=== PATIENT | female | born 1945 | race Two or more races ===

== ENCOUNTER 2024-10-11 03:10 | Inpatient (IN) | payer MEDICARE, MEDICAID, SELFPAY ==
[2024-10-11] VITALS (19 sets, daily range): BP systolic 104–171; BP diastolic 69–135; PULSE 72–113; RESP 15–29; TEMP 36.6; O2SAT 93–97; BMI 32.5; BMI 27.6
--- NOTE | 2024-10-11 03:15 | EKG_ITS ---
[facility] Test Date: 2024-10-11 Pat Name: JOHNATHON TAM Department: Room: - Gender: Female Sql Manager: : 1945 Requested By: Gabino Velez Order Number: [id number] Reading MD: Gabino Velez Measurements Intervals [place] Rate: 96 P: TX: QRS: 0 QRSD: 99 T: 116 QT: 374 QTc: 474 Interpretive Statements ATRIAL FIBRILLATION LOW QRS VOLTAGE IN PRECORDIAL LEADS [QRS DEFLECTION < 1.0 mV IN CHEST LEADS] ANTEROSEPTAL MYOCARDIAL INFARCTION , PROBABLY OLD [40+ ms Q WAVE IN V1-V4] No previous ECG available for comparison /store/S0/[id number].pdf
--- NOTE | 2024-10-11 04:00 | XR_ITS ---
Examination: AP chest single view TECHNIQUE: AP portable upright chest single view Exam date and time: October 11, 2024 0409 hours Comparison May 23, 2006. INDICATIONS: Dyspnea today FINDINGS: Mild CHF Significantly large pericardial contour. Prominent vascular congestion including prominent central pulmonary arteries with septal edema throughout the lungs Pneumonia left base Prominent osteopenia IMPRESSION: Prominent CHF Left base pneumonia Pulmonary artery hypertension
--- NOTE | 2024-10-11 04:03 | EDNOTE_ITS ---
ED SOB =RME/HPI General Chief Complaint: Shortness of Breath/Dyspnea Stated Complaint: SOB Time Seen by Provider: 10/11/24 03:36 Arrival date/time: 10/11/24 03:10 RME / HPI RME / HPI Narrative: Dr. Toscano?s Main ED Evaluation: 79yo female with a history of HTN presents to the ED for a chief complaint of shortness of breath. Son at bedside states the patient was complaining of shortness of breath tonight, reporting she was wheezing. He states her symptoms continued despite sitting her up, so he brought her in for evaluation. Son and patient deny any fever, chills, sweating or any other associated symptoms. No known allergies. Patient states she stopped taking her medications 2 years ago. Related Data Home Medications ?Medication ?Instructions ?Recorded ?Confirmed Spironolact/Hydrochlorothiazid ##0 03/08/13 (Spironolact/Hctz 25/ Tab) bumetanide 2 mg tablet ##0 03/08/13 digoxin 125 mcg (0.125 mg) tablet QDAY ##0 03/08/13 furosemide 40 mg tablet ##0 03/08/13 potassium 99 mg tablet BID ##0 03/08/13 warfarin 2 mg tablet (Coumadin) ##0 03/08/13 Previous Rx's ?Medication ?Instructions ?Recorded acetaminophen 500 mg tablet 1 - 2 tab PO Q6HR PRN PAIN #30 tabs 03/06/16 (Tylenol Extra Strength) Allergies Allergy/AdvReac Type Severity Reaction Status Date / Time NKA* Allergy Uncoded 03/06/16 00:43 Review of Systems Review of Systems Systems Reviewed: All systems reviewed, normal except as documented Narrative Review of Systems: Gen: No fever, no chills, no weight loss EYES: No discharge, no visual changes, no pain HEENT: No ear pain, no congestion, no sore throat PULM: + shortness of breath, no cough, no congestion CV: No chest pain, no dyspnea on exertion, no palpitations GI: No nausea, no vomiting, no diarrhea, no pain, no constipation : No frequency, no urgency, no dysuria Musc/skel: No joint pain, no back pain Skin: No rash. Warm and dry. Psyc: No hallucinations, no depression Heme/Lymph: No easy bleeding or bruising tendencies Neuro: No weakness, no headache Past Medical History Past Medical History CARDIAC: Negative Congestive Heart Failure RESPIRATORY: Negative Chronic Obstructive Pulmonary Disease (COPD) GENITOURINARY: Negative Renal Disease ENDOCRINE: Negative Diabetes Mellitus Type 1 or Diabetes Mellitus Type 2 Social History SMOKING STATUS: Never smoker ED Exam Narrative Physical exam: GENERAL APPEARANCE: alert and oriented x 4, well-developed, well-nourished, no acute distress VITALS: All vitals were reviewed and the pulse ox is 95% on room air, which is normal according to my interpretation. HEENT: Normocephalic, atraumatic; pupils equal, round, reactive to light; EOMI; mucous membranes pink, moist; oropharynx clear NECK: Supple LUNGS: CTABL; no wheezes, no rales, no rhonchi HEART: Regular rate, regular rhythm; normal S1, S2; no murmurs ABDOMEN: non distended; normal BS; soft, no tenderness, no guarding, no rebound; no masses, no organomegaly, no hernia BACK: no CVA tenderness : Multiple chaperones present. Erythematous plaque-like extensive rash to the groin, inner thighs, mons pubis, and buttocks with multiple areas of skin breakdown without any active bleeding or discharge. EXTREMITIES: atraumatic; 3+ pitting edema to the BLE with small contusions NEUROLOGIC: awake; alert and oriented x4; cranial nerves II-XII grossly intact; no focal sensory or motor deficits PSYCHIATRIC: appropriate mood and affect SKIN: warm, dry, normal color; no rashes Course Course Course Narrative: CXR is ordered for determining the etiology of shortness of breath. Nicardipine ordered due to the patient's blood pressure being 152/118. Quality Measures none Orders Category Date Time Status Bedside COVID-19 Antigen Test NOW Care 10/11/24 05:25 Active Bedside Influenza A&B Antigen Test NOW Care 10/11/24 05:[address] Screening NOW Care 10/11/24 05:26 Active Assistant Professor Of Marine Biology NOW Care 10/11/24 04:00 Active Continuous Pulse Oximetry NOW Care 10/11/24 04:00 Completed EKG (ED ONLY) *Do not use* NOW Care 10/11/24 03:15 Completed Insert IV NOW Care 10/11/24 04:[address] chest w con Stat Exams 10/11/24 05:26 Ordered EKG (ED Only) Stat Exams 10/11/24 03:15 Ordered XR chest 1V portable Stat Exams 10/11/24 04:00 Taken Arterial Blood Gas Stat Lab 10/11/24 04:23 Completed B-Type Natriuretic Peptide Stat Lab 10/11/24 04:24 Completed Blood Culture (Lab) Stat Lab 10/11/24 05:00 Received CBC Stat Lab 10/11/24 04:24 Completed Comprehensive Metabolic Panel Stat Lab 10/11/24 05:30 Received Drug Screen,Urine Stat Lab 10/11/24 04:57 Received LDH (Lactate Dehydrogenase) Stat Lab 10/11/24 05:30 Received Lactate (Lactic Acid) Stat Lab 10/11/24 05:30 Results Magnesium Stat Lab 10/11/24 05:30 Received Partial Thromboplastin Time Stat Lab 10/11/24 04:24 Completed Phosphorous Stat Lab 10/11/24 05:30 Received Procalcitonin Stat Lab 10/11/24 05:30 Received Prothrombin Time with INR Stat Lab 10/11/24 04:24 Completed Troponin I Stat Lab 10/11/24 05:30 Received Urinalysis Stat Lab 10/11/24 04:57 Completed Azithromycin Inj [Zithromax Inj] 500 mg Med 10/11/24 04:31 Discontinued Sodium Chloride 0.9% 250 ml [Ns] 250 ml IV X1 Clotrimazole Cr 1% [Lotrimin Cr 1%] Med 10/11/24 04:05 Discontinued See Dose Instructions TOP X1 ONE Morphine Inj Med 10/11/24 05:51 Discontinued 2 mg IVP X1 ONE Nicardipine/Ns 20Mg Ivpb [Cardene Ivpb] Med 10/11/24 05:27 Active 20 mg in 200 ml IV 5 mg/hr Ondansetron Inj [Zofran Inj] Med 10/11/24 05:51 Discontinued 4 mg IV X1 ONE cefTRIAXone/D5w 1gm IV premix [Rocephin/D5w 1gm IV Med 10/11/24 04:31 Discontinued premix] 50 ml IV X1 hydrALAZINE INJ [Apresoline Inj] Med 10/11/24 05:03 Discontinued 10 mg IV X1 ONE Reevaluation(s) Reevaluation #1: Patient is now complaining of significant chest pain, mid-back pain, and shortness of breath. Morphine ordered. CT pending. Time: 05:49 Vital Signs Vital signs: Vital Signs Temperature 97.8 F 10/11/24 03:33 Pulse Rate 105 H 10/11/24 03:33 Respiratory Rate 20 10/11/24 03:33 Blood Pressure 163/107 H 10/11/24 03:33 Pulse Oximetry (%) 95 10/11/24 03:33 Oxygen Delivery Method Room Air 10/11/24 03:33 Shortness of Breath / Dyspnea MDM Narrative MDM Narrative:: Scribe Attestation: 10/11/24 Jeannie Morrison am scribing for and in the presence of Dr. Toscano. Patient data External records reviewed:: [facility] previous records (Per chart review, patient has no relevant previous ED visits.) Clinical information provided by:: patient Social determinants that could affect healthcare access:: none Patient has the following chronic illnesses:: HTN How is presenting disease/condition affected by chronic disease/condition?: uneffected by Evaluation data The following diagnostics were reviewed and interpreted by me:: lab results, radiology exam(s) and EKG tracing(s) Lab and/or radiology exams considered but not ordered:: none Interpretation Summary: CBC is normal, ABG is normal, BNP is 434, Lactate is elevated at 2.5, according to my interpretation. CXR shows cardiomegaly, widened mediastinum, vascular congestion, right middle lobe infiltrate, and a small left pleural effusion, according to my interpretation. EKG done at 0331, aFib RvR, rate of 112, left axis deviation, Q waves in V1-V3, lead III, and avF, inverted T-waves in lead III and avL, no STEMI, according to my interpretation. Medications / Prescriptions Medications or Prescriptions considered but not ordered:: none Medication administrations:: Medication Administration History Nicardipine/Sodium Chloride (Cardene Ivpb) 20 mg in 200 mls @ 50 mls/hr IV .Q4H PRN; Protocol PRN Reason: PER PROTOCOL Stop: 11/10/24 05:26 Discontinued Medications Clotrimazole (Clotrimazole Cr 1% 30 Gm Tube) 0 gm TOP X1 ONE Stop: 10/11/24 04:06 Last Admin: 10/11/24 04:30 Dose: Not Given Documented By: TC Non-Admin Reason: Other, see note Comments: Medication unavailable Hydralazine HCl (Hydralazine Inj 20 Mg/Ml Vial) 10 mg IV X1 ONE Stop: 10/11/24 05:04 Last Admin: 10/11/24 05:15 Dose: 10 mg Documented By: TC Ceftriaxone Sodium/Dextrose (Rocephin/D5w 1gm Iv Premix) 50 mls @ 100 mls/hr IV X1 ONE Stop: 10/11/24 05:00 Last Infusion: 10/11/24 05:06 Dose: Infused Documented By: Admin: 10/11/24 04:46 Dose: 100 mls/hr Documented By: TC Azithromycin 500 mg/ Sodium (Chloride) 250 mls @ 250 mls/hr IV X1 ONE Stop: 10/11/24 05:30 Last Admin: 10/11/24 04:48 Dose: 250 mls/hr Documented By: TC Morphine Sulfate (Morphine Sulf Inj 10 Mg/Ml Vial) 2 mg IVP X1 ONE Stop: 10/11/24 05:52 Ondansetron HCl (Ondansetron Inj 2 Mg/Ml Inj 2 Ml) 4 mg IV X1 ONE; Protocol Stop: 10/11/24 05:52 see above Consultations Consultation(s) initiated? (list below): No Diagnosis Shortness of Breath Differential Diagnosis: community acquired pneumonia and other (CHF exacerbation, Influenza, COVID, sepsis) Most likely diagnosis given after review of the tests above:: final dx pending at signout. Admission Indicated Admission indicated?: not indicated Admission Request Was there a request for admission?: No Disposition Plan Disposition Plan: other (specify) (Signed out to Dr. Hardin at [address] chest and labs.) Critical Care Time Critical Care Time Critical Care Time: Yes Total Critical Care Time (min.): 75 Attestation: The high probability of sudden, clinically significant deterioration in the patient?s condition required the highest level of my preparedness to intervene urgently. The services I provided to this patient were to treat and/or prevent clinically significant deterioration. Services included the following: chart data review, reviewing nursing notes and/or old charts, documentation time, senior market intelligence consultant collaboration regarding findings and treatment options, medication orders and management, direct patient care, vital sign assessments and ordering, interpreting and reviewing diagnostic studies and lab tests. Aggregate critical care time includes only time during which I was engaged in work directly related to the patient?s care, as described above, whether at bedside or elsewhere in the Emergency Department. It did not include time spent performing other reported procedures or the services of residents, students, nurses or physician assistants. Discharge Plan Prescriptions/Referrals Prescriptions/Med Rec: No Action furosemide 40 MG tablet Qty: 0 bumetanide 2 MG tablet Qty: 0 potassium 99 MG tablet BID Qty: 0 warfarin [Coumadin] 2 MG tablet Qty: 0 digoxin 125 MCG tablet QDAY Qty: 0 Spironolact/Hydrochlorothiazid (Spironolact/Hctz 25/25 Tab) 1 TAB tablet Qty: 0 acetaminophen [Tylenol Extra Strength] 500 MG tablet 1 - 2 tab PO Q6HR PRN (Reason: PAIN) Qty: 30 0RF Referrals: No Primary/Family,Physician [Primary Care Provider] - In 1 week Problem List Clinical Impression: Dyspnea, Pneumonia Patient/Caregiver Discharge Instructions Print Language: Chilean
[2024-10-11 04:27] LABS: Base Excess 1 (-3-3); HCO3 25 mEq/L (20-26); Inspired Oxygen, FIO2 21 %; O2 Saturation 98 % (91-98); PCO2 35 mmHg (32.0-48.0); PO2 87 mmHg (83-108); pH, Arterial 7.46 (7.35-7.45)
[2024-10-11 04:30] LABS: Allen Test Performed/OK; Inspired O2, VO2 Liters 2 L/min; Puncture Site Right Radial
[2024-10-11] MEDS: cefTRIAXone/D5w 1gm IV premix 50 ML IV (04:46)
[2024-10-11] MEDS: AZITHROMYCIN INJ 500 MG in SODIUM CHLORIDE 0.9% 250 ML 250 ML 250 MG IV (04:48)
[2024-10-11 04:51] LABS: Basophils % (Auto) 1 % (0-2.5); Eosinophils # (Auto) 0.2 Thou/mm3 (0.0-0.5); Eosinophils % (Auto) 3 % (0-10); Hematocrit 44.5 % (36.0-46.0); Hemoglobin 14.6 g/dL (12.0-16.0); Immature Granulocytes % (Auto) 1 % (0-0); Immature Granulocytes Auto 0.03 Thou/mm3 (0.00-0.00); Lymphocytes # (Auto) 1.1 Thou/mm3 (1.0-4.8); Lymphocytes % (Auto) 17 % (10-50); Mean Corpuscular HGB Conc 32.8 g/dl (31.0-37.0); Mean Corpuscular Hemoglobin 29.9 pg (25.0-35.0); Mean Corpuscular Volume 91 fL (80-100); Monocytes # (Auto) 0.7 Thou/mm3 (0.0-0.8); Monocytes % (Auto) 10 % (0-12); Neutrophils # (Auto) 4.6 Thou/mm3 (1.8-7.7); Neutrophils % (Auto) 69 % (37-80); Nucleated Red Blood Cell % 0 /100 WBC (0); Platelet Count 164 Thou/mm3 (140-440); RDW Standard Deviation 48.9 fL (36.4-46.3); Red Blood Count 4.88 Miln/mm3 (4.00-5.20); White Blood Count 6.7 Thou/mm3 (3.6-11.0)
[2024-10-11 05:12] LABS: INR 1.1 (0.9-1.3); Partial Thromboplastin Time 30.5 Seconds (22.0-36.0); Prothrombin Time 12.4 Seconds (9.0-12.2)
[2024-10-11 05:14] LABS: B-Type Natriuretic Peptide 434 pg/mL (0-100)
[2024-10-11] MEDS: hydrALAZINE INJ 20 MG/ML VIAL 10 MG IV (05:15)
[2024-10-11 05:38] LABS: Collection Type, Urine Catheter
[2024-10-11 05:46] LABS: Bilirubin,Urine Negative (Negative); Blood,Urine Negative (Negative); Clarity,Urine Turbid (Clear/Hazy); Color,Urine Yellow (Lt Yel-Yel); Glucose, Urine Negative (Negative); Ketones,Urine Negative (Negative); Leukocyte Esterase,Urine Positive (Negative); Nitrite,Urine Negative (Negative); Protein,Urine 1+ (Neg - Trace); RBC,Urine 4 /hpf (0-3); Specific Gravity,Urine 1.026 (1.001-1.035); Squamous Epithelial Cell,Urine 5 /hpf (0-5); WBC,Urine 10 /hpf (0-5)
[2024-10-11 05:46] LABS: Lactate (Lactic Acid) 2.5 mMol/L (0.4-2.0)
[2024-10-11] MEDS: NICARDIPINE/NS 20MG IVPB 20 MG/200 ML BAG 25 MG IV (05:50)
--- NOTE | 2024-10-11 06:06 | XR_ITS ---
Examination: CT abdomen with intravenous contrast CT pelvis with intravenous contrast 2-D coronal reconstructions 2-D sagittal reconstructions Date and time of exam:October 11, 2024 0651 hours INDICATION: Chest pain shortness of breath hypoxia and abdominal pain today. CTDI: vol (mGy) 18.8 DLP: (mGycm) 880 Technique: Multiple axial sections of the abdomen and pelvis have been obtained. 64 slice high-resolution scanner used. 3 mm axial sections have been obtained, post intravenous injection 100 cc Isovue-370 2-D sagittal, coronal reconstructions obtained. Low dose protocols were performed. One or more of the following dose reduction techniques were used; automated exposure control, adjustment of the mA and/or KV according to patient size, use of iterative reconstruction technique. Findings: Please see the CT chest report Moderate enlargement cardiac contour Pneumonia at the left base with small left pleural effusion Liver is irregular in contour with heterogeneous radiodensity Anasarca Spleen is not enlarged Gallbladder sludge and small stones with gallbladder wall thickening Left adrenal nodules, 12 mm, 20 mm, indeterminate Moderate bilateral renal parenchymal scar formation, no renal or ureteral calculi, no hydronephrosis No bowel obstruction Normal appendix Umbilical hernia defect, 32 mm, containing transverse colon but no incarcerated bowel Atrophic anteverted uterus Moderate to large amount of stool in the rectum with thickening of the rectal wall Severe osteopenia Urinary Kearns catheter in contracted urinary bladder, urinary bladder wall thickening IMPRESSION: Suspect primary hepatocellular disease Anasarca Recommend hepatobiliary sonography to exclude acute calculus cholecystitis Indeterminate left adrenal nodules, recommend MRI abdomen adrenal glands follow up to exclude left adrenal gland tumors Moderate bilateral renal parenchymal scar formation, no hydronephrosis Normal appendix 32 mm umbilical hernia defect containing transverse colon but no incarcerated bowel or bowel obstruction Moderate to large amounts of stool in the rectum with thickening of the rectal wall, differential would include proctitis Cystitis pattern
--- NOTE | 2024-10-11 06:07 | XR_ITS ---
Examination: CT brain head without contrast. 2-D sagittal coronal reconstructions Date and time of exam:October 11, 2024 at 0638 hours INDICATIONS: Onset altered mental status in a COMPARISON: April 03, 2005 CTDI: vol (mGy):48.6 DLP: (mGycm):1010 Technique: Multiple CT axial sections of the brain have been obtained, 5 mm slice thickness. Contrast has not been administered. 2-D sagittal, coronal reconstructions have been obtained Low dose protocols were performed. One or more of the following dose reduction techniques were used; automated exposure control, adjustment of the mA and/or KV according to patient size, use of iterative reconstruction technique. Findings: No significant ventricular enlargement. Intra-axial or extra-axial hemorrhage density is not seen. No mass effect or midline shift Basal cisterns are not remarkable. Fourth ventricle is midline. Cranial vault intact. Impression: Negative for acute hemorrhage, mass effect or midline shift Clinical correlation advised and follow up accordingly
--- NOTE | 2024-10-11 06:07 | XR_ITS ---
Examination: CTA chest with intravenous contrast 2-D reconstructions 3-D reconstructions, vascular Date and time of exam: October 11, 2024 0651 hours INDICATIONS: Hypoxia chest pain shortness of breath today CTDI: vol (mGy) 12.5 DLP: (mGycm) 440 Technique: Multiple axial sections of the thorax have been obtained. 3 mm slice thickness, from below the hemidiaphragms to above the apices of the lungs. Mediastinal and lung density settings have been obtained. 2-D sagittal and coronal reconstructions. 3-D angiographic renderings, 3-D volume renderings, 3D post processing, vascular maximum intensity projections obtained. Contrast administered is 100 cc Isovue-370. Low dose protocols were performed. One or more of the following dose reduction techniques were used; automated exposure control, adjustment of the mA and/or KV according to patient size, use of iterative reconstruction technique. Findings: Mild thyromegaly AP dimension ascending thoracic aorta 3.8 cm no thoracic aortic dissection Pulmonary artery hypertension, main pulmonary artery segment 4.5 cm No pulmonary artery filling defects Prominent four-chamber cardiac enlargement Mitral valvular calcification Anasarca Prominent vascular congestion with septal pulmonary edema throughout the lungs Opacity left base consistent with pneumonia with small left minimal right pleural fluid Severe osteopenia with moderate thoracic spondylosis IMPRESSION: Prominent four-chamber cardiac enlargement Mild CHF Pulmonary artery hypertension Negative for pulmonary artery emboli Mild left base pneumonia
[2024-10-11 06:08] LABS: Amphetamine/Methamp Scrn,U Negative (Negative); Barbiturate Screen,Urine Negative (Negative); Benzodiazepines Screen,Urine Negative (Negative); Benzoylecgonine Screen, Ur Negative (Negative); Fentanyl Screen,Urine Negative (Negative); Opiate Screen,Urine Negative (Negative); THC Screen,Urine Negative (Negative)
[2024-10-11] MEDS: MORPHINE SULF INJ 10 MG/ML VIAL 2 MG IVP (06:09)
--- NOTE | 2024-10-11 06:11 | XR_ITS ---
Examination: Venous duplex lower extremity sonogram, bilateral. Date and time of exam: October 11, 2024 0744 hours INDICATIONS: Bilateral leg swelling and pain beginning 3 weeks ago Technique: Multiple sonographic images of the deep venous system have been obtained. B-mode/2-D grayscale imaging of vascular structures and Doppler spectral analysis (waveforms) and color performed Both legs are examined. Findings: Deep venous systems do not demonstrate abnormal echogenicity. Right knee popliteal cyst 4.3 x 1.6 x 2.8 cm All visualized deep veins exhibit compressibility. All visualized deep veins exhibit augmentation. Impression: Negative for deep vein thrombosis
[2024-10-11] MEDS: ONDANSETRON INJ 2 MG/ML INJ 2 ML 4 MG IV (06:16)
[2024-10-11] MEDS: FUROSEMIDE INJ 10 MG/ML 4ML VIAL 80 MG IVP (06:16)
[2024-10-11] MEDS: MethylPREDNISolone SOD SUCC 62.5 MG/ML 2ML VIAL 125 MG IVP (06:17)
[2024-10-11 06:24] LABS: Alanine Aminotransferase 18 U/L (10-49); Albumin/Globulin Ratio 1.6 (1.2-2.2); Alkaline Phosphatase 69 U/L (46-116); Anion Gap 10 (7-16); Aspartate Amino Transferase 13 U/L (0-34); BUN/Creatinine Ratio 28 Ratio (12-20); Bilirubin,Total 1.9 mg/dL (0.3-1.2); Blood Urea Nitrogen 17 mg/dL (9-23); Calcium 10.2 mg/dL (8.3-10.6); Calcium (Corrected) 10.2 mg/dL (8.5-10.1); Carbon Dioxide 27.4 mMol/L (20.0-31.0); Chloride 106 mMol/L (98-107); Creatinine (Component) 0.6 mg/dL (0.6-1.3); Estimated Creatinine Clearance 73.6 mL/min (>60); Globulin 2.5 gm/dL (2.3-3.5); Glucose 77 mg/dL (74-106); LDH (Lactate Dehydrogenase) 375 U/L (120-246); Magnesium 1.6 mg/dL (1.6-2.6); Osmolality,Calculated 285 (275-295); Phosphorous 2.4 mg/dL (2.4-5.1); Potassium 3.4 mMol/L (3.4-5.1); Procalcitonin 0.17 ng/ml (0.0-0.49); Sodium 143 mMol/L (136-145); Total Protein 6.5 gm/dL (5.7-8.2); eGFR > 60 See Note
[2024-10-11 06:26] LABS: Troponin I 1.761 ng/mL (0.0-0.045)
[2024-10-11] MEDS: NITROGLYCERIN OINT 2% 1 INCH PACKET 2 INCH TOP (06:26)
[2024-10-11] MEDS: ALBUTEROL/IPRATROPIUM (Duoneb) RT SOL 3 ML NEBU INH (06:28)
[2024-10-11 06:50] LABS: Thyroid Stimulating Hormone 4.27 uIU/mL (0.55-4.78)
[2024-10-11 06:51] LABS: D-Dimer 3230 ng/mL (<600)
[2024-10-11] MEDS: ASPIRIN 81 MG CHEW 324 MG PO (07:29)
--- NOTE | 2024-10-11 07:32 | XR_ITS ---
Examination: Abdomen sonogram, Limited Date and time of exam: October 11, 2024 1104 hours INDICATIONS: Right abdomen tenderness today Technique: Real-time cazares scale transabdominal sonographic images of the upper abdomen obtained. Findings: Multiple small gallstones Distended gallbladder Gallbladder wall 0.7 cm with edema Common bile duct 0.5 cm Pancreatic head 2.1 cm Liver 15.9 cm lobular contour fatty infiltration Normal hepatopedal portal venous flow Patent IVC IMPRESSION: Acute calculus cholecystitis Consider MRCP follow-up to confirm cholecystitis and exclude small stones in the common bile duct
[2024-10-11] MEDS: FLUCONAZOLE/NS 400 MG IVPB 400 MG/200 ML BAG 100 MG IV (07:36)
[2024-10-11] MEDS: MORPHINE SULF INJ 10 MG/ML VIAL 4 MG IVP (07:39)
[2024-10-11 08:18] LABS: Troponin I 1.656 ng/mL (0.0-0.045)
[2024-10-11 08:43] LABS: Reflex Lactate? Y
[2024-10-11 09:06] LABS: Lactic Acid, 3 HR 2.4 mMol/L (0.4-2.0)
[2024-10-11 09:19] LABS: Respiratory Syncytial Virus Ag Negative (Negative)
[2024-10-11] MEDS: METOPROLOL TARTRATE 25 MG TABLET PO (11:46)
--- NOTE | 2024-10-11 11:47 | ECHO_ITS ---
Transthoracic Echo Report Ht (in): 62 Wt (lb): 178 Exam Location: Echo Lab Status: Emergency [employer] Technician: Mandie Lang Indications: Procedure Performed: BP: 129 / 94 HR: 105 Technical Quality: Technically difficult study MEASUREMENTS (Male / Female) Normal Values 2D ECHO LVOT Diameter 1.9 cm LA Volume Index 82.8 cm?/m? 16 - 28 cm?/m? M-MODE Aortic Root Diameter MM 2.1 cm LA Systolic Diameter MM 7.0 cm LA Ao Ratio MM 3.3 AV Cusp Separation MM 1.5 cm DOPPLER AV Peak Velocity 140.0 cm/s AV Peak Gradient 7.8 mmHg AV Mean Gradient 4.0 mmHg AV Velocity Time Integral 23.6 cm AI Peak Velocity 364.0 cm/s AI Peak Gradient 53.0 mmHg AI Pressure Half Time 849.0 ms LVOT Peak Velocity 90.9 cm/s LVOT Peak Gradient 3.3 mmHg LVOT Velocity Time Integral 13.3 cm LVOT Cardiac Index 2070.4 cm?/min?m? AV Area Cont Eq vti 1.6 cm? AV Area Cont Eq pk 1.8 cm? MV Area PHT 4.4 cm? MR Peak Velocity 452.0 cm/s MR Peak Gradient 81.7 mmHg Mitral E Point Velocity 73.7 cm/s LV E' Lateral Velocity 7.4 cm/s Mitral E to LV E' Lateral Ratio 10.0 LV E' Septal Velocity 4.8 cm/s Mitral E to LV E' Septal Ratio 15.4 TR Peak Velocity 405.3 cm/s TR Peak Gradient 65.7 mmHg PV Peak Velocity 144.0 cm/s PV Peak Gradient 8.3 mmHg FINDINGS Left Ventricle Normal left ventricular size and systolic function with no obvious regional wall motion abnormalities. Normal left ventricular diastolic filling pattern for age. The ejection fraction is visually estimated at 55 %. Right Ventricle The right ventricle is normal in size. Right ventricular systolic function is moderately decreased. The estimated right ventricular systolic pressure, 83 mmHg. RAP 15. Left Atrium The left atrial cavity size is severely increased. Right Atrium The right atrial cavity size is severely increased. Atrial Septum The interatrial septum appears normal with no evidence of a shunt. Aorta The aorta is normal by two-dimensional, color flow and Doppler interrogation. Mitral Valve The mitral valve is normal by two-dimensional, color flow and Doppler interrogation. There is moderate mitral valve regurgitation. Mild MAC Aortic Valve [id number] aortic valve regurgitation. Tricuspid Valve The tricuspid valve is normal by two-dimensional, color flow and Doppler interrogation. There is moderate tricuspid valve regurgitation. Pulmonic Valve The pulmonic valve is not well visualized. There is no significant pulmonic valve regurgitation. Vessels Less than 50% respiratory change in dimension of the inferior vena cava abnormal. Pericardium The pericardium is normal by two-dimensional imaging. There is no significant pericardial effusion. CONCLUSIONS Indication: CHF and PAH Normal left ventricular size. Estimated EF 55%. RV is normal in size. RV systolic function is moderately decreased. Estimated RVSP, 83 mmHg. RAP 15. Severe biatrial dilation. Severe mitral annulus calcification with mild stenosis Moderate MR and TR. Aortic valve sclerosis with Mild to moderate aortic regurgitation Less than 50% respiratory change in dimension of the inferior vena cava abnormal. Domitila Saba (Electronically Signed) Final Date: 13 October 2024 00:40
[2024-10-11] MEDS: Erythromycin Op Oint 0.5% 1 GM PACKET LEFT EYE (11:48)
[2024-10-11] MEDS: POTASSIUM CHL 10 mEq IVPB 10 MEQ/100 ML BAG 100 MEQ IV (11:49)
[2024-10-11] MEDS: Magnesium Sulfate 2 GM Ivpb 2 GM/50 ML BAG IV (11:49)
[2024-10-11 13:35] LABS: Troponin I 1.608 ng/mL (0.0-0.045)
--- NOTE | 2024-10-11 13:59 | XR_ITS ---
Examination: AP pelvis single view TECHNIQUE: AP supine pelvis portable single view Exam date and time: October 11, 2024 1503 hours INDICATIONS: Patient fell today with into the pelvis, pelvic pain FINDINGS: The films are rotated No acute hip or pelvic fracture noted IMPRESSION: Limited study No acute hip or pelvic fracture noted Repeat this study short-term as clinically warranted
--- NOTE | 2024-10-11 14:03 | XR_ITS ---
Examination: ARELIS, hepatobiliary radioisotope scan Gallbladder ejection fraction study. Date and time of exam: October 12, 2024 at 0929 hrs. Indications: Upper abdominal pain this week, multiple gallstones on gallbladder sonogram October 11, 2024 Technique: 5.8 mCi of 99M Hepatolite administered. Serial imaging then obtained from immediate through 60 minutes. 1.6 mcg selective catheter Kinevac administered for gallbladder ejection fraction study. Findings: Radioisotope activity within the liver is reasonably homogenous. Gallbladder, common bile duct small bowel activity noted Impression: Gallbladder activity Abnormal gallbladder ejection fraction, 23%, normal greater than 35%
--- NOTE | 2024-10-11 14:07 | ESHP_ITS ---
Documentation for date of: 10/11/24 HPI History of Present Illness Chief complaint: Shortness of breath History of present illness: 79-year-old female with past medical history of atrial fibrillation, hypertension, coronary artery disease, anticoagulated with warfarin presents to the ED due to shortness of breath. Per this time patient started developing shortness of breath 1 day ago. Shortness of breath on exertion and at rest reported. Patient also has been having leg swelling for the past 2 weeks that has been progressing. Patient also complaining of right upper extremity pain. 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 Denies headache, blurry vision, chest pain, orthopnea, PND. Patient will be admitted for acute hypoxic respiratory failure secondary to CHF exacerbation. ED course: Vitals on arrival significant for tachycardia, blood pressure 163/107 rest of vitals unremarkable. Labs significant for D-dimers 3230, ABG showed pH 7.46, lactic acid 2.4, corrected calcium 10.2, total bilirubin 1.9, LDH 375, troponin 1.608, BNP 434, UA was done negative for infection, U-Tox negative, RSV negative. Chest x-ray showed left base pneumonia, prominent CHF and pulmonary artery hypertension. Abdominal CT showed Suspect primary hepatocellular disease, Anasarca, Recommend hepatobiliary sonography to exclude acute calculus cholecystitis, Indeterminate left adrenal nodules, recommend MRI abdomen adrenal glands follow up to exclude left adrenal gland tumors, Moderate bilateral renal parenchymal scar formation, no hydronephrosis, Normal appendix, 32 mm umbilical hernia defect containing transverse colon but no incarcerated bowel or bowel obstruction, Moderate to large amounts of stool in the rectum with thickening of the rectal, wall, differential would include proctitis, Cystitis pattern. Chest CTA negative for PE. Head CT negative. Ultrasound of bilateral lower extremities negative for DVT. Gallbladder ultrasound showed acute calculus cholecystitis. EKG showed atrial fibrillation. PMHx: As above SxHx: None Social Hx: Denies smoking, denies illicit substances, denies alcohol use FHx: Unknown Review of Systems Review of Systems ROS Unobtainable: unobtainable due to mental status Exam Vital Signs Temp Pulse Resp BP Pulse Ox O2 Del Method O2 Flow Rate 97.8 F 90 17 116/79 95 Nasal Cannula 2 10/11/24 03:33 10/11/24 12:21 10/11/24 12:21 10/11/24 12:06 10/11/24 12:21 10/11/24 12:06 10/11/24 12:21 Narrative Exam Physical Exam GENERAL: NAD, AAOx3 HEENT: Moist mucosa. Eyes open, symmetrical, & clear CARDIO: Heart RRR, left upper sternal border murmur, mitral area murmur PULM: Bilateral crackles GI: Abdomen soft, nondistended, tenderness pain on palpation. BSx4 : Excoriations around the genital area SKIN/MSK/EXT: Right lower extremity pitting edema +2, tenderness pain on palpation bilateral lower extremities. Bruising on all 4 extremities pedal pulses present B/L NEURO: AAOx3, no focal neuro deficits, able to move all 4 extremities Results: Labs 10/11/24 04:24 10/11/24 05:30 Labs: Short CBC 10/11/24 Range/Units 04:24 WBC 6.7 (3.6-11.0) Thou/mm3 Hgb 14.6 (12.0-16.0) g/dL Hct 44.5 (36.0-46.0) % Plt Count 164 (140-440) Thou/mm3 BMP 10/11/24 05:30 Sodium 143 Potassium 3.4 Chloride 106 Carbon Dioxide 27.4 BUN 17 Creatinine 0.6 Glucose 77 Calcium 10.2 Cardiac Enzymes 10/11/24 10/11/24 10/11/24 Range/Units 05:30 07:40 13:09 Troponin I 1.761 H* 1.656 H* 1.608 H* (0.0-0.045) ng/mL Liver Function 10/11/24 Range/Units 05:30 Total Bilirubin 1.9 H (0.3-1.2) mg/dL AST 13 (0-34) U/L ALT 18 (10-49) U/L Alkaline Phosphatase 69 (46-116) U/L Albumin 4.0 (3.4-4.8) gm/dL Urine 10/11/24 Range/Units 04:57 Urine Color Yellow (Lt Yel-Yel) Urine Clarity Turbid A (Clear/Hazy) Urine pH 6.0 (5.0-7.0) Ur Specific [place] 1.026 (1.001-1.035) Urine Protein 1+ A (Neg - Trace) Urine Glucose (UA) Negative (Negative) ABG Interpretation ABG results: 10/11/24 04:23 ABG pH 7.46 H ABG pCO2 35 ABG pO2 87 ABG HCO3 25 ABG O2 Saturation 98 ABG Base Excess 1 Quality Measures Quality Measures none Advance care planning discussed with:: patient Medications Home Medications and Allergies Home Medications ?Medication ?Instructions ?Recorded ?Confirmed ?Type Spironolact/Hydrochlorothiazid ##0 03/08/13 History (Spironolact/Hctz Tab) bumetanide 2 mg tablet ##0 03/08/13 History digoxin 125 mcg (0.125 mg) tablet QDAY ##0 03/08/13 H istory furosemide 40 mg tablet ##0 03/08/13 History potassium 99 mg tablet BID ##0 03/08/13 History warfarin 2 mg tablet (Coumadin) ##0 03/08/13 History Allergies Allergy/AdvReac Type Severity Reaction Status Date / Time No Known Allergies Allergy Unverified 10/11/24 11:51 Visit Medications Acetaminophen (Acetaminophen 325 Mg Tablet) 650 mg PO Q6H PRN PRN Reason: Fever >101.5 Stop: 11/10/24 11:43 Acetaminophen (Acetaminophen 325 Mg Tablet) 650 mg PO Q6H PRN PRN Reason: PAIN SCALE 1-3 (mild Stop: 11/10/24 11:43 Docusate Sodium (Docusate Sod 100 Mg Capsule) 100 mg PO QDAY [facility]; Protocol Stop: 11/11/24 08:59 Furosemide (Furosemide Inj 10 Mg/Ml 4ml Vial) 40 mg IVP BIDD [facility] Stop: 11/10/24 17:59 Piperacillin/Tazobactam/Dextrose (Zosyn) 3.375 gm in 50 mls @ 12.5 mls/hr IV Q8HR [facility] Stop: 10/18/24 21:59 Piperacillin/Tazobactam/Dextrose (Zosyn) 3.375 gm in 50 mls @ 100 mls/hr IV X1 ONE Stop: 10/11/24 14:29 Heparin Sodium/Dextrose (Heparin In D5w Ivpb) 25,000 unit in 250 mls @ 9.689 mls/hr IV .Q24H [facility]; Protocol Stop: 10/25/24 13:59 Ondansetron HCl (Ondansetron Inj 2 Mg/Ml Inj 2 Ml) 4 mg IV Q6H PRN; Protocol PRN Reason: NAUSEA OR VOMITING Stop: 11/10/24 11:43 Sennosides (Senna Tablet) 1 tab PO QDAY [facility]; Protocol Stop: 11/11/24 08:59 Discontinued Medications Albuterol/Ipratropium (Albuterol/Ipratropium (Duoneb) Rt Krystina 3 Ml Nebu) 3 ml INH X1 ONE Stop: 10/11/24 06:13 Last Admin: 10/11/24 06:28 Dose: 3 ml Aspirin (Aspirin 81 Mg Chew) 324 mg PO X1 ONE Stop: 10/11/24 06:40 Last Admin: 10/11/24 07:29 Dose: 324 mg Clotrimazole (Clotrimazole Cr 1% 30 Gm Tube) 0 gm TOP X1 ONE Stop: 10/11/24 04:06 Last Admin: 10/11/24 04:30 Dose: Not Given Enoxaparin Sodium (Enoxaparin Sod Inj 40 Mg/0.4 Ml Syringe) 40 mg SC QDAY [facility] Stop: 10/26/24 08:59 Erythromycin (Erythromycin Op Oint 0.5% 1 Gm Packet) 1 gm LEFT EYE X1 ONE Stop: 10/11/24 07:42 Last Admin: 10/11/24 11:48 Dose: 1 gm Furosemide (Furosemide Inj 10 Mg/Ml 4ml Vial) 80 mg IVP X1 ONE Stop: 10/11/24 06:04 Last Admin: 10/11/24 06:16 Dose: 80 mg Heparin Sodium (Porcine) (Heparin Sod Inj 5000 Unit/Ml Vial) 4,000 unit IV X1 ONE; Protocol Stop: 10/11/24 13:56 Hydralazine HCl (Hydralazine Inj 20 Mg/Ml Vial) 10 mg IV X1 ONE Stop: 10/11/24 05:04 Last Admin: 10/11/24 05:15 Dose: 10 mg Ceftriaxone Sodium/Dextrose (Rocephin/D5w 1gm Iv Premix) 50 mls @ 100 mls/hr IV X1 ONE Stop: 10/11/24 05:00 Last Infusion: 10/11/24 05:06 Dose: Infused Azithromycin 500 mg/ Sodium (Chloride) 250 mls @ 250 mls/hr IV X1 ONE Stop: 10/11/24 05:30 Last Infusion: 10/11/24 06:10 Dose: Infused Nicardipine/Sodium Chloride (Cardene Ivpb) 20 mg in 200 mls @ 50 mls/hr IV .Q4H PRN; Protocol PRN Reason: PER PROTOCOL Stop: 11/10/24 05:26 Last Titration: 10/11/24 06:13 Dose: 0 mg/hr, 0 mls/hr Fluconazole (Diflucan/Ns Ivpb) 400 mg in 200 mls @ 100 mls/hr IV X1 ONE Stop: 10/11/24 08:03 Last Infusion: 10/11/24 09:36 Dose: Infused Magnesium Sulfate (Magnesium Sulfate Ivpb) 2 gm in 50 mls @ 25 mls/hr IV X1 ONE Stop: 10/11/24 09:34 Last Admin: 10/11/24 11:49 Dose: 25 mls/hr Potassium Chloride (Kcl Ivpb) 10 meq in 100 mls @ 100 mls/hr IV STAT STA Stop: 10/11/24 08:34 Last Infusion: 10/11/24 13:21 Dose: Infused Methylprednisolone Sodium Succinate (Methylprednisolone Sod Succ 62.5 Mg/Ml 2ml Vial) 125 mg IVP X1 ONE Stop: 10/11/24 06:13 Last Admin: 10/11/24 06:17 Dose: 125 mg Metoprolol Tartrate (Metoprolol Tartrate 25 Mg Tablet) 25 mg PO X1 ONE Stop: 10/11/24 07:07 Last Admin: 10/11/24 11:46 Dose: 25 mg Morphine Sulfate (Morphine Sulf Inj 10 Mg/Ml Vial) 2 mg IVP X1 ONE Stop: 10/11/24 05:52 Last Admin: 10/11/24 06:09 Dose: 2 mg Morphine Sulfate (Morphine Sulf Inj 10 Mg/Ml Vial) 4 mg IVP X1 ONE Stop: 10/11/24 06:04 Last Admin: 10/11/24 07:39 Dose: 4 mg Nitroglycerin (Nitroglycerin Oint 2% 1 Inch Packet) 2 inch TOP X1 ONE Stop: 10/11/24 06:04 Last Admin: 10/11/24 06:26 Dose: 2 inch Ondansetron HCl (Ondansetron Inj 2 Mg/Ml Inj 2 Ml) 4 mg IV X1 ONE; Protocol Stop: 10/11/24 05:52 Last Admin: 10/11/24 06:16 Dose: 4 mg Assessment & Plan Plan 79-year-old female with past medical history of atrial fibrillation, hypertension, coronary artery disease, remote hx of anticoagulation with warfarin presents to the ED due to shortness of breath. Per this time patient started developing shortness of breath 1 day ago. Shortness of breath on exertion and at rest. Patient also has been having leg swelling for the past 2 weeks that has been progressing. Patient also complaining of right upper extremity pain. 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 Admitted for acute hypoxic respiratory failure secondary to CHF exacerbation. #Acute hypoxic respiratory failure secondary to #CHF #Pulmonary hypertension #Left-sided pneumonia #Concern for PE-ruled out Patient presented to the ED with shortness of breath and mild bilateral lower extremity edema On examination patient noted to have bilateral crackles Chest x-ray shows prominent CHF pattern Patient was having tenderness in the bilateral lower extremities Venous ultrasound of bilateral lower extremities negative for DVT CTA chest negative for pulmonary embolism ? Lasix 40 mg twice daily ? Strict I's and O's ? Fluid restriction 1200 mL ? Daily weights ? IV Zosyn ? Echo ordered ? Blood cultures ordered ? Cardiology consulted appreciate recommendations #Atrial fibrillation EKG showed atrial fibrillation [id number]: 5 ? On heparin drip ? Pending cardiology recommendations #Hypertension Patient currently normotensive Patient does not take any medications for more than 7 years ? Consider adding antihypertensives as needed #Concern for acute calculus cholecystitis?low suspicion Patient has tenderness on the abdomen Gallbladder ultrasound showed acute cholecystitis Spoke to Dr. Barrera has very low suspicion for acute cholecystitis ? HIDA scan ordered ? General Surgeon Dr. Barrera consulted #Concern for malnutrition ? Dietitian consulted ? Consider social work associate referral #Multiple bruises Patient has multiple bruises across her body ? Multiple x-rays ordered follow-up Case discussed with my senior Dr. Marks PGY-[address] Ani Parr MD PGY-1 Disposition: Telemetry Fluids: None Feeding: Cardiac diet Thrombo prophylaxis: Heparin drip Gastric Ulcer prophylaxis: None CODE STATUS: Full code Senior resident attestation: Patient is an 79-year-old female, unkempt appearance, accompanied by son who provides most of the H&P as patient did not volunteer much history, but did answer simple questions appropriately. Per son patient has not taking any medications or kept up with any doctors appointments for the past 5 or 6 years, since he moved in with her. Prior to that he reported that patient used to have her medications in a pillbox and will take them regularly, but then she stopped taking medications. Chart review shows at 1 time patient was anticoagulated with warfarin, he was taking digoxin. Son is not aware if patient has any cardiac conditions, prior history of A-fib or cardiac murmur. He brought her to be checked out in the ER because of bilateral lower extremity swelling and edema, which started 2 weeks ago. Denied chest pain denied fever, did report shortness of breath. Per son, patient was ambulatory 2 weeks prior to presentation. #Concern for acute on chronic CHF #Acute hypoxic respiratory failure #Pulmonary arterial hypertension on CTPA #NSTEMI, likely type II #History of atrial fibrillation?rate controlled ? On 4 L nasal cannula oxygen, saturating well, cardiomegaly on chest x-ray, elevated D-dimers, CT angiogram was ordered, pulm embolism ruled out but showed pulmonary arterial hypertension, patient has loud 5/6 systolic murmur aortic and pulmonic area, patient denies history of chest pain, NSTEMI likely type II in the setting of acute hypoxic respiratory failure and pneumonia, troponins already peaked ? IV diuresis Lasix 40 mg twice daily, with strict I's and O's, Kearns's catheter ordered ? Echocardiogram ordered ? Cardiology consult to Dr. Rosa Kraus placed, appreciate recommendations ? Heparin drip initiated for anticoagulation as patient has high [id number] score, also not on current anticoagulation due to noncompliance with medications, high risk of stroke. #Pulmonary embolism ruled out #DVT ruled out ?Bilateral lower limb swelling likely due to CHF, ruled out DVT on Doppler ultrasound, pulm embolism ruled out on CT angiogram #Concern for acute calculus cholecystitis ?ultrasound gallbladder reported as caute calculus cholecystitis due to gallbladder wall edema, but patient does not have right upper quadrant tenderness, general surgeon Dr. Barrera was consulted, was not impressed with the diagnosis of cholecystitis, recommended getting HIDA scan to rule out acute cholecystitis. ? IV Zosyn 3.375 every 8 hourly, started 10/11/2024 ? Follow-up blood cultures #Pneumonia ? Bilateral pneumonia likely community-acquired, IV Zosyn for now, follow microbiology results. Patient evaluated and examined at the bedside, plan of care discussed with rest of the team including my attending physician, except as noted. Quresh PGY2 Attending Provider Attestation/Addendum Britany Valentin DO, attest that I was physically present for the blair portions of the service and evaluated the patient with the resident and I reviewed and discussed the case with the resident and agree with the resident's findings and plans of care as documented above Patient is an 79-year-old female with past medical history of A-fib, hypertension, CAD who was brought to ED for worsening shortness of breath. Patient had about 1 day of shortness of breath. She is noted to have bilateral lower extremity edema that has been progressive for the past 2 weeks. Patient is noted to have some scattered bruising on her bilateral lower extremities and some abrasions over her left elbow and forearm, but denies any recent falls. Her bilateral eyes appear injected as well consistent with bacterial conjunctivitis. Chest x-ray was done in the ED showing a large cardiac silhouette with left base pneumonia and vascular congestion. Findings are also consistent with pulmonary artery hypertension. Patient endorses dyspnea on exertion. CT abdomen pelvis shows possible acute cholecystitis, but have low clinical suspicion for this as patient has no pain and was able to tolerate her lunch without issue. A CTA was done due to elevated D-dimer and pulmonary embolism was ruled out. Bilateral lower extremity ultrasound also was negative for any DVT. Patient does not appear to take any medications at home. Will admit patient to telemetry for further workup medical management of acute CHF exacerbation versus pulmonary hypertension. Will order echo and consult cardiology for further recommendations. Will start patient on Lasix 40 mg IV twice daily. Patient is currently on room air at time of evaluation and does not appear to be in acute distress. However, patient was noted to have acute hypoxic respiratory failure upon presentation, which appears to have improved with receiving 80 mg of Lasix in the ED. Will start patient on heparin drip given history of A-fib and elevated [id number] score of 5. Will start patient on on erythromycin eyedrops due to concern for conjunctivitis.
--- NOTE | 2024-10-11 14:22 | XR_ITS ---
Examination: Bilateral femur 4 views Technique one AP lateral right and left femur total 4 views Exam date and time: October 11, 2024 1509 hours INDICATIONS: Patient fell today with injury to the right and left leg, femur pain FINDINGS: No right or left hip fracture or hip dislocation Shaft of the right and left femur appear intact The patient's cooperation is limited in the views are nonstandard IMPRESSION: No acute femur fracture is noted
--- NOTE | 2024-10-11 16:30 | PC.NURSE ---
Patient report given to Luis Miguel at [facility] for Hida scan, per tech will be able to do Hida scan for tomorrow chantal 10/12 between 8-9 am, please keep patient NPO after midnight on 10/11.
[2024-10-11] MEDS: PIPER/TAZO 3.375 GM 3.375 GM/50 ML BAG IV ×2 (16:41→22:05)
[2024-10-11] MEDS: HEPARIN SOD INJ 5000 UNIT/ML VIAL 4000 UNIT IV (16:58)
[2024-10-11] MEDS: Heparin/D5w 25K 250 ML Ivpb 25,000 UNIT/250 ML BAG 9.689 UNIT IV (17:00)
--- NOTE | 2024-10-11 18:24 | PC.NURSE ---
Report given to Shanelle RN, patient transferring to room 367.
[2024-10-11 19:10] LABS: Partial Thromboplastin Time 117.5 Seconds (22.0-36.0)
[2024-10-11 19:16] LABS: Troponin I 1.278 ng/mL (0.0-0.045)
--- NOTE | 2024-10-11 19:29 | PC.NURSE ---
Patient transferred to [facility] Surg Room at approx 1840. Patient vitals taken and report given to TORRES Brar.
[2024-10-11] MEDS: FUROSEMIDE INJ 10 MG/ML 4ML VIAL 40 MG IVP (19:55)
[2024-10-11 23:45] LABS: Partial Thromboplastin Time 83.4 Seconds (22.0-36.0)
[2024-10-12] VITALS (11 sets, daily range): BP systolic 115–131; BP diastolic 80–94; PULSE 78–98; RESP 16–92; TEMP 36.1–36.8; O2SAT 91–96; BMI 27.6; BMI 12.0
[2024-10-12 01:23] LABS: Troponin I 1.199 ng/mL (0.0-0.045)
--- NOTE | 2024-10-12 03:23 | ESCONSULT_ITS ---
RE: JOHNATHON TAM : 1945 DATE OF CONSULTATION: 10/11/2024 CONSULTING PHYSICIANS: Hospitalist and emergency room physician REASON FOR CONSULTATION: Evaluation of atrial fibrillation, rapid rate. CHIEF COMPLAINT: Shortness of breath. HISTORY OF PRESENT ILLNESS: The patient is an 79-year-old lady who is not compliant, not seen a physician for several years, was seen by me for about 4 or 5 years ago last time. She has a known history of chronic atrial fibrillation, hypertension, coronary artery disease. He did not have any angiogram or stents. Patient did not have any followup by me and any primary care physician. She has not seen a doctor for several years about 5 or 6 years. She came to the hospital with chief complaint of severe shortness of breath. She is noncompliant in medical management and evidence of congestive heart failure symptoms with hypoxic respiratory failure. The patient in the emergency room was in atrial fibrillation, faster heart rate, but when I saw her rate controlled well, blood pressure was elevated at 160/100. Initial lab data did show D-dimer was elevated. ABG showed pH 7.46, lactic acid 2.4, calcium 10, total BUN 1.9. Troponin was slightly elevated at 1.6, BNP 434. Chest x-ray showed possible pneumonia and mild heart failure and CT showed evidence of hepatocellular disease anasarca and there was evidence of acute calculus or possible cholecystitis to be ruled out. The patient also has umbilical hernia on the CT examination. CT scan also was negative for pulmonary emboli. Gallbladder ultrasound showed acute calculous cholecystitis as well. The patient remains in atrial fibrillation, rate controlled well, not complaining of any chest pain, mostly shortness of breath and weakness. ALLERGIES: NONE. MEDICATIONS: At home, none. PAST MEDICAL HISTORY: Hypertension, chronic atrial fibrillation. SOCIAL HISTORY: The patient lives with a son. Does not smoke or drink alcoholic beverages. FAMILY HISTORY: Noncontributory. PHYSICAL EXAMINATION: GENERAL: Pleasant, thin-built elderly female, comfortable, alert, alwak, in no acute distress. VITAL SIGNS: Her blood pressure is 115/80. Pulse rate is 72. Respirations 17. Temperature normal. HEAD: Head is atraumatic and normocephalic. EYES: Normal. ENT: Normal. NECK: Supple. No JVD. Carotid pulses felt with no bruits. CHEST: Symmetrical. LUNGS: Clear. HEART: S1, S2. Irregular in atrial fibrillation. ABDOMEN: Abdomen thin and soft. EXTREMITIES: _Mild edema of both feet_. GENITOURINARY AND RECTAL: Not performed. NEUROLOGIC: Normal. DIAGNOSTIC DATA: Electrocardiogram shows atrial fibrillation, nonspecific ST changes. _ and no ischemia or infarction. Troponin was elevated at 1.7, 1.6, but down trending but not up-trending. IMPRESSION/ASSESSMENT: 1. Shortness of breath secondary to acute hypoxic respiratory failure, possibly from congestive heart failure. 2. Atrial fibrillation, chronic persistent, now faster heart rate. 3. Congestive heart failure secondary to possible heart failure with preserved ejection fraction versus valvular heart disease, known history of moderate aortic regurgitation. 4. Possible acute cholecystitis with calculus, but clinically not having any significant gallbladder symptoms. 5. Hypertension, not controlled, not treated. RECOMMENDATIONS: I agree with the medical management. The patient is receiving IV antibiotics after cultures for possible pneumonia. Lasix IV dose was given with improvement of__ symptoms. We will continue with a small dose of Lasix 40 mg daily and possibly beta-ajith, metoprolol 25 mg daily to be started for rate control if the heart rate remains faster than 80. The patient's CHADS-VASc score is more than 3. The patient will require anticoagulation at the time of discharge. The patient should be anticoagulated with IV heparin for now and subsequently we will change it to Eliquis at the time of discharge. Elevated troponin level is possibly type 2 troponin level since the patient does not have any chest pain. If she has episodes of chest pain or shortness of breath persistent, may consider angiogram, but at this time, no plans for any angiogram, but we will continue IV heparin, and we will obtain a cardiac echo for assessment of left ventricular function and wall motion abnormalities. DT: 00:11:25 TT: 03:22:00 Ref: [id number] - TID: [id number] [facility]
[2024-10-12] MEDS: FUROSEMIDE INJ 10 MG/ML 4ML VIAL 40 MG IVP ×2 (05:07→18:53)
[2024-10-12] MEDS: PIPER/TAZO 3.375 GM 3.375 GM/50 ML BAG IV ×3 (05:10→22:24)
[2024-10-12 06:01] LABS: Basophils % (Auto) 0 % (0-2.5); Eosinophils % (Auto) 0 % (0-10); Hematocrit 37.4 % (36.0-46.0); Hemoglobin 12.5 g/dL (12.0-16.0); Immature Granulocytes % (Auto) 1 % (0-0); Immature Granulocytes Auto 0.06 Thou/mm3 (0.00-0.00); Lymphocytes # (Auto) 0.6 Thou/mm3 (1.0-4.8); Lymphocytes % (Auto) 8 % (10-50); Mean Corpuscular HGB Conc 33.4 g/dl (31.0-37.0); Mean Corpuscular Hemoglobin 30.2 pg (25.0-35.0); Mean Corpuscular Volume 90 fL (80-100); Monocytes # (Auto) 0.4 Thou/mm3 (0.0-0.8); Monocytes % (Auto) 6 % (0-12); Neutrophils # (Auto) 6.2 Thou/mm3 (1.8-7.7); Neutrophils % (Auto) 86 % (37-80); Nucleated Red Blood Cell % 0 /100 WBC (0); Platelet Count 192 Thou/mm3 (140-440); RDW Standard Deviation 48.5 fL (36.4-46.3); Red Blood Count 4.14 Miln/mm3 (4.00-5.20); White Blood Count 7.3 Thou/mm3 (3.6-11.0)
[2024-10-12 06:39] LABS: Alanine Aminotransferase 12 U/L (10-49); Albumin, Serum 3.2 gm/dL (3.4-4.8); Albumin/Globulin Ratio 1.5 (1.2-2.2); Alkaline Phosphatase 54 U/L (46-116); Anion Gap 9 (7-16); Aspartate Amino Transferase < 8 U/L (0-34); BUN/Creatinine Ratio 24 Ratio (12-20); Blood Urea Nitrogen 17 mg/dL (9-23); Calcium 9.4 mg/dL (8.3-10.6); Cardiac Risk Estimate 3.3 RATIO (3.7-5.6); Chloride 105 mMol/L (98-107); Cholesterol 150 mg/dL (132-200); Creatinine (Component) 0.7 mg/dL (0.6-1.3); Estimated Creatinine Clearance 60.5 mL/min (>60); Globulin 2.1 gm/dL (2.3-3.5); Glucose 115 mg/dL (74-106); HDL Cholesterol 45 mg/dL (40-60); LDL Cholesterol,Calculated 91 mg/dL (0-130); Magnesium 1.9 mg/dL (1.6-2.6); Osmolality,Calculated 285 (275-295); Phosphorous 3.7 mg/dL (2.4-5.1); Potassium 3.2 mMol/L (3.4-5.1); Sodium 142 mMol/L (136-145); Thyroid Stimulating Hormone 0.57 uIU/mL (0.55-4.78); Total Protein 5.3 gm/dL (5.7-8.2); Triglycerides 70 mg/dL (30-150); eGFR > 60 See Note
[2024-10-12 06:53] LABS: Partial Thromboplastin Time 58.3 Seconds (22.0-36.0)
[2024-10-12] MEDS: SENNA TABLET 1 TAB PO (08:17)
[2024-10-12] MEDS: DOCUSATE SOD 100 MG CAPSULE PO (08:17)
--- NOTE | 2024-10-12 10:23 | ESPR_ITS ---
<Statement entered by Alonso Avila MD - 10/13/24 13:08> Agree with plan and examination finding on the note below. Patient seen and examined at bedside today. Labs and imaging reviewed. Patient care discussed with my attending Dr. Calero and co-resident Dr. Lane. Documentation for date of: 10/12/24 Subjective Subjective Interval history: Patient was seen and examined at bedside this AM. No acute exents overnight. Patient tolerating diet, adequate urine output and mentation is at baseline dementia [oriented to self only] Patient endorses improvement of shortness of breath, has not ambulated since admission. From telemetry review patient alternated between A-fib and sinus arrhythmia overnight with rates 90's-100s Patient has a fluid balance of Net negative 4662 cc in the past 24 hours. Currently on IV diuresis with Lasix 40 mg IV BID K 3.2 and Mg 1.9. Repleted with KCl 40 mEq p.o. x 1, KCl 40 mEq IV x 1 and magnesium sulfate 1 g IV x 1 Exam Vital Signs Temp Pulse Resp BP Pulse Ox O2 Del Method O2 Flow Rate 98 F 87 18 118/80 93 L Nasal Cannula 3 10/12/24 08:00 10/12/24 08:00 10/12/24 08:00 10/12/24 08:00 10/12/24 08:00 10/12/24 08:00 10/12/24 08:00 Narrative Exam Constitutional Alert, oriented x 1 [self] and comfortable. Elderly female on room air with multiple bruises on her arms and legs HEENT Vision grossly intact. Patent nares. Trachea midline Respiratory Chest normal on inspection and poor inspiratory effort, reduced air entry and crackles at bases Cardiovascular S1 and S2 audible, irregularly, irregular pulse. No murmurs carotid bruit. No gross JVD. Abdominal Soft, obese and non tender to palpation in all quadrants. BS + Genitourinary No bladder tenderness, no flank pain. Normal to palpation Musculoskeletal Extremities tone within normal limits. 3+ pitting lower extremity edema up to knees bilaterally Neurological CN II - XII grossly intact. Extremity motor and sensation grossly intact. Skin Warm, dry and intact. No apparent lesions. Psychiatric Patient has good affect, is cooperative Objective Labs 10/12/24 04:58 10/12/24 04:58 Labs: Laboratory Results - last 24 hr 10/11/24 10/11/24 10/11/24 13:09 17:57 23:06 WBC RBC Hgb Hct MCV MCH MCHC RDW Std Deviation Plt Count Neut % (Auto) Lymph % (Auto) [place] % (Auto) Eos % (Auto) Baso % (Auto) Neut # (Auto) Lymph # (Auto) [place] # (Auto) Eos # (Auto) Baso # (Auto) Immature Gran # (Auto) Absolute Nucleated RBC Immature Gran % Nucleated RBC % APTT 117.5 H* D 83.4 H D Sodium Potassium Chloride Carbon Dioxide Anion Gap BUN Creatinine Estim Creat Clear Calc eGFR BUN/Creatinine Ratio Glucose Calculated Osmolality Calcium Corrected Calcium Phosphorus Magnesium Total Bilirubin AST ALT Alkaline Phosphatase Troponin I 1.608 H* 1.278 H* D 1.199 H* Total Protein Albumin Globulin Albumin/Globulin Ratio Triglycerides Cholesterol LDL Cholesterol, Calc HDL Cholesterol Cholesterol/HDL Ratio TSH 10/12/24 10/12/24 04:58 05:48 WBC 7.3 RBC 4.14 Hgb 12.5 D Hct 37.4 MCV 90 MCH 30.2 MCHC 33.4 RDW Std Deviation 48.5 H Plt Count 192 Neut % (Auto) 86 H Lymph % (Auto) 8 L [place] % (Auto) 6 Eos % (Auto) 0 Baso % (Auto) 0 Neut # (Auto) 6.2 Lymph # (Auto) 0.6 L [place] # (Auto) 0.4 Eos # (Auto) 0.0 Baso # (Auto) 0.0 Immature Gran # (Auto) 0.06 H Absolute Nucleated RBC 0.00 Immature Gran % 1 H Nucleated RBC % 0 APTT 58.3 H D Sodium 142 Potassium 3.2 L Chloride 105 Carbon Dioxide 28.0 Anion Gap 9 BUN 17 Creatinine 0.7 Estim Creat Clear Calc 60.5 L eGFR > 60 BUN/Creatinine Ratio 24 H Glucose 115 H Calculated Osmolality 285 Calcium 9.4 Corrected Calcium 10.0 Phosphorus 3.7 Magnesium 1.9 Total Bilirubin 1.0 D AST < 8 ALT 12 Alkaline Phosphatase 54 D Troponin I Total Protein 5.3 L Albumin 3.2 L D Globulin 2.1 L Albumin/Globulin Ratio 1.5 Triglycerides 70 Cholesterol 150 LDL Cholesterol, Calc 91 HDL Cholesterol 45 Cholesterol/HDL Ratio 3.3 L TSH 0.57 D ABG Interpretation ABG results: 10/11/24 04:23 ABG pH 7.46 H ABG pCO2 35 ABG pO2 87 ABG HCO3 25 ABG O2 Saturation 98 ABG Base Excess 1 Quality Measures Quality Measures none Advance care planning discussed with:: patient and child Assessment & Plan Assessment Current Active Medications: Generic Name Dose Route Start Last Admin Trade Name Freq PRN Reason Stop Dose Admin Acetaminophen 650 mg 10/11/24 11:44 Acetaminophen 325 Mg Tablet PO 11/10/24 11:43 Q6H PRN Fever >101.5 Acetaminophen 650 mg 10/11/24 11:44 Acetaminophen 325 Mg Tablet PO 11/10/24 11:43 Q6H PRN PAIN SCALE 1-3 (mild Docusate Sodium 100 mg 10/12/24 09:00 10/12/24 08:17 Docusate Sod 100 Mg Capsule PO 11/11/24 08:59 100 mg QDAY CRYSTAL Administration Protocol Furosemide 40 mg 10/11/24 18:00 10/12/24 05:07 Furosemide Inj 10 Mg/Ml 4ml Vial IVP 11/10/24 17:59 40 mg BIDD CRYSTAL Administration Piperacillin/Tazobactam/Dextrose 3.375 gm in 50 mls @ 12.5 mls/hr 10/11/24 22:00 10/12/24 05:10 Zosyn IV 10/18/24 21:59 12.5 mls/hr Q8HR CRYSTAL Administration Heparin Sodium/Dextrose 25,000 unit in 250 mls @ 9.689 mls/hr 10/11/24 14:00 10/11/24 23:58 Heparin In D5w Ivpb IV 10/25/24 13:59 10 units/kg/hr .Q24H CRYSTAL 8.074 mls/hr Titration Protocol 12 UNITS/KG/HR Potassium Chloride 10 meq in 100 mls @ 100 mls/hr 10/12/24 08:12 Kcl Ivpb IV 10/12/24 12:11 Q1H CRYSTAL Ondansetron HCl 4 mg 10/11/24 11:44 Ondansetron Inj 2 Mg/Ml Inj 2 Ml IV 11/10/24 11:43 Q6H PRN NAUSEA OR VOMITING Protocol Sennosides 1 tab 10/12/24 09:00 10/12/24 08:17 Senna Tablet PO 11/11/24 08:59 1 tab QDAY CRYSTAL Administration Protocol Plan 79-year-old female with past medical history of atrial fibrillation, hypertension, coronary artery disease, remote hx of anticoagulation with warfarin presents to the ED due to shortness of breath. Per this time patient started developing shortness of breath 1 day ago. Shortness of breath on exertion and at rest. Patient also has been having leg swelling for the past 2 weeks that has been progressing. Patient also complaining of right upper extremity pain. 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 Admitted for acute hypoxic respiratory failure secondary to CHF exacerbation. # Acute decompensated heart failure exacerbation #Pulmonary hypertension #Left-sided pneumonia #Concern for PE-ruled out Patient presented to the ED with shortness of breath and mild bilateral lower extremity edema On examination patient noted to have bilateral crackles Chest x-ray shows prominent CHF pattern Patient was having tenderness in the bilateral lower extremities Venous ultrasound of bilateral lower extremities negative for DVT CTA chest negative for pulmonary embolism From telemetry review patient alternated between A-fib and sinus arrhythmia overnight with rates 90's-100s Patient has a fluid balance of Net negative 4662 cc in the past 24 hours. Currently on IV diuresis with Lasix 40 mg IV BID K 3.2 and Mg 1.9. Repleted with KCl 40 mEq p.o. x 1, KCl 40 mEq IV x 1 and magnesium sulfate 1 g IV x 1 Blood cultures showed no bacterial growth x 1 day Plan: ? 2G sodium restricted Diet ? Continue Lasix 40 mg twice daily ? Strict I's and O's ? Fluid restriction 1500 mL ? Daily weights ? IV Zosyn 3.375 g IV every 8 hourly to cover for possible cholecystitis and pneumonia started on [10/11? ? Pending echo ? Cardiology, Dr. Kaden Kraus consulted and closely following the case. Appreciate recommendations #Atrial fibrillation?long-term, persistent EKG showed atrial fibrillation [id number]: 5 Plan: ? Continue heparin infusion for anticoagulation ? Will start apixaban upon discharge as per cardiology recommendations. #Hypertension Patient currently normotensive Patient does not take any medications for more than 7 years Plan: ? Patient currently on IV diuresis with Lasix 40 Mg IV twice daily #Concern for acute calculus cholecystitis?low suspicion Patient has tenderness on the abdomen Gallbladder ultrasound showed acute cholecystitis Spoke to Dr. Barrera has very low suspicion for acute cholecystitis Plan: ? Awaiting MRCP read #Concern for malnutrition ? Dietitian consulted ? social service worker Consulted #Multiple bruises Patient has multiple bruises across her body Femur and pelvis x-ray negative for any fracture Health maintenance: Disposition: IV diuresis Diet: Cardiac, dysphagia 2. 1500 cc fluid restriction Lines: pIVs GI Prophylaxis: None Thrombo Prophylaxis: Heparin infusion Code status: FULL CODE Plan of care discussed with Attending Dr. Calero and PGY2 Dr. Kendrick Lane MD PGY 1 Attending Provider Attestation/Addendum 79-year-old female with atrial fibrillation. The patient was admitted for acute hypoxic respiratory failure secondary to CHF and pneumonia. The patient has dementia. She has been lost to follow-up. She has not been taking her medications regularly. The patient was started on heparin drip She is receiving diuretic treatment. She will continue antibiotic for pneumonia.
[2024-10-12] MEDS: Magnesium Sulfate 1 gm Ivpb 1 GM/100 ML BAG IV (11:15)
[2024-10-12] MEDS: POTASSIUM CHL 10 mEq IVPB 10 MEQ/100 ML BAG 90 MEQ IV ×4 (11:16→14:56)
[2024-10-12] MEDS: POTASSIUM CHLORIDE 20 mEq TABCR 40 MEQ PO (11:16)
--- NOTE | 2024-10-12 14:44 | PC.NURSE ---
Patient was put on avasure no. 3 around 14:38PM for safety purposes. Patient is confused, demented and pulled her IV this morning.
--- NOTE | 2024-10-12 16:50 | PC.NURSE ---
Patient went to [facility] for HIDA scan around 9:30AM, heparin drip was paused, MD aware.
--- NOTE | 2024-10-12 16:53 | PC.NURSE ---
Patient back to med surg unit from [facility] after HIDA scan via gurney around 11AM.
--- NOTE | 2024-10-12 18:57 | PD.SURCONS ---
HPI Consult details Consult date: 10/11/24 Reason for consultation narrative: Patient was seen on consultation for gallstones History of present illness: Patient was admitted with some vague symptoms of difficulty in breathing and some abdominal pain. She has not had any nausea or vomiting. Ultrasound showed gallstones and therefore surgical consultation was obtained. Patient's other medical problem consisted of congestive heart failure with a severe bilateral edema. Past Medical History Past Medical History CARDIAC: Positive Cardiac Disorders (CHF); Negative Congestive Heart Failure RESPIRATORY: Negative Chronic Obstructive Pulmonary Disease (COPD) or Asthma GENITOURINARY: Negative Renal Disease ENDOCRINE: Negative Diabetes Mellitus Type 1 or Diabetes Mellitus Type 2 HEMATOLOGIC: Negative Sickle Cell Disease Social History SMOKING STATUS: Never smoker Meds Home Medications and Allergies Home Medications ?Medication ?Instructions ?Recorded ?Confirmed ?Type Spironolact/Hydrochlorothiazid ##0 03/08/13 History (Spironolact/Hctz Tab) bumetanide 2 mg tablet ##0 03/08/13 History digoxin 125 mcg (0.125 mg) tablet QDAY ##0 03/08/13 History furosemide 40 mg tablet ##0 03/08/13 History potassium 99 mg tablet BID ##0 03/08/13 History warfarin 2 mg tablet (Coumadin) ##0 03/08/13 History Allergies Allergy/AdvReac Type Severity Reaction Status Date / Time No Known Allergies Allergy Unverified 10/11/24 11:51 Exam Vital Signs Temp Pulse Resp BP Pulse Ox O2 Del Method O2 Flow Rate 98.2 F 98 18 116/81 91 L Room Air 3 10/12/24 16:00 10/12/24 18:53 10/12/24 16:00 10/12/24 18:53 10/12/24 16:00 10/12/24 16:00 10/12/24 12:00 Narrative Exam Physical examination revealed 79-year-old female who speaks some Kinyarwanda. Constitutional Constitutional: mild distress Routine Abdominal Exam Comments: Examination abdomen showed a palpable hernia around the umbilicus. It is difficult to evaluate this hernia because patient is not supine position and would not be able to stand up. She does not have any tenderness in the right upper quadrant Routine Rectal Exam Comments: Deferred Routine Exam Comments: Deferred Routine Extremities Exam Comments: Patient's lower extremities revealed considerable amount of edema on both sides. Results Results: Laboratory Laboratory Narrative: Patient's laboratory work is within normal limits. Results: Imaging Imaging narrative: Patient had ultrasound of the gallbladder which showed stones. However the HIDA scan showed visualization of the gallbladder thus ruling out acute cholecystitis. However the ejection fraction is only 23% Assessment & Plan Additional Assessment Additional comments: Impression: Congestive heart failure with atrial fibrillation Respiratory failure Cholelithiasis without any evidence of cholecystitis Plan Plan: The patient does not require surgical intervention. She has considerable medical problems that need to be treated including the congestive heart failure severe bilateral leg edema. The HIDA scan which shows visualization of the gallbladder rules out acute cholecystitis. The ejection fraction shows poor functioning of the gallbladder but it is not significant to cause any symptoms nor the need for. Cholecystectomy. Thank you very much
[2024-10-12] MEDS: Heparin/D5w 25K 250 ML Ivpb 25,000 UNIT/250 ML BAG 8.074 UNIT IV (22:25)
[2024-10-13] VITALS (9 sets, daily range): BP systolic 101–124; BP diastolic 70–87; PULSE 70–97; RESP 16–18; TEMP 36.1–36.9; O2SAT 90–98
--- NOTE | 2024-10-13 02:13 | ESPR_ITS ---
Consultation evaluation RE: JOHNATHON TAM : 1945 DATE OF SERVICE: 10/12/2024 SUBJECTIVE: The patient is seen for cardiac . She is an 79-year-old lady with history of atrial fibrillation. She came to the hospital with multiple symptoms of shortness of breath, weakness, some abdominal pain. No nausea or vomiting. Ultrasound did show gallstones. The patient did not complain of any chest pain or shortness of breath today. She initially came with congestive heart failure with bilateral edema and shortness of breath, improved with IV diuretic therapy. She was in atrial fibrillation, rapid heart rate, now controlled well. She has known history of chronic atrial fibrillation. ALLERGIES: NONE. MEDICATIONS: Reviewed. The patient is receiving antibiotic erythromycin, Lasix 40 mg twice daily with improvement of symptoms and she is also on antibiotic therapy. Continue IV heparin drip and Zosyn IV broad spectrum antibiotic. Not offering any complaints. She is much more alert and awake today than yesterday and than when showed in the emergency room. Lab data did show white count is normal at 7000. Chemistry panel showed normal creatinine 0.7, potassium 3.2. She did have a troponin elevation of 1.6, 1.2, 1.1, trending downwards. She never had any chest pain on admission, mostly shortness of breath. Chest x-ray showed some pulmonary congestion and she also had gallstones on ultrasound and gallbladder nuclear scan. HIDA scan showed abnormal gallbladder. Ejection fraction 23%. Her EKG showed atrial fibrillation, nonspecific ST changes, poor R-wave progression in precordial leads. Cardiac echo was ordered. OBJECTIVE: General: Alert, awake, in no acute distress. Vital Signs: Blood pressure 116/80, pulse rate is 18. Temperature is normal. Head: Atraumatic. Neck: Supple. No JVD. Chest: Chest symmetrical. Lungs: Decreased breath sounds at bases. Heart: S1, S1 regular. S4 gallop heard. Abdomen: Thin and soft. Extremities: Mild edema. IMPRESSION: 1. Atrial fibrillation with rapid ventricular response, now controlled. 2. Congestive heart failure with preserved ejection fraction. 3. Respiratory failure improved. 4. Cholelithiasis without any acute cholecystitis. RECOMMENDATIONS: Continue medical management. Probably no need for surgery at this time and we will continue the diuretic therapy. Review cardiac workup on completion. The patient's heart rate is controlled well, but the heart rate goes faster. We will add a low-dose beta-ajith as tolerated. DT: 00:03:43 TT: 02:11:00 Ref: [id number] - TID: [id number] MTDD
[2024-10-13] MEDS: FUROSEMIDE INJ 10 MG/ML 4ML VIAL 40 MG IVP (05:14)
[2024-10-13] MEDS: PIPER/TAZO 3.375 GM 3.375 GM/50 ML BAG IV ×3 (05:15→22:13)
[2024-10-13 05:46] LABS: Basophils % (Auto) 0 % (0-2.5); Eosinophils # (Auto) 0.2 Thou/mm3 (0.0-0.5); Eosinophils % (Auto) 2 % (0-10); Hematocrit 37.5 % (36.0-46.0); Hemoglobin 12.4 g/dL (12.0-16.0); Immature Granulocytes % (Auto) 1 % (0-0); Immature Granulocytes Auto 0.05 Thou/mm3 (0.00-0.00); Lymphocytes % (Auto) 12 % (10-50); Mean Corpuscular HGB Conc 33.1 g/dl (31.0-37.0); Mean Corpuscular Hemoglobin 30.5 pg (25.0-35.0); Mean Corpuscular Volume 92 fL (80-100); Monocytes % (Auto) 13 % (0-12); Neutrophils # (Auto) 5.9 Thou/mm3 (1.8-7.7); Neutrophils % (Auto) 72 % (37-80); Nucleated Red Blood Cell % 0 /100 WBC (0); Platelet Count 223 Thou/mm3 (140-440); RDW Standard Deviation 48.6 fL (36.4-46.3); Red Blood Count 4.07 Miln/mm3 (4.00-5.20); White Blood Count 8.2 Thou/mm3 (3.6-11.0)
[2024-10-13 05:52] LABS: INR 1.2 (0.9-1.3); Partial Thromboplastin Time 48.5 Seconds (22.0-36.0); Prothrombin Time 12.6 Seconds (9.0-12.2)
[2024-10-13 06:05] LABS: Alanine Aminotransferase 14 U/L (10-49); Albumin, Serum 3.2 gm/dL (3.4-4.8); Albumin/Globulin Ratio 1.5 (1.2-2.2); Alkaline Phosphatase 58 U/L (46-116); Anion Gap 7 (7-16); Aspartate Amino Transferase < 8 U/L (0-34); BUN/Creatinine Ratio 23 Ratio (12-20); Bilirubin,Total 0.9 mg/dL (0.3-1.2); Blood Urea Nitrogen 18 mg/dL (9-23); Calcium 9.4 mg/dL (8.3-10.6); Carbon Dioxide 33.5 mMol/L (20.0-31.0); Chloride 101 mMol/L (98-107); Creatinine (Component) 0.8 mg/dL (0.6-1.3); Estimated Creatinine Clearance 51.7 mL/min (>60); Globulin 2.1 gm/dL (2.3-3.5); Glucose 93 mg/dL (74-106); Osmolality,Calculated 283 (275-295); Phosphorous 2.7 mg/dL (2.4-5.1); Potassium 3.6 mMol/L (3.4-5.1); Sodium 141 mMol/L (136-145); Total Protein 5.3 gm/dL (5.7-8.2); eGFR > 60 See Note
--- NOTE | 2024-10-13 08:51 | XR_ITS ---
Examination: Pulmonary perfusion ventilatory scan Exam date and time: October 14, 2024 1322 hours INDICATIONS: Acute heart failure, atrial fibrillation, shortness of breath this week, history anticoagulation TECHNIQUE AND FINDINGS: Perfusion study 4.0 mCi technetium 99m macroaggregated albumin intravenous Ventilatory scan 40.6 mCi technetium 99m DTPA aerosol Anterior posterior right and left lateral bilateral oblique matching ventilation/perfusion images Severe ventilatory abnormalities seen with heart failure No pulmonary perfusion mismatch IMPRESSION: Low probability for pulmonary artery emboli
--- NOTE | 2024-10-13 10:34 | XR_ITS ---
Examination: CT brain head without contrast. 2-D sagittal coronal reconstructions Date and time of exam:October 13, 2024 1045 hrs. Comparison October 11, 2024 Indications: Stroke alert, onset left-sided body weakness focal neurologic deficit today CTDI: vol (mGy):47.9 DLP: (mGycm):981 Technique: Multiple CT axial sections of the brain have been obtained, 5 mm slice thickness. Contrast has not been administered. 2-D sagittal, coronal reconstructions have been obtained Low dose protocols were performed. One or more of the following dose reduction techniques were used; automated exposure control, adjustment of the mA and/or KV according to patient size, use of iterative reconstruction technique. Findings: No significant ventricular enlargement. 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 No mass effect or midline shift Basal cisterns are not remarkable. Fourth ventricle is midline. Cranial vault intact. Impression: No interval acute hemorrhage, mass effect or midline shift
--- NOTE | 2024-10-13 11:18 | PD.TNEURO ---
Tele Neuro Consultation Consultation Date 10/13/24 Most Recent Vital Signs Last Vital Signs Temp 97.4 F 10/13/24 08:00 Pulse 80 10/13/24 08:00 Resp 16 10/13/24 08:00 BP 114/79 10/13/24 08:00 Pulse Ox 95 10/13/24 08:00 O2 Del Method Nasal Cannula 10/13/24 08:00 O2 Flow Rate 1 10/13/24 08:00 Laboratory-Coagulation Panel PT 12.6 Seconds (9.0-12.2) H 10/13/24 04:36 INR 1.2 (0.9-1.3) 10/13/24 04:36 APTT 48.5 Seconds (22.0-36.0) H 10/13/24 04:36 D-Dimer 3230 ng/mL (<600) H 10/11/24 04:24 Consultation Narrative [facility] Patient Name:???Ina Macias Date of :???1945 Identification Number:??? Date of Service:???10/13/2024 10:43:08 Diagnosis:?G93.49 - Encephalopathy Multifactorial Impression: ?Decreased responsiveness in the setting of hypoxic respiratory failure due to CHF exacerbation superimposed on baseline dementia. There are no focal findings on exam to suggest acute stroke; presentation is most consistent with multifactorial encephalopathy. ?Recommendations: ?- Continued metabolic/infectious/cardiac/respiratory management per primary team ?- If there is concern for continued decreased responsiveness despite improvement in systemic factors, could consider EEG and MRI brain ?- Reasonable to continue heparin gtt at this time given low suspicion for neurovascular etiology Our recommendations are outlined below. Recommendations: ? Stroke/Telemetry Floor ? Neuro Checks ? Bedside Swallow Eval ? DVT Prophylaxis ? IV Fluids, Normal Saline ? Head of Bed 30 Degrees ? Euglycemia and Avoid Hyperthermia (PRN Acetaminophen) Sign Out: ? Discussed with Primary Attending ? Discussed with Rapid Response Team Advanced Imaging: Advanced Imaging Deferred because: Stroke not suspected with clinical presentation and exam Metrics: Last Known Well: 10/13/2024 10:15:00 Dispatch Time: 10/13/2024 10:43:08 Initial Response Time: 10/13/2024 10:45:54Symptoms: unresponsive. Initial patient interaction: 10/13/2024 10:51:24 NIHSS Assessment Completed: 10/13/2024 10:58:00Patient is not a candidate for Thrombolytic. Thrombolytic Medical Decision: 10/13/2024 10:59:00Patient was not deemed candidate for Thrombolytic because of following reasons: Acute bleeding diathesis (increased PTT> 40, PT > 15 OR INR => 1.7). . I personally Reviewed the CT Head and it Showed no acute hemorrhage Primary Provider Notified of Diagnostic Impression and Management Plan on: 10/13/2024 11:14:26 Spoke With: Dr. Calero Able to Reach 10/13/2024 11:14:26 History of Present Illness:Patient is a 79 year old Female. Inpatient stroke alert was called for symptoms of unresponsive. Patient is an 79 year old woman admitted 10/11 with worsening dyspnea, bilateral leg swelling, and right arm pain. She was found to have CHF exacerbation and pneumonia. At baseline working with PT yesterday she was weak and unable to walk unassisted. She also has a baseline history of dementia, oriented to self only, but does normally speak. Per her RN, she has been sleepy this morning but was able to be awakened as of when she was seen at 10:15am. Shortly after that she was seen by her physicians and was found to be unarousable. No lateralized weakness, no facial droop, no gaze deviation. Past Medical History: ?Hypertension ?Atrial Fibrillation ?Coronary Artery Disease ?Dementia/MCI ?There is no history of Diabetes Mellitus Other PMH:? CHF Medications: Anticoagulant use:??Yes?warfarin at home, currently on heparin gtt with last PTT 48.5 No Antiplatelet use Reviewed EMR for current medications Allergies:? NKDA Social History: Smoking: No Alcohol Use: No Drug Use: No Family History: There is no family history of premature cerebrovascular disease pertinent to this consultation ROS : 14 Points Review of Systems was performed and was negative except mentioned in HPI. Past Surgical History: There Is No Surgical History Contributory To Today?s Visit NIHSS may not be reliable due to: encephalopathic, minimally participatory Examination: BP(126/65),?Pulse(76),?Blood Glucose(106) 1A: Level of Consciousness - Requires repeated stimulation to arouse?+ 2 1B: Ask Month and Age - Could Not Answer Either Question Correctly?+ 2 1C: Blink Eyes & Squeeze Hands - Performs 1 Task?+ 1 2: Test Horizontal Extraocular Movements - Normal?+ 0 3: Test Visual Montes - No Visual Loss?+ 0 4: Test Facial Palsy (Use Grimace if Obtunded) - Normal symmetry?+ 0 5A: Test Left Arm Motor Drift - No Drift for 10 Seconds?+ 0 5B: Test Right Arm Motor Drift - No Drift for 10 Seconds?+ 0 6A: Test Left Leg Motor Drift - Drift, but doesn't hit bed?+ 1 6B: Test Right Leg Motor Drift - Drift, but doesn't hit bed?+ 1 7: Test Limb Ataxia (FNF/Heel-Haley) - Does Not Understand?+ 0 8: Test Sensation - Normal; No sensory loss?+ 0 9: Test Language/Aphasia - Severe Aphasia: Fragmentary Expression, Inference Needed, Cannot Identify Materials?+ 2 10: Test Dysarthria - Mute/Anarthric?+ 2 11: Test Extinction/Inattention - No abnormality?+ 0 NIHSS Score:?11 NIHSS Free Text :?92% on 1LNC ?Looks to loud voice on both sides, briefly opens eyes to sternal rub but then squeezes them shut again. Holds arms and legs up when lifted by clinical team, reacts to touch in all limbs Pre-Morbid Modified [place] Scale:4 Points = Moderately severe disability; unable to walk and attend to bodily needs without assistance Spoke with :?Dr. Calero This consult was conducted in real time using interactive audio and video technology. Patient was informed of the technology being used for this visit and agreed to proceed. Patient located in hospital and provider located at home/office setting. Patient is being evaluated for possible acute neurologic impairment and high probability of imminent or life-threatening deterioration. I spent total of 35 minutes providing care to this patient, including time for face to face visit via telemedicine, review of medical records, imaging studies and discussion of findings with providers, the patient and/or family. Dr Beth Landa [facility] For Inpatient follow-up with [facility] physician please call [facility] at . As we are not an outpatient service for any post hospital discharge needs please contact the hospital for assistance. If you have any questions for the [facility] physicians or need to reconsult for clinical or diagnostic changes please contact us via [facility] at .
[2024-10-13 11:33] LABS: Base Excess 13 (-3-3); HCO3 39 mEq/L (20-26); Inspired O2, VO2 Liters 2 L/min; O2 Saturation 93 % (91-98); PCO2 52 mmHg (32.0-48.0); PO2 62 mmHg (83-108); pH, Arterial 7.48 (7.35-7.45)
[2024-10-13 11:35] LABS: Allen Test Performed/OK; Puncture Site Right Radial
--- NOTE | 2024-10-13 12:33 | PC.LAC ---
IN SERVICE EDUCATION TEACHER was called in around 10:36 AM for patient being unresponsive. Patient's current vitals are the following: blood sugar-104, BP126/65, TN-76, T- 97.6 F, RR 16, O2 sat 92% at 1LM. Stroke alert was also called in, patient was brought to CT scan and teleneuro assessment was done by Dr. Beth Landa. Per Neuro doctor, no stroke. Patient was brought back to med surg unit around 11:20 AM with vital signs of BP- 117/83, TN-72, T-96.9 F, O2 sat 98% on 1LPM and family at bedside.
--- NOTE | 2024-10-13 13:10 | EVENTNT_ITS ---
Documentation for date of: 10/13/24 Event Note Event Note: 10/13/2024: At around 11:30 AM while examining the patient with the hospitalist team; patient was noted to be somnolent and not arousing to questioning, sternal rub or pain. This was noted to be out of the patient's normal baseline; moreover, nursing was notified and rapid response was initiated. At this time, during the rapid, patient's bedside glucose was 106, pressure 126/85, heart rate 75 and SpO2 99% on room air. Patient was again attempted to arouse and she began to move her extremities and react to noxious stimuli. CT head and stroke protocol were initiated; moreover, CT head did not show any acute hemorrhagic p rocess. Teleneurology consulted and their recommendations are as follows, if patient continues to have decreased responsiveness despite improvement in systemic factors, could consider EEG and MRI brain and to continue heparin gtt at this time given low suspicion for neurovascular etiology. Dennis Langford, PGY-1
--- NOTE | 2024-10-13 13:11 | PD.RESPRO ---
Documentation for date of: 10/13/24 Subjective Subjective Interval history: 10/13/2024: No acute overnight events to report. This morning (10/13) while examining the patient rapid response and stroke alert were initiated as the patient was not as responsive as outlined in event note. CT head did not show any acute process; moreover, teleneurology was consulted and the recommendation was to continue current management and if the patient continued to be somnolent to further workup with MRI/EEG. Patient was restarted on heparin drip. On labs, patient also has metabolic alkalosis with incomplete, respiratory compensation as outlined by Spicer formula. At this time we will hold IV diuretics and reassess with labs tomorrow (10/14). Exam Vital Signs Temp Pulse Resp BP Pulse Ox O2 Del Method O2 Flow Rate 97.4 F 80 16 114/79 95 Nasal Cannula 1 10/13/24 08:00 10/13/24 08:00 10/13/24 08:00 10/13/24 08:00 10/13/24 08:00 10/13/24 08:00 10/13/24 08:00 Narrative Exam Physical Exam: GENERAL: Somnolent, arousable to noxious stimuli, appears stated age HEENT: NC/AT. Moist mucosa. PERRLA. CARDIO: irregularly irregular, no obvious murmurs, no JVD. PULM: No coughing or visible SOB. Lungs CTA B/L. Crackles noted on upper lung sparks bilaterally GI: Abdomen soft, NT/ND, +BS. URO/HEAD GOLF PROFESSIONAL: Extensive vaginal erythema with white discharge SKIN/MSK/EXT: +2 pitting edema b/l lower extremities. No wounds/discoloration/rashes/amputations noted. +Pedal pulses present B/L. NEURO: Oriented x0, unable to assess CN, patient able to move extremities x4; keeps extremities up against gravity Objective Labs 10/15/24 04:50 10/15/24 04:50 Labs: Laboratory Results - last 24 hr 10/13/24 10/13/24 04:36 11:24 WBC 8.2 RBC 4.07 Hgb 12.4 Hct 37.5 MCV 92 MCH 30.5 MCHC 33.1 RDW Std Deviation 48.6 H Plt Count 223 D Neut % (Auto) 72 Lymph % (Auto) 12 [place] % (Auto) 13 H Eos % (Auto) 2 Baso % (Auto) 0 Neut # (Auto) 5.9 Lymph # (Auto) 1.0 [place] # (Auto) 1.0 H Eos # (Auto) 0.2 Baso # (Auto) 0.0 Immature Gran # (Auto) 0.05 H Absolute Nucleated RBC 0.00 Immature Gran % 1 H Nucleated RBC % 0 PT 12.6 H INR 1.2 APTT 48.5 H Puncture Site Right Radial ABG pH 7.48 H ABG pCO2 52 H D ABG pO2 62 L D ABG HCO3 39 H ABG O2 Saturation 93 ABG Base Excess 13 H Oxygen Liter Flow 2 Sodium 141 Potassium 3.6 Chloride 101 Carbon Dioxide 33.5 H Anion Gap 7 BUN 18 Creatinine 0.8 Estim Creat Clear Calc 51.7 L eGFR > 60 BUN/Creatinine Ratio 23 H Glucose 93 Calculated Osmolality 283 Calcium 9.4 Corrected Calcium 10.0 Phosphorus 2.7 Magnesium 2.0 Total Bilirubin 0.9 AST < 8 ALT 14 Alkaline Phosphatase 58 Total Protein 5.3 L Albumin 3.2 L Globulin 2.1 L Albumin/Globulin Ratio 1.5 ABG Interpretation ABG results: 10/11/24 10/13/24 04:23 11:24 ABG pH 7.46 H 7.48 H ABG pCO2 35 52 H D ABG pO2 87 62 L D ABG HCO3 25 39 H ABG O2 Saturation 98 93 ABG Base Excess 1 13 H Quality Measures Quality Measures none Advance care planning discussed with:: child Assessment & Plan Assessment Current Active Medications: Generic Name Dose Route Start Last Admin Trade Name Freq PRN Reason Stop Dose Admin Acetaminophen 650 mg 10/11/24 11:44 Acetaminophen 325 Mg Tablet PO 11/10/24 11:43 Q6H PRN Fever >101.5 Acetaminophen 650 mg 10/11/24 11:44 Acetaminophen 325 Mg Tablet PO 11/10/24 11:43 Q6H PRN PAIN SCALE 1-3 (mild Docusate Sodium 100 mg 10/12/24 09:00 10/12/24 08:17 Docusate Sod 100 Mg Capsule PO 11/11/24 08:59 100 mg QDAY CRYSTAL Administration Protocol Furosemide 40 mg 10/11/24 18:00 10/13/24 05:14 Furosemide Inj 10 Mg/Ml 4ml Vial IVP 11/10/24 17:59 40 mg BIDD CRYSTAL Administration Piperacillin/Tazobactam/Dextrose 3.375 gm in 50 mls @ 12.5 mls/hr 10/11/24 22:00 10/13/24 05:15 Zosyn IV 10/18/24 21:59 12.5 mls/hr Q8HR CRYSTAL Administration Heparin Sodium/Dextrose 25,000 unit in 250 mls @ 9.689 mls/hr 10/11/24 14:00 10/13/24 06:57 Heparin In D5w Ivpb IV 10/25/24 13:59 12 units/kg/hr .Q24H CRYSTAL 9.689 mls/hr Titration Protocol 12 UNITS/KG/HR Ondansetron HCl 4 mg 10/11/24 11:44 Ondansetron Inj 2 Mg/Ml Inj 2 Ml IV 11/10/24 11:43 Q6H PRN NAUSEA OR VOMITING Protocol Pantoprazole Sodium 40 mg 10/13/24 09:00 Pantoprazole 40 Mg Tablet PO 11/12/24 08:59 QDAY CRYSTAL Sennosides 1 tab 10/12/24 09:00 10/12/24 08:17 Senna Tablet PO 11/11/24 08:59 1 tab QDAY CRYSTAL Administration Protocol Plan 79-year-old female with past medical history of atrial fibrillation, hypertension, coronary artery disease, remote hx of anticoagulation with warfarin presented due to shortness of breath, admitted for acute hypoxic respiratory failure secondary to CHF exacerbation along with superimposed pneumonia treated with IV antibiotics and found to have severe pulmonary arterial hypertension on echocardiography. #Acute decompensated heart failure exacerbation #Pulmonary arterial hypertension #Left-sided pneumonia #Concern for PE-ruled out On examination patient noted to have bilateral crackles and +2 pitting bilateral lower extremity edema Chest x-ray shows prominent CHF pattern Venous ultrasound of bilateral lower extremities negative for DVT CTA chest negative for pulmonary embolism Patient has a fluid balance of net negative 4.8L in the past 24 hours. Blood cultures showed no bacterial growth x 2 days ECHO 10/11/2024 shows: Normal left ventricular size. Estimated EF 55%. RV is normal in size. RV systolic function is moderately decreased. Estimated RVSP, 83 mmHg. RAP 15. Severe biatrial dilation. Severe mitral annulus calcification with mild stenosis. Moderate MR and TR. Aortic valve sclerosis with mild to moderate aortic regurgitation. Less than 50% respiratory change in dimension of the inferior vena cava abnormal. Pulmonary arterial hypertension likely group 2 versus group 4: Patient does not have any history of pulmonary disease. Plan: VQ scan ordered to rule out group 4 pulmonary arterial hypertension Hold Lasix 40 mg twice daily Strict I's and O's Fluid restriction 1500 mL Daily weights IV Zosyn 3.375 g IV every 8 hourly to cover for possible cholecystitis and pneumonia, day 3 Cardiology, Dr. Kaden Kraus consulted and closely following the case. Appreciate recommendations #Acute encephalopathy Likely secondary to acute hypoxic respiratory failure due to decompensated heart failure versus pulmonary arterial hypertension Rapid response and stroke protocol initiated CT head was negative for any acute process Per nurse, the patient is more responsive when family is bedside; however, on reexamination the patient has difficulty following commands Plan: Teleneurology consulted, appreciate recommendations Will consider obtaining MRI/EEG the patient remained somnolent Holding p.o. medications Head of bed greater than 30 Euglycemic Speech eval recommends dysphagia 2 diet, thick liquids PT eval reassess the patient #Metabolic alkalosis 2/2 likely secondary to IV diuretics, contraction alkalosis versus endocrine disorder (hyperaldosteronism, Frank's) renal loss Patient developed new metabolic alkalosis with a bicarb of 33.5 on CMP ABG on 10/13 shows pH 7.48, pCO2 52, pO2 61 bicarb of 39 Patient's BUN and creatinine mildly elevated from previous labs; patient still appears volume overloaded on clinical exam Plan: Holding IV diuretics for 1 day and will reassess with morning labs #Atrial fibrillation?long-term, persistent EKG showed atrial fibrillation [id number]: 5 Plan: Continue heparin infusion for anticoagulation Will start apixaban upon discharge as per cardiology recommendations. 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 Barrera has very low suspicion for acute cholecystitis Nuclear medicine HIDA scan shows abnormal gallbladder ejection fraction, 23%, normal greater than 35% Plan: Dr. Barrera, general surgery, consulted appreciate recommendations #Failure to thrive #Concern for malnutrition #Multiple bruises Patient has multiple bruises across her body Femur and pelvis x-ray negative for any fracture Plan: Follow dietitian and social worker assistant recommendations Hospital Management: Bowel: Senna Diet: Cardiac, dysphagia 2; 1500cc fluid restriction Lines: PIVs GI Prophylaxis: None DVT Prophylaxis: Heparin infusion Code: Full Patient seen and examined with attending Dr. Calero and senior resident Dr. Kendrick Langford, PGY-1 Senior resident attestation: Patient is an 79-year-old female, unkempt appearance, accompanied by son who provides most of the H&P as patient did not volunteer much history, but did answer simple questions appropriately. Per son patient has not taking any medications or kept up with any doctors appointments for the past 5 or 6 years, since he moved in with her. Prior to that he reported that patient used to have her medications in a pillbox and will take them regularly, but then she stopped taking medications. Chart review shows at 1 time patient was anticoagulated with warfarin, he was taking digoxin. Son is not aware if patient has any cardiac conditions, prior history of A-fib or cardiac murmur. He brought her to be checked out in the ER because of bilateral lower extremity swelling and edema, which started 2 weeks ago. Denied chest pain denied fever, did report shortness of breath. Per son, patient was ambulatory 2 weeks prior to presentation. #Acute encephalopathy, likely delirium #Concern for Stroke -ruled out repeat CT head ordered following altered mental status , acute hemorrhage ruled out, pt had complete resolution of delirium few hrs later, no focal neurological deficits were noted , likely acute encephalopathy in the setting fo reduced Pao2 due to severe PAH. will continue to monitor, #Concern for acute on chronic CHF #Acute hypoxic respiratory failure #Pulmonary arterial hypertension on CTPA #NSTEMI, likely type II #History of atrial fibrillation?rate controlled ? On 4 L nasal cannula oxygen, saturating well, cardiomegaly on chest x-ray, elevated D-dimers, CT angiogram was ordered, pulm embolism ruled out but showed pulmonary arterial hypertension, patient has loud 5/6 systolic murmur aortic and pulmonic area, patient denies history of chest pain, NSTEMI likely type II in the setting of acute hypoxic respiratory failure and pneumonia, troponins already peaked ? IV diuresis Lasix 40 mg twice daily, with strict I's and O's, Kearns's catheter ordered ? Echocardiogram ordered ? Cardiology consult to Dr. Rosa Kraus placed, appreciate recommendations ? Heparin drip initiated for anticoagulation as patient has high [id number] score, also not on current anticoagulation due to noncompliance with medications, high risk of stroke. #Pulmonary embolism -ruled out #DVT ruled out ?Bilateral lower limb swelling likely due to CHF, ruled out DVT on Doppler ultrasound, pulm embolism ruled out on CT angiogram ? Ordered NM V/Q scan , to rule out CTEPH, negative for PE. #Concern for acute calculus cholecystitis - ruled out ?ultrasound gallbladder reported as caute calculus cholecystitis due to gallbladder wall edema, but patient does not have right upper quadrant tenderness, general surgeon Dr. Barrera was consulted, was not impressed with the diagnosis of cholecystitis, recommended getting HIDA scan to rule out acute cholecystitis. HIDA scan negative for acute cholecystitis. ? IV Zosyn 3.375 every 8 hourly, started 10/11/2024 ? Follow-up blood cultures #Pneumonia ? Bilateral pneumonia likely community-acquired, IV Zosyn for now, follow microbiology results. Patient evaluated and examined at the bedside, plan of care discussed with rest of the team including my attending physician, except as noted. Quresh PGY2 Attending Provider Attestation/Addendum Patient seen and evaluated during rapid response. The patient is difficult to arouse. She is drowsy after her CT scan. Teleneuro has seen this patient. CO2 up to 32 she is on Lasix Continue continue to monitor. Patient's son at bedside and updated of her condition.
[2024-10-13 13:42] LABS: Partial Thromboplastin Time 54.9 Seconds (22.0-36.0)
--- NOTE | 2024-10-13 15:49 | PC.SS ---
Rounding: Ava mcdaniels, HEAD TURBINE OPERATOR called today-Stroke ruled out, pending supervisor display fabrication reccs.
--- NOTE | 2024-10-13 16:03 | ESPR_ITS ---
RE: JOHNATHON TAM : 1945 DATE OF SERVICE: 10/13/2024 S: The patient is doing fairly well except she is somewhat sleepy today when I examined. She is not having any chest pain or shortness of breath. Remains in AFib with rate control. Cardiac exam showed biatrial marked enlargement, restrictive cardiomyopathy, and valvular heart disease. Clinically, she is tolerating well. She is on heparin drip now and does not complain of any chest pain, shortness of breath, orthopnea, or PND. Rate is controlled well, also receiving antibiotics. LAB DATA: Hemoglobin and hematocrit stable. White count normal. Turn Laster panel is also normal. Troponin levels were elevated initially 1.7 down to 1.1 on 10/11/2024. O: General: Alert and awake, in no acute distress. Vital Signs: Blood pressure 114/79. Pulse rate is 80. Respirations 16. Temperature normal. Pulse ox 95%. HEENT: Head is atraumatic. Neck: Supple. No JVD. Chest: Symmetrical. Lungs: Decreased breath sounds. No rales. Heart: S1, S2, irregular, atrial fibrillation. Abdomen: Thin and soft. Extremities: Mild edema. Genitourinary and Rectal: Not performed. A: 1. Atrial fibrillation, rate controlled. 2. Elevated troponin, acute non-ST segment elevation myocardial infarction. 3. Valvular heart disease. Echo showing evidence of biatrial enlargement and ejection fraction of 55% with mild mitral stenosis and moderate aortic regurgitation and mild mitral regurgitation. P: The patient will continue on IV heparin for now and antibiotics. Discussed for possibly coronary angiogram either tomorrow or day after depending on how the patient agrees and if she has any chest pain. DT: 14:48:02 TT: 16:01:00 Ref: [id number] - TID: [id number]
--- NOTE | 2024-10-13 17:44 | PC.NURSE ---
Patient has been lethargic during the shift. Family stated that patient had his lunch and ate almost 50% of it but every time this nurse checks on the patient, she is lethargic. P.O meds not given. aware
[2024-10-13 21:22] LABS: Partial Thromboplastin Time 81.6 Seconds (22.0-36.0)
[2024-10-14] VITALS (10 sets, daily range): BP systolic 90–117; BP diastolic 62–85; PULSE 76–99; RESP 16–18; TEMP 36.1–36.5; O2SAT 93–97; BMI 11.0; BMI 12.0
[2024-10-14] MEDS: Heparin/D5w 25K 250 ML Ivpb 25,000 UNIT/250 ML BAG 8.074 UNIT IV (05:17)
[2024-10-14] MEDS: PIPER/TAZO 3.375 GM 3.375 GM/50 ML BAG IV ×3 (05:17→21:13)
[2024-10-14 05:48] LABS: Basophils % (Auto) 0 % (0-2.5); Eosinophils # (Auto) 0.4 Thou/mm3 (0.0-0.5); Eosinophils % (Auto) 6 % (0-10); Hematocrit 40.5 % (36.0-46.0); Hemoglobin 13.2 g/dL (12.0-16.0); Immature Granulocytes % (Auto) 1 % (0-0); Immature Granulocytes Auto 0.06 Thou/mm3 (0.00-0.00); Lymphocytes # (Auto) 1.4 Thou/mm3 (1.0-4.8); Lymphocytes % (Auto) 20 % (10-50); Mean Corpuscular HGB Conc 32.6 g/dl (31.0-37.0); Mean Corpuscular Hemoglobin 30.1 pg (25.0-35.0); Mean Corpuscular Volume 92 fL (80-100); Monocytes # (Auto) 0.9 Thou/mm3 (0.0-0.8); Monocytes % (Auto) 14 % (0-12); Neutrophils # (Auto) 3.9 Thou/mm3 (1.8-7.7); Neutrophils % (Auto) 59 % (37-80); Nucleated Red Blood Cell % 0 /100 WBC (0); Platelet Count 193 Thou/mm3 (140-440); RDW Standard Deviation 48.8 fL (36.4-46.3); Red Blood Count 4.39 Miln/mm3 (4.00-5.20); White Blood Count 6.7 Thou/mm3 (3.6-11.0)
[2024-10-14 06:17] LABS: Partial Thromboplastin Time 68.8 Seconds (22.0-36.0)
[2024-10-14 06:31] LABS: Alanine Aminotransferase 12 U/L (10-49); Albumin, Serum 3.2 gm/dL (3.4-4.8); Albumin/Globulin Ratio 1.5 (1.2-2.2); Alkaline Phosphatase 51 U/L (46-116); Anion Gap 8 (7-16); Aspartate Amino Transferase < 8 U/L (0-34); BUN/Creatinine Ratio 21 Ratio (12-20); Blood Urea Nitrogen 15 mg/dL (9-23); Calcium 9.5 mg/dL (8.3-10.6); Calcium (Corrected) 10.1 mg/dL (8.5-10.1); Carbon Dioxide 34.3 mMol/L (20.0-31.0); Chloride 99 mMol/L (98-107); Creatinine (Component) 0.7 mg/dL (0.6-1.3); Estimated Creatinine Clearance 59.1 mL/min (>60); Globulin 2.1 gm/dL (2.3-3.5); Glucose 83 mg/dL (74-106); Osmolality,Calculated 281 (275-295); Phosphorous 2.6 mg/dL (2.4-5.1); Potassium 3.3 mMol/L (3.4-5.1); Sodium 141 mMol/L (136-145); Total Protein 5.3 gm/dL (5.7-8.2); eGFR > 60 See Note
--- NOTE | 2024-10-14 09:03 | XR_ITS ---
Examination: AP chest single view TECHNIQUE: AP sitting portable chest single view Exam date and time: October 14, 2024 0918 hours Comparison October 11, 2024 INDICATIONS: Shortness of breath today. FINDINGS: Marked enlargement cardiac contour Prominent vascular congestion Minimal septal edema at the lung bases Prominent osteopenia IMPRESSION: Marked enlargement cardiac contour Mild chronic heart failure pattern
[2024-10-14] MEDS: POTASSIUM CHLORIDE 10% 20 MEQ/15 ML UDC 40 MEQ PO (09:53)
[2024-10-14] MEDS: PANTOPRAZOLE 40 MG TABLET PO (09:54)
--- NOTE | 2024-10-14 09:57 | PC.SS ---
Follow up note: Consulting Neurology. Possible cath placement by Dr. Kraus.
[2024-10-14] MEDS: SENNA TABLET 1 TAB PO (10:10)
[2024-10-14] MEDS: DOCUSATE SOD 100 MG CAPSULE PO (10:11)
--- NOTE | 2024-10-14 12:43 | PC.SS ---
SS met with physicans who had concerns about patient's self care. Pt has not followed up with PCP since 2019 about 5-6 years, not taking prescribed medications, had extensive vaginosis upon arrival to the hospital, and smelled of urine.? Prior to current admission pt able to complete ADLs independently.? Pt also observed to be in position of bruising on right leg.? Per hospital staff pt is on blood thinner which could have caused the bruising.? Pt denies any safety concerns related to family and residence. SS submitted APS report to Sandrine Hernández. SS faxed over written report. APS requesting follow up phone call on [facility]an[facility]'s d/c disposition.?
--- NOTE | 2024-10-14 13:35 | PC.NURSE ---
Patient went to [facility] via [facility] for NM VQ scan. Heparin drip unhooked for procedure. aware.
--- NOTE | 2024-10-14 14:16 | PC.NURSE ---
Patient back to [facility] via gurney after scan from [facility].
[2024-10-14 15:02] LABS: Partial Thromboplastin Time 36.5 Seconds (22.0-36.0)
--- NOTE | 2024-10-14 15:37 | PD.RESPRO ---
Documentation for date of: 10/14/24 Subjective Subjective Interval history: 10/14/2024: Overnight no acute events to report. Patient seen and examined in hospital bed with marked improvement in mental status; she is able to answer questions appropriately and is more awake. Patient's family updated regarding the patient's status; she has extensive pulmonary arterial hypertension and is currently being worked up for causes. Patient also has extensive vaginal candidiasis and will require antifungal treatments; MARY and wet mount sample sent out for confirmation. Patient's metabolic alkalosis is persistent even with holding diuretics; will add one-time dose of Diamox. Patient's VQ scan does not show any signs of arterial embolization; this likely rules out group 4 because of pulmonary arterial hypertension. Will continue to monitor and assess the patient; she will need extensive outpatient follow-up with both PCP and cardiology. Exam Vital Signs Temp Pulse Resp BP Pulse Ox O2 Del Method O2 Flow Rate 97.1 F 86 16 112/85 H 97 Room Air 1 10/14/24 11:47 10/14/24 11:47 10/14/24 11:47 10/14/24 11:47 10/14/24 11:47 10/14/24 11:47 10/14/24 09:05 Narrative Exam Physical Exam: GENERAL: Awake, answering questions with one-word answers, appears stated age HEENT: NC/AT. Moist mucosa. PERRLA. CARDIO: irregularly irregular, no obvious murmurs, no JVD. PULM: No coughing or visible SOB. Lungs CTA B/L. Crackles noted on upper lung sparks bilaterally GI: Abdomen soft, NT/ND, +BS. URO/EMERGENCY DEPARTMENT MANAGER: Extensive vaginal erythema with white discharge SKIN/MSK/EXT: +2 pitting edema b/l lower extremities. No wounds/discoloration/rashes/amputations noted. +Pedal pulses present B/L. NEURO: Oriented x2 (person and place), patient able to move extremities x4 Objective Labs 10/15/24 04:50 10/15/24 04:50 Labs: Laboratory Results - last 24 hr 10/13/24 10/14/24 10/14/24 20:25 04:04 14:27 WBC 6.7 RBC 4.39 Hgb 13.2 Hct 40.5 MCV 92 MCH 30.1 MCHC 32.6 RDW Std Deviation 48.8 H Plt Count 193 D Neut % (Auto) 59 Lymph % (Auto) 20 [place] % (Auto) 14 H Eos % (Auto) 6 Baso % (Auto) 0 Neut # (Auto) 3.9 Lymph # (Auto) 1.4 [place] # (Auto) 0.9 H Eos # (Auto) 0.4 Baso # (Auto) 0.0 Immature Gran # (Auto) 0.06 H Absolute Nucleated RBC 0.00 Immature Gran % 1 H Nucleated RBC % 0 APTT 81.6 H D 68.8 H D 36.5 H D Sodium 141 Potassium 3.3 L Chloride 99 Carbon Dioxide 34.3 H Anion Gap 8 BUN 15 Creatinine 0.7 Estim Creat Clear Calc 59.1 L eGFR > 60 BUN/Creatinine Ratio 21 H Glucose 83 Calculated Osmolality 281 Calcium 9.5 Corrected Calcium 10.1 Phosphorus 2.6 Magnesium 2.0 Total Bilirubin 1.0 AST < 8 ALT 12 Alkaline Phosphatase 51 Total Protein 5.3 L Albumin 3.2 L Globulin 2.1 L Albumin/Globulin Ratio 1.5 ABG Interpretation ABG results: 10/11/24 10/13/24 04:23 11:24 ABG pH 7.46 H 7.48 H ABG pCO2 35 52 H D ABG pO2 87 62 L D ABG HCO3 25 39 H ABG O2 Saturation 98 93 ABG Base Excess 1 13 H Quality Measures Quality Measures none Advance care planning discussed with:: patient and child Assessment & Plan Assessment Current Active Medications: Generic Name Dose Route Start Last Admin Trade Name Freq PRN Reason Stop Dose Admin Acetaminophen 650 mg 10/11/24 11:44 Acetaminophen 325 Mg Tablet PO 11/10/24 11:43 Q6H PRN Fever >101.5 Acetaminophen 650 mg 10/11/24 11:44 Acetaminophen 325 Mg Tablet PO 11/10/24 11:43 Q6H PRN PAIN SCALE 1-3 (mild Docusate Sodium 100 mg 10/12/24 09:00 10/14/24 10:11 Docusate Sod 100 Mg Capsule PO 11/11/24 08:59 100 mg QDAY CRYSTAL Administration Protocol Furosemide 40 mg 10/11/24 18:00 10/13/24 05:14 Furosemide Inj 10 Mg/Ml 4ml Vial IVP 11/10/24 17:59 40 mg BIDD CRYSTAL Administration Piperacillin/Tazobactam/Dextrose 3.375 gm in 50 mls @ 12.5 mls/hr 10/11/24 22:00 10/14/24 14:19 Zosyn IV 10/18/24 21:59 12.5 mls/hr Q8HR CRYSTAL Administration Heparin Sodium/Dextrose 25,000 unit in 250 mls @ 9.689 mls/hr 10/11/24 14:00 10/14/24 07:03 Heparin In D5w Ivpb IV 10/25/24 13:59 10 units/kg/hr .Q24H CRYSTAL 8.074 mls/hr Titration Protocol 12 UNITS/KG/HR Ondansetron HCl 4 mg 10/11/24 11:44 Ondansetron Inj 2 Mg/Ml Inj 2 Ml IV 11/10/24 11:43 Q6H PRN NAUSEA OR VOMITING Protocol Pantoprazole Sodium 40 mg 10/13/24 09:00 10/14/24 09:54 Pantoprazole 40 Mg Tablet PO 11/12/24 08:59 40 mg QDAY CRYSTAL Administration Sennosides 1 tab 10/12/24 09:00 10/14/24 10:10 Senna Tablet PO 11/11/24 08:59 1 tab QDAY CRYSTAL Administration Protocol Plan 79-year-old female with past medical history of atrial fibrillation, hypertension, coronary artery disease, remote hx of anticoagulation with warfarin presented due to shortness of breath, admitted for acute hypoxic respiratory failure secondary to CHF exacerbation along with superimposed pneumonia treated with IV antibiotics and found to have severe pulmonary arterial hypertension on echocardiography. #Acute decompensated heart failure exacerbation #Pulmonary arterial hypertension #Left-sided pneumonia #Concern for PE-ruled out On examination patient noted to have bilateral crackles and +2 pitting bilateral lower extremity edema Chest x-ray shows prominent CHF pattern Venous ultrasound of bilateral lower extremities negative for DVT CTA chest negative for pulmonary embolism Patient has a fluid balance of net negative 4.8L in the past 24 hours. Blood cultures showed no bacterial growth x 2 days ECHO 10/11/2024 shows: Normal left ventricular size. Estimated EF 55%. RV is normal in size. RV systolic function is moderately decreased. Estimated RVSP, 83 mmHg. RAP 15. Severe biatrial dilation. Severe mitral annulus calcification with mild stenosis. Moderate MR and TR. Aortic valve sclerosis with mild to moderate aortic regurgitation. Less than 50% respiratory change in dimension of the inferior vena cava abnormal. Pulmonary arterial hypertension likely group 2 versus group 4: Patient does not have any history of pulmonary disease. VQ scan ordered to ruled out group 4 pulmonary arterial hypertension Plan: Continuing to hold Lasix 40 mg twice daily Strict I's and O's Fluid restriction 1500 mL Daily weights IV Zosyn 3.375 g IV every 8 hourly to cover for possible cholecystitis and pneumonia, day 4 Cardiology, Dr. Kaden Kraus consulted and closely following the case. Appreciate recommendations #Acute encephalopathy, improving Likely secondary to acute hypoxic respiratory failure due to decompensated heart failure versus pulmonary arterial hypertension Rapid response and stroke protocol initiated CT head was negative for any acute process Per nurse, the patient is more responsive when family is bedside; however, on reexamination the patient has difficulty following commands Plan: Teleneurology consulted, appreciate recommendations Head of bed greater than 30 Euglycemic Speech eval recommends dysphagia 2 diet, thick liquids PT eval reassess the patient #Metabolic alkalosis 2/ likely secondary to IV diuretics, contraction alkalosis versus endocrine disorder (hyperaldosteronism, [place]'s) renal loss Patient developed new metabolic alkalosis with a bicarb of 33.5 on CMP ABG on 10/13 shows pH 7.48, pCO2 52, pO2 61 bicarb of 39 Patient's BUN and creatinine mildly elevated from previous labs; patient still appears volume overloaded on clinical exam Plan: Holding IV diuretics for 1 day and will reassess with morning labs x1 dose of acetazolamide #Candidal Vulvovaginitis Patient has extensive excoriations along with white discharge and erythema noted near and round pubic region MARY and Wet mount sent Plan: Continue treating with Fluconazole 150mg po qday Follow-up on samples sent Wound care consult #Atrial fibrillation?long-term, persistent EKG showed atrial fibrillation [id number]: 5 Plan: Continue heparin infusion for anticoagulation Will start apixaban upon discharge as per cardiology recommendations. 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 Barrera has very low suspicion for acute cholecystitis Nuclear medicine HIDA scan shows abnormal gallbladder ejection fraction, 23%, normal greater than 35% Plan: Dr. Barrera, general surgery, consulted appreciate recommendations #Failure to thrive #Concern for malnutrition #Multiple bruises Patient has multiple bruises across her body Femur and pelvis x-ray negative for any fracture Plan: Follow dietitian and psychosocial rehabilitation counselor recommendations Hospital Management: Bowel: Senna Diet: Cardiac, dysphagia 2; 1500cc fluid restriction Lines: PIVs GI Prophylaxis: None DVT Prophylaxis: Heparin infusion Code: Full Patient seen and examined with attending Dr. Chichi Langford, PGY-1 Attending Provider Attestation/Addendum I have discussed and was present for the essential components of the history, physical examination, diagnosis, and treatment plan with the resident. I agree with the patient's care as documented by the resident and amended herein by me. Bartolo Cadet, DO. Although this document has been carefully reviewed, there may still be some phonetic and other typographical errors. These errors are purely grammatical due to imperfections in the software program and should not be construed in any way to compromise the substance of the patient's medical care during this visit.
[2024-10-14] MEDS: HEPARIN SOD INJ 5000 UNIT/ML VIAL 2000 UNIT IV (15:46)
[2024-10-14] MEDS: ACETAzolaMIDE 250 MG TABLET 500 MG PO (17:49)
--- NOTE | 2024-10-14 19:15 | ESPR_ITS ---
<Statement entered by Shane Kraus MD - 10/18/24 08:55> I personally evaluated this patient with resident physician schedule for coronary angiogram tomorrow and cardiac catheterization risk benefits alternatives explained patient agreed to have the procedure performed. Documentation for date of: 10/14/24 Subjective Subjective Interval history: S: The patient is doing fairly well, notably lethargic. Spoke to family at bedside. She is not having any chest pain or shortness of breath. Remains in AFib with rate control. Cardiac exam showed biatrial marked enlargement, restrictive cardiomyopathy, and valvular heart disease. She is on heparin drip now and does not complain of any chest pain, shortness of breath, orthopnea, or PND. Rate is controlled well, also receiving antibiotics. Plan for cardiac cath tomorrow morning. LAB DATA: Hemoglobin and hematocrit stable. White count normal. [place] panel is also normal, except potassium 3.3. Troponin levels were elevated initially 1.7 down to 1.1 on 10/11/2024. O: General: Alert, lethargic, in no acute distress. Vital Signs: Blood pressure 117/80. Pulse rate is 93. Respirations 17. Temperature normal. Pulse ox 94% an room air. HEENT: Head is atraumatic. Neck: Supple. No JVD. Chest: Symmetrical. Lungs: Decreased breath sounds. No rales. Heart: S1, S2, irregular, atrial fibrillation. Abdomen: Thin and soft. Extremities: Mild edema. Genitourinary and Rectal: Not performed. A: 1. Atrial fibrillation, rate controlled. 2. Elevated troponin, acute non-ST segment elevation myocardial infarction. 3. Valvular heart disease. Echo showing evidence of biatrial enlargement and ejection fraction of 55% with mild mitral stenosis and moderate aortic regurgitation and mild mitral regurgitation. P: The patient will continue on IV heparin for now and antibiotics. Plan for coronary angiogram tomorrow morning. Patient NPO after midnight, hold heparin at 6:00 am. Exam Vital Signs Temp Pulse Resp BP Pulse Ox O2 Del Method O2 Flow Rate 97.1 F 93 17 117/80 94 L Room Air 1 10/14/24 16:10/14/24 16:10/14/24 16:10/14/24 16:10/14/24 16:10/14/24 16:10/14/24 09:05 Objective Labs 10/16/24 04:34 10/16/24 04:34 Labs: Laboratory Results - last 24 hr 10/13/24 10/14/24 10/14/24 20:25 04:04 14:27 WBC 6.7 RBC 4.39 Hgb 13.2 Hct 40.5 MCV 92 MCH 30.1 MCHC 32.6 RDW Std Deviation 48.8 H Plt Count 193 D Neut % (Auto) 59 Lymph % (Auto) 20 Iron % (Auto) 14 H Eos % (Auto) 6 Baso % (Auto) 0 Neut # (Auto) 3.9 Lymph # (Auto) 1.4 Iron # (Auto) 0.9 H Eos # (Auto) 0.4 Baso # (Auto) 0.0 Immature Gran # (Auto) 0.06 H Absolute Nucleated RBC 0.00 Immature Gran % 1 H Nucleated RBC % 0 APTT 81.6 H D 68.8 H D 36.5 H D Sodium 141 Potassium 3.3 L Chloride 99 Carbon Dioxide 34.3 H Anion Gap 8 BUN 15 Creatinine 0.7 Estim Creat Clear Calc 59.1 L eGFR > 60 BUN/Creatinine Ratio 21 H Glucose 83 Calculated Osmolality 281 Calcium 9.5 Corrected Calcium 10.1 Phosphorus 2.6 Magnesium 2.0 Total Bilirubin 1.0 AST < 8 ALT 12 Alkaline Phosphatase 51 Total Protein 5.3 L Albumin 3.2 L Globulin 2.1 L Albumin/Globulin Ratio 1.5 ABG Interpretation ABG results: 10/11/24 10/13/24 04:23 11:24 ABG pH 7.46 H 7.48 H ABG pCO2 35 52 H D ABG pO2 87 62 L D ABG HCO3 25 39 H ABG O2 Saturation 98 93 ABG Base Excess 1 13 H Quality Measures Quality Measures none Advance care planning discussed with:: patient and child Assessment & Plan Assessment Current Active Medications: Generic Name Dose Route Start Last Admin Trade Name Freq PRN Reason Stop Dose Admin Acetaminophen 650 mg 10/11/24 11:44 Acetaminophen 325 Mg Tablet PO 11/10/24 11:43 Q6H PRN Fever >101.5 Acetaminophen 650 mg 10/11/24 11:44 Acetaminophen 325 Mg Tablet PO 11/10/24 11:43 Q6H PRN PAIN SCALE 1-3 (mild Docusate Sodium 100 mg 10/12/24 09:00 10/14/24 10:11 Docusate Sod 100 Mg Capsule PO 11/11/24 08:59 100 mg QDAY CRYSTAL Administration Protocol Furosemide 40 mg 10/11/24 18:00 10/13/24 05:14 Furosemide Inj 10 Mg/Ml 4ml Vial IVP 11/10/24 17:59 40 mg BIDD CRYSTAL Administration Piperacillin/Tazobactam/Dextrose 3.375 gm in 50 mls @ 12.5 mls/hr 10/11/24 22:00 10/14/24 14:19 Zosyn IV 10/18/24 21:59 12.5 mls/hr Q8HR CRYSTAL Administration Heparin Sodium/Dextrose 25,000 unit in 250 mls @ 9.689 mls/hr 10/11/24 14:00 10/14/24 15:36 Heparin In D5w Ivpb IV 10/25/24 13:59 12 units/kg/hr .Q24H CRYSTAL 9.689 mls/hr Titration Protocol 12 UNITS/KG/HR Ondansetron HCl 4 mg 10/11/24 11:44 Ondansetron Inj 2 Mg/Ml Inj 2 Ml IV 11/10/24 11:43 Q6H PRN NAUSEA OR VOMITING Protocol Pantoprazole Sodium 40 mg 10/13/24 09:00 10/14/24 09:54 Pantoprazole 40 Mg Tablet PO 11/12/24 08:59 40 mg QDAY CRYSTAL Administration Sennosides 1 tab 10/12/24 09:00 10/14/24 10:10 Senna Tablet PO 11/11/24 08:59 1 tab QDAY CRYSTAL Administration Protocol
[2024-10-14 23:38] LABS: Partial Thromboplastin Time 78.7 Seconds (22.0-36.0)
--- NOTE | 2024-10-14 23:47 | PC.NURSE ---
Patient's blood result APTT has resulted and came out to be 78.7. Upon reviewing the protocol for the heparin, the protocol states to maintain the current rate and schedule another lab draw for 6 hrs unless the patient has been on the drip past 24 hr. If past 24 hrs, the next APTT draw will be scheduled in morning labs.
[2024-10-15] VITALS (15 sets, daily range): BP systolic 98–126; BP diastolic 67–97; PULSE 78–100; RESP 10–24; TEMP 35.9–36.4; O2SAT 90–96
[2024-10-15] MEDS: PIPER/TAZO 3.375 GM 3.375 GM/50 ML BAG IV ×3 (05:24→22:32)
[2024-10-15 06:18] LABS: Basophils % (Auto) 0 % (0-2.5); Eosinophils # (Auto) 0.2 Thou/mm3 (0.0-0.5); Eosinophils % (Auto) 1 % (0-10); Hematocrit 44.1 % (36.0-46.0); Hemoglobin 14.6 g/dL (12.0-16.0); Immature Granulocytes % (Auto) 1 % (0-0); Immature Granulocytes Auto 0.07 Thou/mm3 (0.00-0.00); Lymphocytes # (Auto) 0.8 Thou/mm3 (1.0-4.8); Lymphocytes % (Auto) 7 % (10-50); Mean Corpuscular HGB Conc 33.1 g/dl (31.0-37.0); Mean Corpuscular Hemoglobin 30.5 pg (25.0-35.0); Mean Corpuscular Volume 92 fL (80-100); Monocytes # (Auto) 1.2 Thou/mm3 (0.0-0.8); Monocytes % (Auto) 11 % (0-12); Neutrophils # (Auto) 8.8 Thou/mm3 (1.8-7.7); Neutrophils % (Auto) 80 % (37-80); Nucleated Red Blood Cell % 0 /100 WBC (0); Platelet Count 215 Thou/mm3 (140-440); RDW Standard Deviation 49.3 fL (36.4-46.3); Red Blood Count 4.79 Miln/mm3 (4.00-5.20); White Blood Count 11.1 Thou/mm3 (3.6-11.0)
[2024-10-15 06:40] LABS: Alanine Aminotransferase 11 U/L (10-49); Albumin, Serum 3.5 gm/dL (3.4-4.8); Albumin/Globulin Ratio 1.6 (1.2-2.2); Alkaline Phosphatase 55 U/L (46-116); Anion Gap 8 (7-16); BUN/Creatinine Ratio 19 Ratio (12-20); Bilirubin,Total 1.4 mg/dL (0.3-1.2); Blood Urea Nitrogen 13 mg/dL (9-23); Calcium 9.9 mg/dL (8.3-10.6); Calcium (Corrected) 10.3 mg/dL (8.5-10.1); Carbon Dioxide 28.4 mMol/L (20.0-31.0); Chloride 105 mMol/L (98-107); Creatinine (Component) 0.7 mg/dL (0.6-1.3); Estimated Creatinine Clearance 57.8 mL/min (>60); Globulin 2.2 gm/dL (2.3-3.5); Glucose 100 mg/dL (74-106); Osmolality,Calculated 281 (275-295); Potassium 3.4 mMol/L (3.4-5.1); Sodium 141 mMol/L (136-145); Total Protein 5.7 gm/dL (5.7-8.2); eGFR > 60 See Note
[2024-10-15 07:50] LABS: Aspartate Amino Transferase < 8 U/L (0-34)
--- NOTE | 2024-10-15 08:28 | PC.NURSE ---
pt transferred to surgery via hospital bed by Robert MACDONALD @[id number]. pt aaox2 and stable.
--- NOTE | 2024-10-15 08:58 | PC.SS ---
SS met with patient son, Casey and dtr, Megan (phone# [phone]) regarding patient's d/c plan.? Pt is alert/oriented.? Pt was admitted for CHF Exacerbation.? Pt confirmed demographic and contact information is correct on facesheet.? Pt resides with son.? Prior to being hospitalized pt ambulate independently without assistance.? Pt has a 2 wheel walker and wheelchair at home.? Pt is ok with all ADLs.? Pt named her son, Casey Macias medical decision maker if she is unable.? SS provided verbal d/c options for home or SNF.? Patient's choice is? SNF upon d/c and family is agreeable.? Son explained pt last followed up with Dr. Kraus in 2019 and he has been her PCP since. D/C plan:? SNF Next of Kin:? Casey Macias, son, phone# [phone] or Megan Macias, dtr, phone# [phone] PCP:? Dr. Kraus Address:? Correct on facesheet
--- NOTE | 2024-10-15 09:44 | ESOP_ITS ---
RE: JOHNATHON TAM : 1945 DATE OF OPERATION: 10/15/2024 PROCEDURES PERFORMED: 1. Diagnostic left heart cardiac catheterization, selective coronary angiogram, left ventricular angiogram, CPT 01088. 2. Conscious sedation, 30 minutes duration. 3. Ultrasound-guided access, right radial artery. DIAGNOSIS: Coronary artery disease, acute non-ST segment elevation myocardial infarction, atrial fibrillation, valvular heart disease. HISTORY AND INDICATIONS: The patient is an 79-year-old female with a past medical history of hypertension, atrial fibrillation, valvular heart disease. He came to the hospital with severe shortness of breath, chest pain and was found to have an acute non-ST segment elevation myocardial infarction, troponin was significantly elevated. She was also in atrial fibrillation with moderate rapid heart rate, subsequently slowed down because of recurrent shortness of breath and acute myocardial infarction with troponin evaluation. Coronary angiogram and cardiac catheterization was recommended to assess the patient is a candidate for intervention or revascularization. PROCEDURE IN DETAIL: The patient was brought to cardiac catheterization laboratory. She was given 0.5 mg of Versed, 25 mcg of fentanyl for sedation. The right radial approach was taken. The right radial artery cannulated with micropuncture technique 5-[place] sheath was introduced. Selective right and left coronary angiogram was performed TIG-4 diagnostic catheter. A 5-[place] catheter was used. Multiple . The patient tolerated the procedure well. No complications. TR band was applied. Hemostasis was secured. Coronary angiogram showed following findings: The right coronary artery is large and dominant giving . Left coronary artery system: Left main coronary artery is normal. Left anterior descending artery appears normal. Circumflex artery and ramus intermedius all of them appear normal. Left ventricular pressure 111/10, EDP is 12. Aortic pressure 110/80. No gradient across the aortic valve. Cardiac fluoroscopy showed heavy mitral annulus calcification. Left ventricular angiogram showed normal left ventricular wall motion and ejection fraction of 60%. SUMMARY OF FINDINGS AND SUGGESTIONS: 1. Normal nonobstructive epicardial coronary arteries. 2. Normal left ventricular function, EF 60%. 3. Heavy mitral annulus calcification. RECOMMENDATIONS: The patient was reassured that there is no significant obstructive coronary artery disease, type 2 troponin elevation not due to myocardial infarction or coronary artery disease. Recommendations; continue medical management. Atrial fibrillation will be managed with rate control and Eliquis 2.5 mg twice daily will be given her body weight and age, and the patient can be discharged home once she is stable from medical point of view. DT: 08:32:09 TT: 09:15:00 Ref: [id number] - TID: [id number]
[2024-10-15 09:49] LABS: Partial Thromboplastin Time 85.9 Seconds (22.0-36.0)
--- NOTE | 2024-10-15 11:25 | PC.SS ---
PASRR assessment is complete.
[2024-10-15] MEDS: POTASSIUM CHL 10 mEq IVPB 10 MEQ/100 ML BAG 100 MEQ IV ×4 (12:29→17:42)
[2024-10-15] MEDS: SENNA TABLET 1 TAB PO (12:31)
[2024-10-15] MEDS: PANTOPRAZOLE 40 MG TABLET PO (12:31)
[2024-10-15] MEDS: DOCUSATE SOD 100 MG CAPSULE PO (12:31)
--- NOTE | 2024-10-15 16:13 | PC.SS ---
SS met with pt, dtr, Megan, and son, Casey regarding SNF options. Son and daughter's choice is [facility]. Son refuses [facility]. Son and dtr are aware SS has filed APS for self neglect.
--- NOTE | 2024-10-15 17:00 | ESPR_ITS ---
Documentation for date of: 10/15/24 Subjective Subjective Interval history: 10/15/2024: Overnight heparin gtt was stopped for left heart cath scheduled. Patient seen and examined and appears to have improvement in presenting symptoms. Left heart cath completed with Cardiology and there was no acute interventions completed. Patient will be discharged pending final recommendation from Cardiology. Will likely discharge on 10/16 if patient remains clinically stable. Exam Vital Signs Temp Pulse Resp BP Pulse Ox O2 Del Method O2 Flow Rate 97.3 F 83 18 115/77 94 L Room Air 2 10/15/24 12:00 10/15/24 12:10/15/24 12:10/15/24 12:10/15/24 12:10/15/24 12:10/15/24 10:28 Narrative Exam Physical Exam: GENERAL: Awake, answering questions appropriately, appears stated age HEENT: NC/AT. Moist mucosa. PERRLA. CARDIO: irregularly irregular, no obvious murmurs, no JVD. PULM: No coughing or visible SOB. Lungs CTA B/L. GI: Abdomen soft, NT/ND, +BS. URO/QUALITY CONTROL LAB TECH: Extensive vaginal erythema with white discharge shows improvement SKIN/MSK/EXT: nonpitting edema b/l lower extremities. No wounds/discoloration/rashes/amputations noted. +Pedal pulses present B/L. NEURO: Oriented x2 (person and place), patient able to move extremities x4 Objective Labs 10/15/24 04:50 10/15/24 04:50 Labs: Laboratory Results - last 24 hr 10/14/24 10/15/24 21:43 04:50 WBC 11.1 H D RBC 4.79 Hgb 14.6 Hct 44.1 MCV 92 MCH 30.5 MCHC 33.1 RDW Std Deviation 49.3 H Plt Count 215 Neut % (Auto) 80 Lymph % (Auto) 7 L [place] % (Auto) 11 Eos % (Auto) 1 Baso % (Auto) 0 Neut # (Auto) 8.8 H Lymph # (Auto) 0.8 L [place] # (Auto) 1.2 H Eos # (Auto) 0.2 Baso # (Auto) 0.0 Immature Gran # (Auto) 0.07 H Absolute Nucleated RBC 0.00 Immature Gran % 1 H Nucleated RBC % 0 APTT 78.7 H D 85.9 H Sodium 141 Potassium 3.4 Chloride 105 Carbon Dioxide 28.4 Anion Gap 8 BUN 13 Creatinine 0.7 Estim Creat Clear Calc 57.8 L eGFR > 60 BUN/Creatinine Ratio 19 Glucose 100 Calculated Osmolality 281 Calcium 9.9 Corrected Calcium 10.3 H Total Bilirubin 1.4 H AST < 8 ALT 11 Alkaline Phosphatase 55 Total Protein 5.7 Albumin 3.5 Globulin 2.2 L Albumin/Globulin Ratio 1.6 ABG Interpretation ABG results: 10/11/24 10/13/24 04:23 11:24 ABG pH 7.46 H 7.48 H ABG pCO2 35 52 H D ABG pO2 87 62 L D ABG HCO3 25 39 H ABG O2 Saturation 98 93 ABG Base Excess 1 13 H Quality Measures Quality Measures none Advance care planning discussed with:: patient and child Assessment & Plan Assessment Current Active Medications: Generic Name Dose Route Start Last Admin Trade Name Freq PRN Reason Stop Dose Admin Acetaminophen 650 mg 10/11/24 11:44 Acetaminophen 325 Mg Tablet PO 11/10/24 11:43 Q6H PRN Fever >101.5 Acetaminophen 650 mg 10/11/24 11:44 Acetaminophen 325 Mg Tablet PO 11/10/24 11:43 Q6H PRN PAIN SCALE 1-3 (mild Apixaban 2.5 mg 10/16/24 09:00 Apixaban 2.5 Mg Tablet PO 11/15/24 08:59 BID CRYSTAL Docusate Sodium 100 mg 10/12/24 09:00 10/15/24 12:31 Docusate Sod 100 Mg Capsule PO 11/11/24 08:59 100 mg QDAY CRYSTAL Administration Protocol Furosemide 40 mg 10/11/24 18:00 10/13/24 05:14 Furosemide Inj 10 Mg/Ml 4ml Vial IVP 11/10/24 17:59 40 mg BIDD CRYSTAL Administration Piperacillin/Tazobactam/Dextrose 3.375 gm in 50 mls @ 12.5 mls/hr 10/11/24 22:00 10/15/24 13:35 Zosyn IV 10/18/24 21:59 12.5 mls/hr Q8HR CRYSTAL Administration Ondansetron HCl 4 mg 10/11/24 11:44 Ondansetron Inj 2 Mg/Ml Inj 2 Ml IV 11/10/24 11:43 Q6H PRN NAUSEA OR VOMITING Protocol Pantoprazole Sodium 40 mg 10/13/24 09:00 10/15/24 12:31 Pantoprazole 40 Mg Tablet PO 11/12/24 08:59 40 mg QDAY CRYSTAL Administration Sennosides 1 tab 10/12/24 09:00 10/15/24 12:31 Senna Tablet PO 11/11/24 08:59 1 tab QDAY CRYSTAL Administration Protocol Plan 79-year-old female with past medical history of atrial fibrillation, hypertension, coronary artery disease, remote hx of anticoagulation with warfarin presented due to shortness of breath, admitted for acute hypoxic respiratory failure secondary to CHF exacerbation along with superimposed pneumonia treated with IV antibiotics and found to have severe pulmonary arterial hypertension on echocardiography. #Acute decompensated heart failure exacerbation, improved #Pulmonary arterial hypertension #Left-sided pneumonia, improved On examination patient noted to have bilateral crackles and +2 pitting bilateral lower extremity edema Chest x-ray shows prominent CHF pattern Venous ultrasound of bilateral lower extremities negative for DVT CTA chest negative for pulmonary embolism Patient has a fluid balance of net negative 4.8L in the past 24 hours. Blood cultures showed no bacterial growth x 2 days ECHO 10/11/2024 shows: Normal left ventricular size. Estimated EF 55%. RV is normal in size. RV systolic function is moderately decreased. Estimated RVSP, 83 mmHg. RAP 15. Severe biatrial dilation. Severe mitral annulus calcification with mild stenosis. Moderate MR and TR. Aortic valve sclerosis with mild to moderate aortic regurgitation. Less than 50% respiratory change in dimension of the inferior vena cava abnormal. Pulmonary arterial hypertension likely group 2 versus group 4: Patient does not have any history of pulmonary disease. VQ scan ordered to ruled out group 4 pulmonary arterial hypertension Left heart cath completed and shows no acute disease and no intervention made. Per cardiology there is no need for a right heart cath at this time. Plan: Continuing Lasix 40 mg twice daily Strict I's and O's Fluid restriction 1500 mL Daily weights IV Zosyn 3.375 g IV every 8 hourly to cover for possible cholecystitis and pneumonia, day 5 Cardiology, Dr. Kaden Kraus consulted and closely following the case. Appreciate recommendations #Atrial fibrillation?long-term, persistent EKG showed atrial fibrillation [id number]: 5 Plan: Continue heparin infusion for anticoagulation Will start apixaban 2.5mg po bid upon discharge as per cardiology recommendations. #Acute encephalopathy, resolved Likely secondary to acute hypoxic respiratory failure due to decompensated heart failure versus pulmonary arterial hypertension Rapid response and stroke protocol initiated CT head was negative for any acute process Per nurse, the patient is more responsive when family is bedside; however, on reexamination the patient has difficulty following commands Plan: Teleneurology consulted, appreciate recommendations Head of bed greater than 30 Euglycemic Speech eval recommends dysphagia 2 diet, thick liquids PT eval reassess the patient #Metabolic alkalosis, resolved 2/2 likely secondary to IV diuretics, contraction alkalosis versus endocrine disorder (hyperaldosteronism, Frank's) renal loss Patient developed new metabolic alkalosis with a bicarb of 33.5 on CMP ABG on 10/13 shows pH 7.48, pCO2 52, pO2 61 bicarb of 39 Patient's BUN and creatinine mildly elevated from previous labs; patient still appears volume overloaded on clinical exam Acetazolamide given with resolution in alkalosis Plan: Monitor with AM labs #Candidal Vulvovaginitis Patient has extensive excoriations along with white discharge and erythema noted near and round pubic region MARY and Wet mount sent; not reported back due to lab error. 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 Plan: Outpatient follow-up #Hypertension Patient currently normotensive Patient does not take any medications for more than 7 years Plan: IV diuretics restarted Patient will need outpatient follow-up with PCP immediately after discharge for medication reconciliation, annual exam and to establish care #Failure to thrive #Concern for malnutrition #Multiple bruises Patient has multiple bruises across her body Femur and pelvis x-ray negative for any fracture Plan: Follow dietitian and social worker delinquency prevention recommendations APS sent out; SS following - SNF discharge Hospital Management: Bowel: Senna Diet: Cardiac, dysphagia 2; 1500cc fluid restriction Lines: PIVs GI Prophylaxis: None DVT Prophylaxis: Eliquis 2.5mg po bid Code: Full Patient seen and examined with attending Dr. Chichi Langford, PGY-1 Attending Provider Attestation/Addendum I have discussed and was present for the essential components of the history, physical examination, diagnosis, and treatment plan with the resident. I agree with the patient's care as documented by the resident and amended herein by me. Bartolo Cadet DO. No significant events overnight, cath performed today, no significant obstructions, recommended to continue medical management for now by cardiology, cleared for discharge once medically stable. Will also touch base with cardiology in regards to high RVSP of 83 and inquire if right heart cath should be performed in the future. Will continue to monitor closely, likely discharge 10/16 Although this document has been carefully reviewed, there may still be some phonetic and other typographical errors. These errors are purely grammatical due to imperfections in the software program and should not be construed in any way to compromise the substance of the patient's medical care during this visit.
[2024-10-15] MEDS: FUROSEMIDE INJ 10 MG/ML 4ML VIAL 40 MG IVP (17:42)
[2024-10-16] VITALS (9 sets, daily range): BP systolic 96–118; BP diastolic 71–77; PULSE 77–97; RESP 16–23; TEMP 35.9–36.4; O2SAT 93–96
[2024-10-16] MEDS: FUROSEMIDE INJ 10 MG/ML 4ML VIAL 40 MG IVP (05:29)
[2024-10-16] MEDS: PIPER/TAZO 3.375 GM 3.375 GM/50 ML BAG IV (05:34)
[2024-10-16 05:49] LABS: Basophils % (Auto) 0 % (0-2.5); Eosinophils # (Auto) 0.3 Thou/mm3 (0.0-0.5); Eosinophils % (Auto) 3 % (0-10); Hematocrit 41.6 % (36.0-46.0); Hemoglobin 13.7 g/dL (12.0-16.0); Immature Granulocytes % (Auto) 1 % (0-0); Lymphocytes # (Auto) 0.8 Thou/mm3 (1.0-4.8); Lymphocytes % (Auto) 9 % (10-50); Mean Corpuscular HGB Conc 32.9 g/dl (31.0-37.0); Mean Corpuscular Volume 91 fL (80-100); Monocytes # (Auto) 1.4 Thou/mm3 (0.0-0.8); Monocytes % (Auto) 16 % (0-12); Neutrophils # (Auto) 6.2 Thou/mm3 (1.8-7.7); Neutrophils % (Auto) 71 % (37-80); Nucleated Red Blood Cell % 0 /100 WBC (0); Platelet Count 212 Thou/mm3 (140-440); RDW Standard Deviation 49.1 fL (36.4-46.3); Red Blood Count 4.56 Miln/mm3 (4.00-5.20); White Blood Count 8.8 Thou/mm3 (3.6-11.0)
[2024-10-16 06:46] LABS: Alanine Aminotransferase 9 U/L (10-49); Albumin, Serum 3.2 gm/dL (3.4-4.8); Albumin/Globulin Ratio 1.5 (1.2-2.2); Alkaline Phosphatase 49 U/L (46-116); Anion Gap 10 (7-16); Aspartate Amino Transferase < 8 U/L (0-34); BUN/Creatinine Ratio 19 Ratio (12-20); Bilirubin,Total 1.5 mg/dL (0.3-1.2); Blood Urea Nitrogen 13 mg/dL (9-23); Calcium 9.5 mg/dL (8.3-10.6); Calcium (Corrected) 10.1 mg/dL (8.5-10.1); Carbon Dioxide 25.5 mMol/L (20.0-31.0); Chloride 104 mMol/L (98-107); Creatinine (Component) 0.7 mg/dL (0.6-1.3); Estimated Creatinine Clearance 57.8 mL/min (>60); Globulin 2.2 gm/dL (2.3-3.5); Glucose 81 mg/dL (74-106); Osmolality,Calculated 276 (275-295); Potassium 3.4 mMol/L (3.4-5.1); Sodium 139 mMol/L (136-145); Total Protein 5.4 gm/dL (5.7-8.2); eGFR > 60 See Note
[2024-10-16] MEDS: SENNA TABLET 1 TAB PO (09:02)
[2024-10-16] MEDS: APIXABAN 2.5 MG TABLET PO (09:02)
[2024-10-16] MEDS: PANTOPRAZOLE 40 MG TABLET PO (09:02)
[2024-10-16] MEDS: DOCUSATE SOD 100 MG CAPSULE PO (09:02)
--- NOTE | 2024-10-16 09:35 | PC.SS ---
Addendum entered by SHERIF Green 10/16/24 15:08: [facility] called to move ETA to 1600. Notified nurse and SNF staff. Addendum entered by SHERIF Green 10/16/24 14:22: DESIGNER ARCHITECT updated Ne[facility] on d/c plan for the patient. Addendum entered by SHERIF Green 10/16/24 11:13: ETA changed to 3pm to allow patient to void. Bed side nurse aware. SNF staff notified. Addendum entered by SHERIF Green 10/16/24 11:02: [facility] reference number: [id number]. [facility] ETA 1300. Bed side nurse and [facility] staff updated. Original Note: SS update: plan is to d/c the patient today to [facility]. Naomi at [facility] confirmed patient can d/c to their faiclity today. Spoke with patient's son Casey, and daughter, Megan who also confirm the d/c plan and both agreeable.
--- NOTE | 2024-10-16 10:04 | PC.SS ---
SS [facility] to [employer] using [employer]. [employer] does not have access to file exchange through [employer]
--- NOTE | 2024-10-16 11:48 | ESDS_ITS ---
Planned Discharge Date 10/16/24 DS: Providers Provider Date of admission: 10/11/24 11:44 Primary care physician: Physician No Primary/Family Admitting Provider: Britany Law DO Attending Provider on Admission: Juanito Cadet DO Consults: 10/11/24 09:33 Consult to Cardiology Stat Comment: Consulting Provider: Shane Kraus Instructions: [place] 10/11/24 11:47 Referral Nutritional Services Routine Comment: Referral Physical Therapy Routine Comment: Physician Instructions: 10/11/24 13:45 Consult to General Surgery Stat Comment: Consulting Provider: Ru Fabian 10/11/24 20:14 Health Equity Referral - Knowledge Deficit Routine Comment: Positive screening for knowledge deficit needs. [facility] Equity Referral - Nutrition Routine Comment: Positive screening for nutrition needs. Health Equity Referral - Transportation Routine Comment: Positive screening for transportation needs. 10/12/24 01:13 Referral Wound Care Routine Comment: 10/13/24 13:12 Referral Speech Therapy Routine Comment: Attending Provider on DC: Dennis Langford MD Discharging Provider: Dennis Langford MD DS: Diagnosis Problem List Completed Was Problem List Reviewed/Reconciled?: Yes Hospital Course Hospital Course Hospital course: 79-year-old female with past medical history of atrial fibrillation, hypertension, CAD, history of being anticoagulated with warfarin presented to the ED on 10/11 with shortness of breath and lower extremity swelling. On arrival patient's chest x-ray showed left base pneumonia along with some signs of pulmonary artery hypertension and vascular congestion. CT abdomen pelvis showed primary hepatocellular disease, adrenal nodules and possible acute calculus cholecystitis is which was later ruled out with HIDA scan. Chest CTA was negative for PE and head CT was negative. Patient was started on diuretic therapy for suspected congestive heart failure with preserved ejection fraction secondary to atrial fibrillation. During hospitalization, patient had teleneurology consulted due to having change in mentation but TOOL HARDENER findings were negative with imaging. Patient underwent left heart catheterization with cardiology which showed no significant obstructive coronary artery disease. [facility] with the following strict instructions. Please follow-up with your PCP within 1 week Please ask your PCP to follow-up regarding the adrenal nodules found on you left adrenal gland Please tell your PCP to refer you to a It Systems Engineer for elevated RVSP Please take Eliquis 2.5mg po BID for atrial fibrillation If your symptoms worsen or you develop new chest pain, shortness of breath or dizziness please come back to the ED immediately. Hospital Diagnosis: #Acute decompensated heart failure exacerbation, improved #Pulmonary arterial hypertension #Left-sided pneumonia, improved #Atrial fibrillation?long-term, persistent #Candidal Vulvovaginitis #Adrenal nodules #Hypertension #Failure to thrive #Concern for malnutrition #Multiple bruises Dennis Langford, PGY-1 Status at Discharge Overall status at discharge: patient is progressing back to baseline Time Spent with Patient Time attestation: Total time spent providing and/or coordinating discharge services: 45 minutes Time spent: Greater than 30 minutes Exam Vital Signs Temp Pulse Resp BP Pulse Ox O2 Del Method O2 Flow Rate 96.7 F L 97 20 109/71 93 L Room Air 1 10/16/24 08:00 10/16/24 08:00 10/16/24 08:00 10/16/24 08:00 10/16/24 08:00 10/16/24 08:00 10/16/24 07:41 Narrative Exam Physical Exam: GENERAL: Awake, answering questions appropriately, appears stated age HEENT: NC/AT. Moist mucosa. PERRLA. CARDIO: irregularly irregular, no obvious murmurs, no JVD. PULM: No coughing or visible SOB. Lungs CTA B/L. GI: Abdomen soft, NT/ND, +BS. URO/SECURITY SYSTEMS SPECIALIST: Improvement in vaginal erythema with mild erythema noted on b/l thighs SKIN/MSK/EXT: nonpitting edema b/l lower extremities. No wounds/discoloration/amputations noted. +Pedal pulses present B/L. NEURO: Oriented x2 (person and place - baseline), patient able to move extremities x4, no focal neurological deficits Discharge Plan Plan Patient Disposition: Xfer Skilled Nsg Fac (SNF) Care Plan Goals: Please follow-up with your PCP within 1 week Please ask your PCP to follow-up regarding the adrenal nodules found on you left adrenal gland Please tell your PCP to refer you to a It Systems Engineer for elevated RVSP Please take Eliquis 2.5mg po BID for atrial fibrillation If your symptoms worsen or you develop new chest pain, shortness of breath or dizziness please come back to the ED immediately. Prescriptions/Referrals Prescriptions/Med Rec: New docusate sodium 100 mg Capsule 100 mg PO PRN PRN (Reason: constipation) Qty: 30 0RF Eliquis 2.5 mg Tablet 2.5 mg PO BID Qty: 60 3RF clotrimazole [Antifungal (clotrimazole)] 1 % cream 1 applic topical BID 14 Days Qty: 15 0RF Rx Instructions: Apply to affected regions, only external use. Discontinued furosemide 40 MG tablet Qty: 0 bumetanide 2 MG tablet Qty: 0 potassium 99 MG tablet BID Qty: 0 warfarin [Coumadin] 2 MG tablet Qty: 0 digoxin 125 MCG tablet QDAY Qty: 0 Spironolact/Hydrochlorothiazid (Spironolact/Hctz 25/25 Tab) 1 TAB tablet Qty: 0 acetaminophen [Tylenol Extra Strength] 500 MG tablet 1 - 2 tab PO Q6HR PRN (Reason: PAIN) Qty: 30 0RF Referrals: No Primary/Family,Physician [Primary Care Provider] - Patient/Caregiver Discharge Instructions Education Materials: Cardiac Catheterization Dc, Preventing Surgical Site Infections, Procedural Sedation, Cardiac Cath Transradial Print Language: Hungarian Activity Restrictions/Additional Instructions: Please call to Schedule a follow up appointment with Dr. Kraus, (Check And Transfer Beader), to be seen in his office within one week upon discharge Address: [facility] [place] [id number]. Please call to schedule a follow up appointment with your primary care doctor 1- 2 weeks after discharge so he/she can make further recommendations about your overall health condition. DO NOT drive or operate any motor vehicle, heavy equipment, or machinery in the next 24 hours. DO NOT perform any activity that requires you to be fully alert in the next 24 hours. DO NOT sign any documentation in the next 24 hours that requires a full understanding of what you are signing for. Do not perform any strenuous physical activity in the next 5 days. Do not bend or twist your wrist for the next 3 days. Do no lift anything that weights equal or over 5 pounds with your right Arm/Hand within the next 3 days. Perform light activity only with your right Hand/Arm for the next 3 days. Do not strain your bowel. If you experience constipation, drink plenty of fluids, especially water, if not contraindicated by your doctor. In addition, add foods rich in fiber. Should you experience constipation, talk to your doctor about other options that might help you alleviate it. Keep your blood pressure under control. If you take blood pressure medication, continue to take it as prescribed, if not contraindicated by your doctor, doing so; helps to prevent post-complications such as bleeding. Take your new/previous medication as directed by the doctor. If there is no changes, continue to take medication at your usual time. After 3 days, start increasing the level of physical activity with your Hand/Arm gradually in the following 5 days. Look out for signs of infection such as tenderness, redness, or drainage to your right wrist. If any, report them to your primary care doctor immediately. You will go home with your right wrist covered by two different dressings, a clear dressing and a Coban wrap. The Coban wrap (Color Dressing on Top) must be removed in 24 hours after it was placed. The clear dressing (Dressing that is attached to your skin) Must be removed in 48 hours after it was placed. If you decide to shower or to take a bath, NOT RECOMMENDED IN THE FIRST 24 HOURS AFTER THE PROCEDURE; please keep dressing clean and dry by covering it. Or, if you prefer, take a sponge bath instead. After removing your dressing, you can gently clean your surgical site with soap and water and pad dry it. DO NOT rub site to prevent complication such as bleeding. DO NOT apply any lotions, creams, or powders on the surgical site until your s kin completely heals (5 days or more). Should you experience any type of complications such as pain, change in color, change in temperature, a bruise that increases in size and color, a lump (Hard or soft) that develops and increases in size, numbness, or loss of sensation in your Right arm/Wrist, Chest pain, or shortness of breath; PLEASE GO TO THE NEAREST EMERGENCY ROOM IMMEDIATELY. Should you have any other questions or concerns on regards today?s procedure; feel free to contact us to Pharmacy Technician Instructor . Please call to schedule a follow up appointment with your primary care doctor 1- 2 weeks after discharge so he/she can make further recommendations about your overall health condition. It is important to follow a heart healthy diet. Avoid saturated fat foods and food and drinks with added sugar. Eat a well-balanced diet with plenty of fresh fruits, vegetables and whole grains if not contraindicated by your primary care provider. Choose water to hydrate yourself over any other type of drinks. Talk to your primary doctor for further advice for a diet that fits your nutritional body requirements and for an adequate exercise program to keep and improve your overall health condition. ALWAYS FOLLOW/CONSIDER YOUR PRIMARY CARE DOCTOR'S MEDICAL ADVICE BEFORE MAKING ANY CHANGES TO YOUR DIET OR LEVEL OF ACTIVITY. Should you have any other questions or concerns on regards today?s procedure; feel free to contact us to Pharmacy Technician Instructor . Stand Alone Forms: Nicole Award Info., Patient Portal Info Letter Discharge Order Discharge Orders: Discharge (Routine); Ordered 10/16/24 Ordered By: Dennis Langford Quality Discharge Quality Measures VTE prophylaxis Attestestation Attestation I have discussed and was present for the essential components of the discharge history, physical examination, diagnosis, and discharge treatment plan with the resident. I agree with the patient's discharge care as documented by the resident and amended herein by me. Bartolo Cadet, . The patient understood all discharge instructions, all questions were answered satisfactorily. The patient was instructed to return to the Emergency Department is symptoms worsened or persisted. Patient was stable, afebrile and tolerating p.o. intake at time of discharge. Patient will need pulmonology follow-up as documented above for moderately elevated RVSP/pulmonary hypertension, patient will also need further workup by her primary care physician for incidentally found adrenal nodules on the left adrenal gland. Patient also will be started on Eliquis 2.5 mg twice daily per cardiology recommendations. Patient's son at bedside, all questions were answered. Although this document has been carefully reviewed, there may still be some phonetic and other typographical errors. These errors are purely grammatical due to imperfections in the software program and should not be construed in any way to compromise the substance of the patient's medical care during this visit.
--- NOTE | 2024-10-16 14:09 | PC.NURSE ---
Report given to receiving nurse Chyna at [facility].
--- NOTE | 2024-10-16 16:52 | ESPR_ITS ---
<Statement entered by Shane Kraus MD - 10/18/24 09:01> I personally examined the patient evaluated appears to be clinically doing fairly well does not complain of any chest pain or shortness of breath. Coronary angiogram showed no significant obstructive CAD continue medical management troponin elevation type II troponin elevation. Once the patient stable can be discharged to [facility] as she appears to be not able to take care of herself has decubitus ulcers. Documentation for date of: 10/16/24 Subjective Subjective Interval history: No overnight events. Patient seen examined at bedside. Patient very lethargic, required tactile stimulation to arouse. No chest pain, shortness of breath. Patient transitioned from heparin drip to oral Eliquis. Patient safe for discharge from cardiology perspective. Exam Vital Signs Temp Pulse Resp BP Pulse Ox O2 Del Method O2 Flow Rate 97.3 F 77 20 109/77 93 L Room Air 0 10/16/24 12:00 10/16/24 16:00 10/16/24 12:00 10/16/24 12:00 10/16/24 12:00 10/16/24 12:10/16/24 12:00 Narrative Exam PE: Gen: Well-developed and well-nourished. Thin. HEENT: NCAT, PERRLA, EOMI, MMM, anicteric conjunctivae. CVS: normal S1 and S2. No M/R/G. Irregular irregular rate. Resp: CTA B/L. No rhonchi, rales, crackles or wheezing. Abd: soft, non-tender, non-distended. MSK: Good ROM in BUE & BLE. No edema or rash. Neuro: CN II-XII grossly intact. Strength 5/5 in BUE & BLE. Alert and oriented x1. Lethargic. Psych: appropriate mood and affect. Objective Labs 10/16/24 04:34 10/16/24 04:34 Labs: Laboratory Results - last 24 hr 10/16/24 04:34 WBC 8.8 RBC 4.56 Hgb 13.7 Hct 41.6 MCV 91 MCH 30.0 MCHC 32.9 RDW Std Deviation 49.1 H Plt Count 212 Neut % (Auto) 71 Lymph % (Auto) 9 L Frederick % (Auto) 16 H Eos % (Auto) 3 Baso % (Auto) 0 Neut # (Auto) 6.2 Lymph # (Auto) 0.8 L Frederick # (Auto) 1.4 H Eos # (Auto) 0.3 Baso # (Auto) 0.0 Immature Gran # (Auto) 0.10 H Absolute Nucleated RBC 0.00 Immature Gran % 1 H Nucleated RBC % 0 Sodium 139 Potassium 3.4 Chloride 104 Carbon Dioxide 25.5 Anion Gap 10 BUN 13 Creatinine 0.7 Estim Creat Clear Calc 57.8 L eGFR > 60 BUN/Creatinine Ratio 19 Glucose 81 Calculated Osmolality 276 Calcium 9.5 Corrected Calcium 10.1 Total Bilirubin 1.5 H AST < 8 ALT 9 L Alkaline Phosphatase 49 Total Protein 5.4 L Albumin 3.2 L Globulin 2.2 L Albumin/Globulin Ratio 1.5 ABG Interpretation ABG results: 10/11/24 10/13/24 04:23 11:24 ABG pH 7.46 H 7.48 H ABG pCO2 35 52 H D ABG pO2 87 62 L D ABG HCO3 25 39 H ABG O2 Saturation 98 93 ABG Base Excess 1 13 H Quality Measures Quality Measures VTE prophylaxis Advance care planning discussed with:: patient and child Assessment & Plan Plan 79-year-old female with past medical history of atrial fibrillation, hypertension, coronary artery disease, remote hx of anticoagulation with warfarin presented due to shortness of breath, admitted for acute hypoxic respiratory failure secondary to CHF exacerbation along with superimposed pneumonia treated with IV antibiotics and found to have severe pulmonary arterial hypertension on echocardiography. #Atrial fibrillation, chronic, persistent EKG showed atrial fibrillation. [id number]: 5. -Eliquis 2.5 mg p.o. twice daily -Outpatient follow-up, consider rate control medication -Safe for discharge from cardiac perspective #Acute decompensated heart failure exacerbation, improved #Pulmonary arterial hypertension On presentation patient noted to have bilateral crackles and +2 pitting bilateral lower extremity edema. Chest x-ray shows prominent CHF pattern ECHO 10/11/2024 shows: LVEF 55%. Estimated RVSP, 83 mmHg. RAP 15. Severe biatrial dilation. Severe mitral annulus calcification with mild stenosis. Moderate MR and TR. Aortic valve sclerosis with mild to moderate aortic regurgitation. Pulmonary arterial hypertension likely group 2 versus group 4: Patient does not have any history of pulmonary disease. Left heart cath completed, no coronary obstructions, left ventricular ejection fraction 60%. -Lasix 40 mg twice daily -Strict I's and O's -Fluid restriction 1500 mL -Daily weights #Hypertension Patient currently normotensive Patient has not taken any medications for more than 7 years -IV diuretics restarted -Outpatient follow-up with PCP for medication reconciliation, annual exam and to establish care #Pneumonia #Acute encephalopathy, resolved #Metabolic alkalosis, resolved #Candidal Vulvovaginitis #Adrenal nodules #Failure to thrive #Concern for malnutrition #Multiple bruises Management as per primary team. Plan of care discussed with attending Dr. Kraus. Chetan Tesfaye MD PGY?1
== END 2024-10-16 16:09 | disposition skilled nursing facility (03) | DRG 280 ==
LOC: SERX 09:58 → SERHOLD 10-14 06:24 → S3SX 10-14 06:24
PROVIDERS: Emergency Medicine; Internal Medicine; Internal Medicine Cardiovascular Disease; Student in an Organized Health Care Education/Training Program; Admitting Provider Internal Medicine; Emergency Provider Emergency Medicine; Visit Provider Student in an Organized Health Care Education/Training Program
PROC: 4A023N7 Measurement of Cardiac Sampling and Pressure, Left Heart, Percutaneous Approach (ICD-10-PCS; principal; 2024-10-15 07:30)
DX: I11.0 Hypertensive heart disease with heart failure (principal); I50.33 Acute on chronic diastolic (congestive) heart failure; I21.A1 Myocardial infarction type 2; J96.01 Acute respiratory failure with hypoxia; J18.9 Pneumonia, unspecified organism; K80.00 Calculus of gallbladder with acute cholecystitis without obstruction; E87.3 Alkalosis; G93.49 Other encephalopathy; I48.19 Other persistent atrial fibrillation; I42.5 Other restrictive cardiomyopathy; I25.10 Atherosclerotic heart disease of native coronary artery without angina pectoris; I27.21 Secondary pulmonary arterial hypertension; H10.89 Other conjunctivitis; I08.3 Combined rheumatic disorders of mitral, aortic and tricuspid valves; F03.90 Unspecified dementia, unspecified severity, without behavioral disturbance, psychotic disturbance, mood disturbance, and anxiety; S50.312A Abrasion of left elbow, initial encounter; S80.12XA Contusion of left lower leg, initial encounter; S80.11XA Contusion of right lower leg, initial encounter; S50.812A Abrasion of left forearm, initial encounter; B37.31 Acute candidiasis of vulva and vagina; K42.9 Umbilical hernia without obstruction or gangrene; E27.8 Other specified disorders of adrenal gland; R62.7 Adult failure to thrive; Z68.26 Body mass index [BMI] 26.0-26.9, adult; Z79.01 Long term (current) use of anticoagulants; Z91.148 Patient's other noncompliance with medication regimen for other reason; Z79.899 Other long term (current) drug therapy; X58.XXXA Exposure to other specified factors, initial encounter
CPT/HCPCS: 36415; 36600; 70450; 71045; 71275; 72170; 73552; 74177; 76705; 78227; 78582; 80053; 80061; 80307; 81001; 82803; 83605; 83615; 83735; 83880; 84100; 84145; 84443; 84484; 85025; 85379; 85610; 85730; 87040; 87210; 87220; 87400; 87634; 87811; 92526; 92610; 93005; 93225; 93306; 93970; 94640; 94762; 96365; 96366; 96367; 96368; 96375; 96376; 97162; 99152; 99291; 99292; A4649; A9270; A9537; A9539; A9540; C1887; C1894; J0171; J0360; J0456; J0461; J0696; J1450; J1643; J1644; J1940; J2250; J2270; J2310; J2371; J2404; J2405; J2543; J2805; J2919; J3010; J3475; J3480; J3490; J7050; Q9967; J2305

== ENCOUNTER 2024-10-24 19:29 | Inpatient (IN) | payer MEDICARE, MEDICAID, SELFPAY ==
[2024-10-24] VITALS (9 sets, daily range): BP systolic 93–137; BP diastolic 53–80; PULSE 77–104; RESP 19–28; TEMP 36.4–38.3; O2SAT 95–99; BMI 35.4
--- NOTE | 2024-10-24 19:31 | EDNOTE_ITS ---
ED SOB =RME/HPI General Chief Complaint: Shortness of Breath/Dyspnea Stated Complaint: SHORTNESS OF BREATH Time Seen by Provider: 10/24/24 19:32 Arrival date/time: 10/24/24 19:29 RME / HPI RME / HPI Narrative: This section includes all my notes and documentations, including HPI, PE, and ED course. Earle Hardin MD HPI: 79yo female with a history of CAD, HTN, aFib, CHF BIBA from [facility] presents to the ED for a chief complaint of shortness of breath x tonight. Per EMS, patient was noted to be tachypneic and tachycardic on scene. They administered 2 albuterol treatments en route for bronchospasm with some improvement noted. No other complaints reported. ROS: All negative except as documented in HPI. Physical Exam: General: Patient is lethargic. Moderate respiratory distress noted. Fever and hypoxia noted. Eyes: Conjunctivae and lids clear. EOMI. PERRL. ENT: No nasal congestion. Neck: Supple. No carotid bruit. No JVD. Heart: RRR. Lungs: Moderate respiratory distress. Moderately decreased air movement with bilateral rails. Abdomen: Soft and nontender. Legs: No clubbing, cyanosis, edema. Skin: Warm and dry. Neuro: Patient is lethargic but oriented X 3. Cranial nerves II to XII grossly normal. No peripheral motor deficits. I reviewed all diagnostic test results. My interpretation of the EKG is sinus rhythm with no acute ST?T changes. My interpretation of the chest x-ray is increased vascular congestion. My review of the chest CT report is no PE. Blood tests and urine tests remarkable for WBC 26.2, D-dimer 1070, troponin 1.059, and BNP 615. ABG showed pH 7.48, pCO2 33, and pHCO3 25. At this point, diagnoses include respiratory failure, CHF, sepsis, and elevated troponin. Treatment here included IV fluid, Toradol, Rocephin, Tylenol, Lasix. Significant improvement not noted. I discussed the case with our hospitalist. About the presentation and exam and diagnostics and treatments here. And need of further care in the hospital. Will accept the patient. Earle Hardin MD Related Data Previous Rx's ?Medication ?Instructions ?Recorded apixaban 2.5 mg tablet (Eliquis) 2.5 mg PO BID #60 tab s 10/16/24 clotrimazole 1 % topical cream 1 applic topical BID 2 weeks #15 10/16/24 (Antifungal (clotrimazole)) grams docusate sodium 100 mg capsule 100 mg PO PRN PRN const ipation #30 10/16/24 caps Allergies Allergy/AdvReac Type Severity Reaction Status Date / Time No Known Allergies Allergy Unverified 10/11/24 11:51 Review of Systems Review of Systems Systems Reviewed: All systems reviewed, normal except as documented ED Exam Narrative Physical exam: As noted in HPI. Course Course Course Narrative: CXR is ordered for determining the etiology of shortness of breath. Quality Measures none Orders Category Date Time Status Admit to Inpatient Status Routine Admission 10/25/24 00:28 Active Patient Condition Routine Admission 10/25/24 00:28 Ordered Bedside COVID-19 Antigen Test NOW Care 10/24/24 19:53 Active Bedside COVID-19 Antigen Test NOW Care 10/25/24 00:47 Active Bedside Influenza A&B Antigen Test NOW Care 10/24/24 19:53 Completed COVID-19 Screening Questionnaire NOW Care 10/25/24 00:[address] Screening NOW Care 10/24/24 19:54 Active Decision to Admit X1 Care 10/25/24 00:01 Active EKG (ED ONLY) *Do not use* NOW Care 10/24/24 19:49 Completed EKG (ED ONLY) *Do not use* NOW Care 10/24/24 19:54 Completed Notify provider NEEDED Care 10/25/24 00:28 Active Obtain weight NOW Care 10/25/24 00:28 Active Saline [Insert IV] NOW Care 10/24/24 19:53 Active Straight [In and Out Catheter] X1 Care 10/24/24 19:53 Active Referral Registered Dietitian Routine Cons 10/25/24 00:[address] angio chest Stat Exams 10/24/24 19:54 Completed EKG (ED Only) Stat Exams 10/24/24 19:49 Ordered EKG (ED Only) Stat Exams 10/24/24 19:54 Ordered US venous doppler LE BI Stat Exams 10/25/24 00:36 Ordered XR chest 1V portable Stat Exams 10/24/24 19:54 Completed ABG [Arterial Blood Gas] Stat Lab 10/24/24 21:00 Completed BNP [B-Type Natriuretic Peptide] Stat Lab 10/24/24 20:25 Completed Blood Culture (Lab) Stat Lab 10/24/24 20:22 Received CBC AM DRAW Lab 10/25/24 05:00 Ordered CBC AM DRAW Lab 10/26/24 05:00 Ordered CBC AM DRAW Lab 10/27/24 05:00 Ordered CBC AM DRAW Lab 10/28/24 05:00 Ordered CBC Stat Lab 10/24/24 20:25 Completed CMP [Comprehensive Metabolic Panel] AM DRAW Lab 10/25/24 05:00 Ordered CMP [Comprehensive Metabolic Panel] AM DRAW Lab 10/26/24 05:00 Ordered CMP [Comprehensive Metabolic Panel] AM DRAW Lab 10/27/24 05:00 Ordered CMP [Comprehensive Metabolic Panel] AM DRAW Lab 10/28/24 05:00 Ordered CMP [Comprehensive Metabolic Panel] Stat Lab 10/24/24 20:25 Completed D-Dimer Stat Lab 10/24/24 20:25 Completed Lactate (Lactic Acid) Stat Lab 10/24/24 20:25 Completed Magnesium AM DRAW Lab 10/25/24 05:00 Ordered Magnesium AM DRAW Lab 10/26/24 05:00 Ordered Magnesium AM DRAW Lab 10/27/24 05:00 Ordered Magnesium AM DRAW Lab 10/28/24 05:00 Ordered Magnesium Stat Lab 10/24/24 20:25 Completed Phosphorous AM DRAW Lab 10/25/24 05:00 Ordered Phosphorous AM DRAW Lab 10/26/24 05:00 Ordered Phosphorous AM DRAW Lab 10/27/24 05:00 Ordered Phosphorous AM DRAW Lab 10/28/24 05:00 Ordered RSV [Respiratory Syncytial Virus Ag] Stat Lab 10/24/24 21:55 Completed TSH [Thyroid Stimulating Hormone] Stat Lab 10/24/24 20:25 Completed Troponin I Q6H Lab 10/25/24 02:00 Ordered Troponin I Q6H Lab 10/25/24 08:00 Ordered Troponin I Q6H Lab 10/25/24 14:00 Ordered Troponin I Stat Lab 10/24/24 20:25 Completed UA, C/S IF [Urinalysis, C/S if Indicated] Stat Lab 10/24/24 22:30 Completed Acetaminophen Ivpb [Ofirmev Inj] Med 10/24/24 20:37 Discontinued 1,000 mg in 100 ml IV NOW Acetaminophen Tab [Tylenol Tab] Med 10/25/24 00:28 Active 650 mg PO Q6H PRN Acetaminophen Tab [Tylenol Tab] Med 10/25/24 00:28 Active 650 mg PO Q6H PRN Apixaban [Eliquis] Med 10/25/24 09:00 Ordered 2.5 mg PO BID Clotrimazole Vag Cr 1% [Lotrimin Vag Cr 1%] Med 10/25/24 09:00 Active See Dose Instructions VAGINAL BID Furosemide Inj [Lasix Inj] Med 10/24/24 21:32 Discontinued 40 mg IVP X1 ONE Ketorolac Inj [Toradol Inj] Med 10/24/24 20:37 Discontinued 7.5 mg IVP X1 ONE MethylPREDNISolone.* [SoluMEDROL Inj] Med 10/24/24 19:53 Discontinued 125 mg IVP X1 ONE Morphine Inj Med 10/24/24 21:32 Discontinued 2 mg IVP X1 ONE Nitroglycerin Oint 2% [Nitro-paste Oint 2%] Med 10/24/24 21:32 Discontinued 1 inch TOP X1 ONE Ondansetron Inj [Zofran Inj] Med 10/25/24 00:28 Active 4 mg IV Q6H PRN Pantoprazole Inj [Protonix Inj] Med 10/25/24 09:00 Active 40 mg IVP QDAY cefTRIAXone [Rocephin] 1,000 mg Med 10/24/24 20:37 Discontinued Sodium Chloride 0.9% (P) [Ns 0.9% (P)] 50 ml IV X1 Code Status Routine Oth 10/25/24 00:28 Ordered Vital Signs Vital signs: Vital Signs Temperature 97.6 F 10/24/24 19:41 Pulse Rate 104 H 10/24/24 19:41 Respiratory Rate 20 10/24/24 19:41 Blood Pressure 137/80 H 10/24/24 19:41 Pulse Oximetry (%) 98 10/24/24 19:41 Oxygen Delivery Method Aerosol Mask 10/24/24 19:41 Shortness of Breath / Dyspnea MDM Narrative MDM Narrative:: Scribe Attestation: 10/24/24 - Jeannie Valentin am scribing for and in the presence of Dr. Hardin. Patient data External records reviewed:: [facility] previous records (Per chart review, patient was admitted here on 10/11/24 for acute respiratory failure.) Clinical information provided by:: EMS Social determinants that could affect healthcare access:: housing (SNF resident) Patient has the following chronic illnesses:: CAD, HTN, aFib, CHF How is presenting disease/condition affected by chronic disease/condition?: exacerbated by Evaluation data The following diagnostics were reviewed and interpreted by me:: lab results, radiology exam(s) and EKG tracing(s) Lab and/or radiology exams considered but not ordered:: none Interpretation Summary: Respiratory failure, sepsis, CHF, elevated troponin Medications / Prescriptions Medications or Prescriptions considered but not ordered:: none Medication administrations:: Medication Administration History Acetaminophen (Acetaminophen 325 Mg Tablet) 650 mg PO Q6H PRN PRN Reason: PAIN SCALE 1-3 (mild Stop: 11/24/24 00:27 Acetaminophen (Acetaminophen 325 Mg Tablet) 650 mg PO Q6H PRN PRN Reason: Fever >100.4 Stop: 11/24/24 00:27 Apixaban (Apixaban 2.5 Mg Tablet) 2.5 mg PO BID CRYSTAL Stop: 11/24/24 08:59 Clotrimazole (Clotrimazole Vag Cr 1% 45 Gm Tube) 0 gm VAGINAL BID CRYSTAL Stop: 11/28/24 08:59 Ondansetron HCl (Ondansetron Inj 2 Mg/Ml Inj 2 Ml) 4 mg IV Q6H PRN; Protocol PRN Reason: NAUSEA OR VOMITING Stop: 11/24/24 00:27 Pantoprazole Sodium (Pantoprazole Inj 40 Mg Vial) 40 mg IVP QDAY CRYSTAL Stop: 11/24/24 08:59 Discontinued Medications Furosemide (Furosemide Inj 10 Mg/Ml 4ml Vial) 40 mg IVP X1 ONE Stop: 10/24/24 21:33 Last Admin: 10/24/24 23:52 Dose: 40 mg Documented By: DANIEL Acetaminophen (Ofirmev Inj) 1,000 mg in 100 mls @ 250 mls/hr IV NOW ONE Stop: 10/24/24 21:00 Last Infusion: 10/24/24 21:22 Dose: Infused Documented By: Admin: 10/24/24 20:50 Dose: 250 mls/hr Documented By: DANIEL Ceftriaxone Sodium 1,000 mg/ (Sodium Chloride) 50 mls @ 100 mls/hr IV X1 ONE Stop: 10/24/24 21:06 Last Infusion: 10/24/24 21:23 Dose: Infused Documented By: Admin: 10/24/24 20:49 Dose: 100 mls/hr Documented By: DANIEL Ketorolac Tromethamine (Ketorolac Inj 30 Mg/Ml Vial) 7.5 mg IVP X1 ONE Stop: 10/24/24 20:38 Last Admin: 10/24/24 20:51 Dose: 7.5 mg Documented By: DANIEL Methylprednisolone Sodium Succinate (Methylprednisolone Sod Succ 62.5 Mg/Ml 2ml Vial) 125 mg IVP X1 ONE Stop: 10/24/24 19:54 Last Admin: 10/24/24 20:51 Dose: 125 mg Documented By: DANIEL Morphine Sulfate (Morphine Sulf Inj 10 Mg/Ml Vial) 2 mg IVP X1 ONE Stop: 10/24/24 21:33 Nitroglycerin (Nitroglycerin Oint 2% 1 Inch Packet) 1 inch TOP X1 ONE Stop: 10/24/24 21:33 Toradol, Rocephin, Tylenol, Lasix Consultations Consultation(s) initiated? (list below): No Diagnosis Shortness of Breath Differential Diagnosis: acute exacerbation of chronic obstru ctive airways disease, congestive heart failure, community acquired pneumonia, asthma with exacerbation and pulmonary embolism Most likely diagnosis given after review of the tests above:: Respiratory failure, CHF, sepsis, elevated troponin Admission Indicated Admission indicated?: indicated Explain why admission is indicated or not indicated:: Respiratory failure, CHF, sepsis, elevated troponin Admission Request Was there a request for admission?: Yes Admission Attestation Admission request attestation: Discussed case with Hospitalist service regarding admission. Discussed patients ED course, exam findings, labs, and radiology results. The Hospitalist [agrees] to accept the patient for admission. Disposition Plan Disposition Plan: Admit Critical Care Time Critical Care Time Critical Care Time: Yes Total Critical Care Time (min.): 36 Attestation: Due to a high probability of clinically significant, life threatening deterioration, the patient required my highest level of preparedness to intervene emergently and I personally spent this critical care time directly and personally managing the patient. This critical care time included obtaining a history; examining the patient; ordering and review of studies; arranging urgent treatment with development of a management plan; evaluation of patient's response to treatment; frequent reassessment; and discussions with family and other providers. It was exclusive of separately billable procedures and treating other patients and teaching time. Earle Hardin MD Discharge Plan Plan Patient Disposition: Admit Acute Care w/in Hospital Prescriptions/Referrals Prescriptions/Med Rec: No Action docusate sodium 100 mg Capsule 100 mg PO PRN PRN (Reason: constipation) Qty: 30 0RF Eliquis 2.5 mg Tablet 2.5 mg PO BID Qty: 60 3RF clotrimazole [Antifungal (clotrimazole)] 1 % cream 1 applic topical BID 14 Days Qty: 15 0RF Rx Instructions: Apply to affected regions, only external use. Referrals: Shane Kraus MD [Primary Care Provider] - In 1 week Problem List Clinical Impression: Acute respiratory failure with hypoxia, CHF (congestive heart failure), Sepsis, Elevated troponin Patient/Caregiver Discharge Instructions Print Language: Greenlandic Stand Alone Forms: Nicole Award Info., Patient Portal Info Letter
--- NOTE | 2024-10-24 19:54 | XR_ITS ---
Examination: AP chest single view Technique one AP portable semiupright chest single view Exam date and time: October 24, 20241958 hrs. Comparison October 14, 2024 Indications: Onset shortness of breath today Findings: Mild to moderate CHF Moderate enlargement cardiac contour Prominent central vascular congestion with perihilar basilar edema Significant osteopenia Impression: Mild to moderate CHF
--- NOTE | 2024-10-24 19:54 | XR_ITS ---
Examination: CTA chest with intravenous contrast 2-D reconstructions 3-D reconstructions, vascular Date and time of exam: October 24, 2024 1050 hrs. Indications: Stroke alert, onset focal neurologic deficit, numbness in the right and left arm and leg CTDI: vol (mGy) 50.9 DLP: (mGycm) 1004 Technique: Multiple axial sections of the thorax have been obtained. 3 mm slice thickness, from below the hemidiaphragms to above the apices of the lungs. Mediastinal and lung density settings have been obtained. 2-D sagittal and coronal reconstructions. 3-D angiographic renderings, 3-D volume renderings, 3D post processing, vascular maximum intensity projections obtained. Contrast administered is 100 cc Isovue-370 intravenous. Low dose protocols were performed. One or more of the following dose reduction techniques were used; automated exposure control, adjustment of the mA and/or KV according to patient size, use of iterative reconstruction technique. Findings: Mild enlargement cardiac contour Pulmonary artery segment 49 mm No pulmonary artery emboli No mediastinal lymphadenopathy Minor atelectasis in No pneumonia or pulmonary edema Retrocardiac gastric hernia No visualized liver or splenic lesion 20 mm fat-containing left adrenal nodule Impression: Pulmonary artery hypertension Negative for pulmonary artery emboli
--- NOTE | 2024-10-24 19:59 | PC.NURSE ---
report recieved from [facility] appears in mild resp distress.
[2024-10-24] MEDS: cefTRIAXone 1,000 MG in SODIUM CHLORIDE 0.9% (P) 50 ML 100 MG IV (20:49)
[2024-10-24 20:50] LABS: Lactate (Lactic Acid) 1.5 mMol/L (0.4-2.0)
[2024-10-24] MEDS: ACETAMINOPHEN IVPB 1,000 MG/100 ML VIAL 250 MG IV (20:50)
[2024-10-24] MEDS: KETOROLAC INJ 30 MG/ML VIAL 7.5 MG IVP (20:51)
[2024-10-24] MEDS: MethylPREDNISolone SOD SUCC 62.5 MG/ML 2ML VIAL 125 MG IVP (20:51)
[2024-10-24 21:02] LABS: Basophils # (Auto) 0.1 Thou/mm3 (0.0-0.2); Basophils % (Auto) 0 % (0-2.5); Eosinophils # (Auto) 0.1 Thou/mm3 (0.0-0.5); Eosinophils % (Auto) 0 % (0-10); Hematocrit 37.8 % (36.0-46.0); Hemoglobin 12.9 g/dL (12.0-16.0); Immature Granulocytes % (Auto) 1 % (0-0); Immature Granulocytes Auto 0.27 Thou/mm3 (0.00-0.00); Lymphocytes # (Auto) 1.1 Thou/mm3 (1.0-4.8); Lymphocytes % (Auto) 4 % (10-50); Mean Corpuscular HGB Conc 34.1 g/dl (31.0-37.0); Mean Corpuscular Hemoglobin 30.7 pg (25.0-35.0); Mean Corpuscular Volume 90 fL (80-100); Monocytes % (Auto) 7 % (0-12); Neutrophils # (Auto) 22.7 Thou/mm3 (1.8-7.7); Neutrophils % (Auto) 87 % (37-80); Nucleated Red Blood Cell % 0 /100 WBC (0); Platelet Count 219 Thou/mm3 (140-440); RDW Standard Deviation 49.6 fL (36.4-46.3); White Blood Count 26.2 Thou/mm3 (3.6-11.0)
[2024-10-24 21:05] LABS: Base Excess 2 (-3-3); HCO3 25 mEq/L (20-26); Inspired Oxygen, FIO2 21 %; O2 Saturation 95 % (91-98); PCO2 33 mmHg (32.0-48.0); PO2 67 mmHg (83-108); pH, Arterial 7.48 (7.35-7.45)
[2024-10-24 21:07] LABS: Allen Test Performed/OK; Puncture Site Left Brachial
[2024-10-24 21:20] LABS: Alanine Aminotransferase 27 U/L (10-49); Albumin, Serum 3.6 gm/dL (3.4-4.8); Albumin/Globulin Ratio 1.6 (1.2-2.2); Alkaline Phosphatase 85 U/L (46-116); Anion Gap 7 (7-16); Aspartate Amino Transferase 21 U/L (0-34); B-Type Natriuretic Peptide 615 pg/mL (0-100); BUN/Creatinine Ratio 33 Ratio (12-20); Bilirubin,Total 1.2 mg/dL (0.3-1.2); Blood Urea Nitrogen 20 mg/dL (9-23); Calcium (Corrected) 10.3 mg/dL (8.5-10.1); Carbon Dioxide 24.6 mMol/L (20.0-31.0); Chloride 110 mMol/L (98-107); Creatinine (Component) 0.6 mg/dL (0.6-1.3); Globulin 2.3 gm/dL (2.3-3.5); Glucose 107 mg/dL (74-106); Magnesium 1.6 mg/dL (1.6-2.6); Osmolality,Calculated 285 (275-295); Potassium 3.8 mMol/L (3.4-5.1); Sodium 142 mMol/L (136-145); Thyroid Stimulating Hormone 1.54 uIU/mL (0.55-4.78); Total Protein 5.9 gm/dL (5.7-8.2); eGFR > 60 See Note
[2024-10-24 21:23] LABS: Troponin I 1.059 ng/mL (0.0-0.045)
[2024-10-24 22:22] LABS: D-Dimer 1070 ng/mL (<600)
[2024-10-24 22:48] LABS: Collection Type, Urine Clean Catch
[2024-10-24 23:03] LABS: Bilirubin,Urine Negative (Negative); Blood,Urine Negative (Negative); Clarity,Urine Clear (Clear/Hazy); Color,Urine Yellow (Lt Yel-Yel); Culture Indicated,Urine Not Indicated; Glucose, Urine Negative (Negative); Ketones,Urine Negative (Negative); Leukocyte Esterase,Urine Negative (Negative); Nitrite,Urine Negative (Negative); PH,Urine 5.5 (5.0-7.0); Protein,Urine Trace (Neg - Trace); RBC,Urine 1 /hpf (0-3); Specific Gravity,Urine 1.033 (1.001-1.035); Squamous Epithelial Cell,Urine 1 /hpf (0-5); Urobilinogen,Urine Negative mg/dL (0.0-1.0); WBC,Urine 2 /hpf (0-5)
[2024-10-24 23:38] LABS: Respiratory Syncytial Virus Ag Negative (Negative)
[2024-10-24] MEDS: FUROSEMIDE INJ 10 MG/ML 4ML VIAL 40 MG IVP (23:52)
[2024-10-25] VITALS (12 sets, daily range): BP systolic 90–106; BP diastolic 53–73; PULSE 59–94; RESP 16–20; TEMP 36.2–36.7; O2SAT 95–99; BMI 23.7; BMI 35.4
--- NOTE | 2024-10-25 00:28 | ESHP_ITS ---
Documentation for date of: 10/25/24 HPI History of Present Illness History of present illness: This is an 79-year-old female PMHx of A-fib, HTN, CAD, chronic encephalopathy, unspecified heart failure, pulmonary hypertension, coming from [facility] with shortness of breath x 1 day. She was noted to be short of breath and had difficulty breathing during rounds earlier that day. Currently she was desatting in 80s. EMS noted patient was tachycardic and tachypneic on arrival. Remainder of history is limited. She was drowsy and difficult to awaken on exam, thus unable to participate with exam. Per EMS signout, this seems to be her baseline. Records from SNF showed chronic encephalopathy. He was able to answer to the following questions and denied fever, chills, headaches, shortness of breath, abdominal pain, N/V/D/C, dysuria, urinary urgency or frequency. ED COURSE: Tmax 101.0, RR 20, HR 104, BP 137/80, satting 98% on 2L NC. WBC 26.2 with left shift, otherwise CBC WNL. D-dimer 1070, INR/PT pending. ABG showed pH 7.48, pCO2 33, PaO2 67, bicarb 25. UA negative for UTI. Remarkable for calcium 10.3, troponin 1.059, BNP 615. EKG shows A-fib, HR 96, no acute ST changes. CXR showed mild to moderate CHF. CT chest showed pulmonary hypertension, no pulmonary embolism. PMHx: A-fib, HTN, CAD, encephalopathy, unspecified heart failure, pulmonary hypertension. PSHx: None MEDS: ELIQUIS 2.5 mg daily, PROTOSTAT oral liquid, CLOTRIMAZOLE vaginal 1% cream, bowel regiment. ALLERGIES: NKA FHx: Unable to obtain. SH: Denies tobacco, drug or alcohol use Exam Vital Signs Temp Pulse Resp BP Pulse Ox O2 Del Method O2 Flow Rate 98.0 F 77 19 102/59 L 96 Nasal Cannula 2 10/24/24 23:54 10/24/24 23:52 10/24/24 23:44 10/24/24 23:52 10/24/24 23:44 10/24/24 23:44 10/24/24 23:44 Narrative Exam GENERAL * Obtunded, difficult to arose, A&O X2. HEENT * NCAT.?LUIGI. Oral mucosa is moist. Patent Nares NECK * Supple, nontender, no thyromegaly, no meningismus, no JVD, no step offs CHEST * Tachycardic, regular rhythm, loud systolic murmur, no gallop. * CTAB, no w/r/r. Symmetrical chest rise. No intercostal subcostal retraction * Atraumatic, nontender, no crepitus, symmetrical expansion. ABDOMEN * Soft, flat, nontender. No guarding/rebound tenderness/masses. * Bowel sounds presents EXTREMITIES * Nontender, no cyanosis, no edema * Trace kerry LE edema SKIN * Warm and dry, no jaundice/rashes. NEUROMUSCULAR (limited exam) * No lumbar or midline, no CVA, no paraspinal muscle spasm or tenderness. * Moves all 4 extremities well, with full ROM and good CSM. * No focal neurolgical deficits PSYCHIATRY * Cooperative, no SI or HI or hallucinations. Results: Labs 10/25/24 03:08 10/24/24 20:25 Labs: Short CBC 10/24/24 Range/Units 20:25 WBC 26.2 H (3.6-11.0) Thou/mm3 Hgb 12.9 (12.0-16.0) g/dL Hct 37.8 (36.0-46.0) % Plt Count 219 (140-440) Thou/mm3 BMP 10/24/24 20:25 Sodium 142 Potassium 3.8 Chloride 110 H Carbon Dioxide 24.6 BUN 20 Creatinine 0.6 Glucose 107 H Calcium 10.0 Cardiac Enzymes 10/24/24 Range/Units 20:25 Troponin I 1.059 H* (0.0-0.045) ng/mL Liver Function 10/24/24 Range/Units 20:25 Total Bilirubin 1.2 (0.3-1.2) mg/dL AST 21 (0-34) U/L ALT 27 (10-49) U/L Alkaline Phosphatase 85 (46-116) U/L Albumin 3.6 (3.4-4.8) gm/dL Urine 10/24/24 Range/Units 22:30 Urine Color Yellow (Lt Yel-Yel) Urine Clarity Clear (Clear/Hazy) Urine pH 5.5 (5.0-7.0) Ur Specific [place] 1.033 (1.001-1.035) Urine Protein Trace (Neg - Trace) Urine Glucose (UA) Negative (Negative) ABG Interpretation ABG results: 10/24/24 21:00 ABG pH 7.48 H ABG pCO2 33 ABG pO2 67 L ABG HCO3 25 ABG O2 Saturation 95 ABG Base Excess 2 Quality Measures Quality Measures none Advance care planning discussed with:: patient Medications Home Medications and Allergies Allergies Allergy/AdvReac Type Severity Reaction Status Date / Time No Known Allergies Allergy Unverified 10/11/24 11:51 Visit Medications Discontinued Medications Furosemide (Furosemide Inj 10 Mg/Ml 4ml Vial) 40 mg IVP X1 ONE Stop: 10/24/24 21:33 Last Admin: 10/24/24 23:52 Dose: 40 mg Acetaminophen (Ofirmev Inj) 1,000 mg in 100 mls @ 250 mls/hr IV NOW ONE Stop: 10/24/24 21:00 Last Infusion: 10/24/24 21:22 Dose: Infused Ceftriaxone Sodium 1,000 mg/ (Sodium Chloride) 50 mls @ 100 mls/hr IV X1 ONE Stop: 10/24/24 21:06 Last Infusion: 10/24/24 21:23 Dose: Infused Ketorolac Tromethamine (Ketorolac Inj 30 Mg/Ml Vial) 7.5 mg IVP X1 ONE Stop: 10/24/24 20:38 Last Admin: 10/24/24 20:51 Dose: 7.5 mg Methylprednisolone Sodium Succinate (Methylprednisolone Sod Succ 62.5 Mg/Ml 2ml Vial) 125 mg IVP X1 ONE Stop: 10/24/24 19:54 Last Admin: 10/24/24 20:51 Dose: 125 mg Morphine Sulfate (Morphine Sulf Inj 10 Mg/Ml Vial) 2 mg IVP X1 ONE Stop: 10/24/24 21:33 Nitroglycerin (Nitroglycerin Oint 2% 1 Inch Packet) 1 inch TOP X1 ONE Stop: 10/24/24 21:33 Assessment & Plan Plan In summary: 79-year-old female PMHx of A-fib, HTN, CAD, chronic encephalopathy, unspecified heart failure, pulmonary hypertension, admitted for acute hypoxic respiratory failure. AHRF CHF exacerbation Early PNA? 4/4 SIRS PAH and CHF EF 55% from Sep 2024 Found desatting in 80s and tachypneic at SNF during rounds on the morning of admission. Met 4/4 SIRS criteria on admission, tachypnea and tachycardia improved since. WBC 26.2, Tmax 101, BNP 615. CXR showed mild to moderate CHF, no pneumonia. CT chest showed pulmonary hypertension, no pulmonary embolism. Clear lung sounds on exam, but had trace bilateral lower extremity edema. Currently satting well on 3L NC. Negative COVID, influenza A/B. May have early pneumonia, unable to be seen on imaging, especially even leukocytosis and fever. Unable to clearly assess for symptoms given current mental status, although she did not cough. Will treat for both CHF and PNA and adjust treatment as indicated. ? Continue CEFTRIAXONE (10/25 to present) ? Continue DOXYCYCLINE (10/25 to present) ? Continue DuoNebs q.6h. ? Gentle diuresis with LASIX 20 mg IV daily ? Fluid restrictions ? Pending PRO-LANCE, MRSA ? Pending blood, sputum culture Respiratory alkalosis Chronic secondary metabolic alkalosis ABG showed pH 7.48, pCO2 33, PaO2 67, bicarb 25. Likely secondary to hypoxemia and tachypnea. ? Treating underlying cause as able. Acute on chronic encephalopathy She was drowsy, difficult to awaken, likely secondary to AHRF. Low suspicion for stroke. No focal neurological deficits. ? Close monitoring ? Consider CT head if symptoms worsen ? Physical therapy when able Afib Elevated troponin Likely NSTEMI type 2, demand ischemia in setting of hypoxemia. EKG shows A-fib, HR 96, no acute ST changes. [id number] score 5 ? Continue home ELIQUIS 2.5 mg BID ? Trending troponin Elevated d-dimer Likely in setting of NSTEMI type 2 as above. CTA negative for PE. Venous Doppler negative for DVT bilaterally. ? Pending coag studies HTN Currently normotensive. ? Start ANTIHYPERTENSIVE as indicated. Fungal Vulvovaginitis ? Continue home CLOTRIMAZOLE topical BID Chronic malnutrition On home PROTOSTAT 30 mg oral liquid. ? Consult wildland fire fighter Health maintenance Diet: NPO, pending swallow eval GI prophylaxis: PROTONIX DVT prophylaxis: ELIQUIS Antibiotics: DOXY, CTX CODE STATUS: Full code Disposition: Treating AHRF Patient case was discussed with attending, Jhony Calero MD. Violet Aguirre DO PGYI Attending Provider Attestation/Addendum 79-year-old female with pulmonary hypertension, atrial fibrillation, coronary artery disease, chronic encephalopathy was admitted for acute hypoxia. She received IV antibiotic for possible pneumonia. The patient is drowsy to lethargic. She has chronic encephalopathy per report. The patient is on Eliquis for A-fib.
--- NOTE | 2024-10-25 00:36 | XR_ITS ---
Examination: Venous duplex lower extremity sonogram, bilateral. Date and time of exam: October 25, 2024 at 0125 hrs. Indications: Bilateral leg pain this week Technique: Multiple sonographic images of the deep venous system have been obtained. B-mode/2-D grayscale imaging of vascular structures and Doppler spectral analysis (waveforms) and color performed Both legs are examined. Findings: Deep venous systems do not demonstrate abnormal echogenicity. All visualized deep veins exhibit compressibility. All visualized deep veins exhibit augmentation. Impression: Negative for deep vein thrombosis
--- NOTE | 2024-10-25 02:39 | PRELIM_ITS ---
Bilateral lower extremity venous Doppler ultrasound with wave Doppler spectral analysis. October 25, 2024 0125 hours Clinical history: Rule out deep vein thrombosis Technique: Duplex scan of the bilateral lower extremity deep venous systems was performed utilizing 2D grayscale imaging, Doppler spectral analysis and color flow Doppler and with compression. Comparison: None. Findings: The evaluation is limited due to patient movements. Fernandez scale, color flow and spectral Doppler evaluation of the lower extremity deep veins was performed. Right: The common femoral, superficial femoral and popliteal veins are patent and compressible. Normal respiratory variation is noted. There is no evidence of occlusive or nonocclusive thrombus. The great saphenous vein is patent at the level of the saphenofemoral junction Left: The common femoral, superficial femoral and popliteal veins are patent and compressible. Normal respiratory variation is noted. There is no evidence of occlusive or nonocclusive thrombus. The great saphenous vein is patent at the level of the saphenofemoral junction. Impression: No sonographic evidence of deep venous thrombosis in both lower extremities. Report Electronically Signed By: Syed Velasquez 10/25/2024 2:37:51 AM [EST]
[2024-10-25 03:25] LABS: Basophils % (Auto) 0 % (0-2.5); Eosinophils % (Auto) 0 % (0-10); Hematocrit 37.5 % (36.0-46.0); Hemoglobin 12.6 g/dL (12.0-16.0); Immature Granulocytes % (Auto) 1 % (0-0); Immature Granulocytes Auto 0.21 Thou/mm3 (0.00-0.00); Lymphocytes # (Auto) 0.5 Thou/mm3 (1.0-4.8); Lymphocytes % (Auto) 2 % (10-50); Mean Corpuscular HGB Conc 33.6 g/dl (31.0-37.0); Mean Corpuscular Hemoglobin 30.4 pg (25.0-35.0); Mean Corpuscular Volume 90 fL (80-100); Monocytes # (Auto) 0.2 Thou/mm3 (0.0-0.8); Monocytes % (Auto) 1 % (0-12); Neutrophils # (Auto) 22.4 Thou/mm3 (1.8-7.7); Neutrophils % (Auto) 96 % (37-80); Nucleated Red Blood Cell % 0 /100 WBC (0); Platelet Count 214 Thou/mm3 (140-440); RDW Standard Deviation 50.7 fL (36.4-46.3); Red Blood Count 4.15 Miln/mm3 (4.00-5.20); White Blood Count 23.4 Thou/mm3 (3.6-11.0)
--- NOTE | 2024-10-25 03:50 | PC.NURSE ---
Pt sleeping. Arouses easily but quickly falls asleep.
--- NOTE | 2024-10-25 05:30 | PC.RT ---
Addendum entered by Jaqueline Villa RCP 10/25/24 05:35: Per Dr. Timothy pedersen an attempt to collect if possible but is fine if we are not able to obtain sample at this time. Original Note: RT in room to collect sputum sample, pt has weak cough effort. Dr. Aguirre was informed of pt lethargy and inability to produce sample.
[2024-10-25 06:19] LABS: Alanine Aminotransferase 26 U/L (10-49); Albumin, Serum 3.4 gm/dL (3.4-4.8); Albumin/Globulin Ratio 1.6 (1.2-2.2); Alkaline Phosphatase 79 U/L (46-116); Anion Gap 7 (7-16); Aspartate Amino Transferase 16 U/L (0-34); BUN/Creatinine Ratio 27 Ratio (12-20); Bilirubin,Total 1.3 mg/dL (0.3-1.2); Blood Urea Nitrogen 19 mg/dL (9-23); Calcium 9.6 mg/dL (8.3-10.6); Calcium (Corrected) 10.1 mg/dL (8.5-10.1); Carbon Dioxide 23.8 mMol/L (20.0-31.0); Chloride 109 mMol/L (98-107); Creatinine (Component) 0.7 mg/dL (0.6-1.3); Estimated Creatinine Clearance 68.5 mL/min (>60); Globulin 2.1 gm/dL (2.3-3.5); Glucose 142 mg/dL (74-106); Magnesium 1.7 mg/dL (1.6-2.6); Osmolality,Calculated 283 (275-295); Phosphorous 3.6 mg/dL (2.4-5.1); Potassium 4.1 mMol/L (3.4-5.1); Procalcitonin 0.29 ng/ml (0.0-0.49); Sodium 140 mMol/L (136-145); Total Protein 5.5 gm/dL (5.7-8.2); eGFR > 60 See Note
[2024-10-25 06:20] LABS: Troponin I 0.944 ng/mL (0.0-0.045)
[2024-10-25] MEDS: PIPER/TAZO INJ 4.5 GM in SODIUM CHLORIDE 0.9% (P) 100 ML IV (06:35)
[2024-10-25 06:37] LABS: C-Reactive Protein 7.2 mg/dL (0.0-0.9)
[2024-10-25 08:25] LABS: Sed Rate (ESR) 12 mm/hr (0-30)
[2024-10-25] MEDS: ALBUTEROL/IPRATROPIUM (Duoneb) RT SOL 3 ML NEBU INH ×2 (08:43→18:10)
--- NOTE | 2024-10-25 09:45 | XR_ITS ---
Examination: CT abdomen and pelvis without contrast. Coronal 3-D reconstructions. Sagittal 2-D reconstructions. Date and time of exam:October 25, 2024 at 1017 hours INDICATIONS: Abdominal tenderness and pain today CTDI: vol (mGy): 9.1 DLP: (mGycm): 11 Technique: Axial images of the abdomen have been obtained, 3 mm slice thickness Intravenous contrast material has not been administered. Low dose protocols were performed. One or more of the following dose reduction techniques were used; automated exposure control, adjustment of the mA and/or KV according to patient size, use of iterative reconstruction technique. Findings: Marked enlargement cardiac contour Mitral valvular calcification Large retrocardiac gastric hernia Liver is irregular in contour, no focal liver lesions Multiple gallstones Spleen is not enlarged Fat-containing left adrenal nodule 20 mm Contrast in the kidneys from the patient's CT angiogram yesterday No hydronephrosis Aorta normal size Normal appendix Umbilical hernia defect 4 cm containing bowel but no incarcerated bowel No bowel obstruction Atrophic uterus Urinary bladder intact Severe osteopenia IMPRESSION: Marked enlargement cardiac contour Primary hepatocellular disease Cholelithiasis, recommend hepatobiliary sonography follow-up Umbilical hernia defect containing bowel but no incarcerated bowel No bowel obstruction
[2024-10-25] MEDS: PANTOPRAZOLE INJ 40 MG VIAL IVP (10:05)
--- NOTE | 2024-10-25 11:13 | ESCONSULT_ITS ---
<Statement entered by Shane Kraus MD - 10/26/24 17:50> The patient is evaluated by me recently hospitalized [facility] decubital ulcer dementia chronically ill not doing well not followed by medical doctors recent hospitalization elevated troponin coronary angiogram is normal patient did have moderate pulmonary hypertension PA pressure around 65-70 echocardiogram usually overestimates the PA pressures in the event patient may have primary pulmonary hypertension but currently manage medically she is not very symptomatic as she is not active enough to be symptomatic from pulmonary hypertension has been managed medically clinically stable from cardiovascular point of view A-fib is controlled well without any medications. Patient probably had infection and pneumonia treat underlying infection with antibiotics no further recommendation from cardiology point of view for now as of the pH is concerned we will manage medically without any specific drugs for now. HPI Data of Consult Requesting Physician: Louise Quintanilla MD Admitting Provider: Jhony Calero MD Attending Provider: Louise Quintanilla MD Primary Care Provider: Shane Kraus MD Consult Narrative History of present illness: 79 y/o F with PMHx significant for A-fib, HTN, CAD, chronic encephalopathy, unspecified heart failure, coming from [facility] with shortness of breath x 1 day. She was noted to be short of breath and had difficulty breathing during rounds, found to have low O2 saturation. EMS noted patient was tachycardic and tachypneic on arrival. She received albuterol on scene with mild improvement in symptoms. Patient is lethargic and mildly disoriented at baseline due to chronic encephalopathy, no significant change in mental status. Of note, patient underwent cardiac catheterization 10/15/24 for NSTEMI, found to have no coronary obstructions, normal left ventricular function with EF 60%, heavy MAC. Patient endorses shortness of breath, but denies chest pain, palpitations, weakness, fatigue. ED course: Labs significant for: WBC 23.4, hemoglobin 12.6, troponin peaked at 1.059, TSH 0.5, CRP 7.2, Pro-Deandre negative. Imaging significant for: CT chest showing enlarged cardiac contour, pulmonary arterial hypertension, no pulmonary embolism. Chest x-ray showed enlarged heart. EKG showed A-fib, rate controlled at 96 bpm. Patient received methylprednisone, Lasix, morphine, nitroglycerin, DuoNebs, and Rocephin in the ED. Cardiology consulted for concern for worsening heart function. Patient seen and examined at bedside. Patient appears lethargic, responsive to verbal stimuli, A&Ox2 at baseline. Complains of shortness of breath, but denies chest pain, orthopnea, palpitations. Troponin peaked at 1.059. No need for specific interventions from cardiology. cc:: cc: Louise Quintanilla MD Review of Systems Review of Systems Systems Reviewed: All systems reviewed, normal except as documented Past Medical History Past Medical History Comments PMH COMMENT: PMHx: A-fib, HTN, CAD, encephalopathy, unspecified heart failure PSHx: None MEDS: ELIQUIS 2.5 mg daily, PROTOSTAT oral liquid, CLOTRIMAZOLE vaginal 1% cream, bowel regiment. ALLERGIES: NKA FHx: Unable to obtain. SH: Denies tobacco, drug or alcohol use Exam Vital Signs Temp Pulse Resp BP Pulse Ox O2 Del Method O2 Flow Rate 97.8 F 88 16 96/70 98 Nasal Cannula 3 10/25/24 08:24 10/25/24 11:03 10/25/24 08:44 10/25/24 08:24 10/25/24 08:44 10/25/24 08:24 10/25/24 08:24 Narrative Exam PE: Gen: Well-developed and well-nourished. HEENT: NCAT, PERRLA, EOMI, MMM, anicteric conjunctivae. CVS: normal S1 and S2. No M/R/G. Irregular regular rhythm, regular rate. Resp: CTA B/L. No rhonchi, rales, crackles or wheezing. Abd: soft, non-tender, non-distended. Ventral hernia. MSK: Good ROM in BUE & BLE. No edema or rash. Neuro: CN II-XII grossly intact. Strength 5/5 in BUE & BLE. Alert and oriented x2. Lethargic, arousable to verbal stimulation. Psych: appropriate mood and affect. Results Labs 10/26/24 04:30 10/26/24 04:30 Labs: Short CBC 10/24/24 10/25/24 Range/Units 20:25 03:08 WBC 26.2 H 23.4 H (3.6-11.0) Thou/mm3 Hgb 12.9 12.6 (12.0-16.0) g/dL Hct 37.8 37.5 (36.0-46.0) % Plt Count 219 214 (140-440) Thou/mm3 BMP 10/24/24 10/25/24 20:25 03:08 Sodium 142 140 Potassium 3.8 4.1 Chloride 110 H 109 H Carbon Dioxide 24.6 23.8 BUN 20 19 Creatinine 0.6 0.7 Glucose 107 H 142 H Calcium 10.0 9.6 Cardiac Enzymes 10/24/24 10/25/24 10/25/24 Range/Units 20: 03:08 08:11 Troponin I 1.059 H* 0.944 H* 0.880 H* (0.0-0.045) ng/mL Liver Function 10/24/24 10/25/24 Range/Units 20:25 03:08 Total Bilirubin 1.2 1.3 H (0.3-1.2) mg/dL AST 21 16 (0-34) U/L ALT 27 26 (10-49) U/L Alkaline Phosphatase 85 79 (46-116) U/L Albumin 3.6 3.4 (3.4-4.8) gm/dL Urine 10/24/24 Range/Units 22:30 Urine Color Yellow (Lt Yel-Yel) Urine Clarity Clear (Clear/Hazy) Urine pH 5.5 (5.0-7.0) Ur Specific [place] 1.033 (1.001-1.035) Urine Protein Trace (Neg - Trace) Urine Glucose (UA) Negative (Negative) ABG Interpretation ABG results: 10/24/24 21:00 ABG pH 7.48 H ABG pCO2 33 ABG pO2 67 L ABG HCO3 25 ABG O2 Saturation 95 ABG Base Excess 2 Quality Measures Quality Measures VTE prophylaxis Advance care planning discussed with:: patient Medications Home Medications and Allergies Allergies Allergy/AdvReac Type Severity Reaction Status Date / Time No Known Allergies Allergy Unverified 10/11/24 11:51 Visit Medications Acetaminophen (Acetaminophen 325 Mg Tablet) 650 mg PO Q6H PRN PRN Reason: PAIN SCALE 1-3 (mild Stop: 11/24/24 00:27 Acetaminophen (Acetaminophen 325 Mg Tablet) 650 mg PO Q6H PRN PRN Reason: Fever >100.4 Stop: 11/24/24 00:27 Albuterol/Ipratropium (Albuterol/Ipratropium (Duoneb) Rt Krystina 3 Ml Nebu) 3 ml INH Q6HRRT CRYSTAL Stop: 11/24/24 06:59 Last Admin: 10/25/24 08:43 Dose: 3 ml Apixaban (Apixaban 2.5 Mg Tablet) 2.5 mg PO BID CRYSTAL Stop: 11/24/24 08:59 Last Admin: 10/25/24 10:04 Dose: Not Given Clotrimazole (Clotrimazole Vag Cr 1% 45 Gm Tube) 0 gm VAGINAL BID CRYSTAL Stop: 11/28/24 08:59 Last Admin: 10/25/24 10:05 Dose: Not Given Piperacillin/Tazobactam/Dextrose (Zosyn) 50 mls @ 12.5 mls/hr IV Q8HR CRYSTAL Stop: 11/01/24 13:59 Ondansetron HCl (Ondansetron Inj 2 Mg/Ml Inj 2 Ml) 4 mg IV Q6H PRN; Protocol PRN Reason: NAUSEA OR VOMITING Stop: 11/24/24 00:27 Pantoprazole Sodium (Pantoprazole Inj 40 Mg Vial) 40 mg IVP QDAY CRYSTAL Stop: 11/24/24 08:59 Last Admin: 10/25/24 10:05 Dose: 40 mg Discontinued Medications Furosemide (Furosemide Inj 10 Mg/Ml 4ml Vial) 40 mg IVP X1 ONE Stop: 10/24/24 21:33 Last Admin: 10/24/24 23:52 Dose: 40 mg Furosemide (Furosemide Inj 10 Mg/Ml Vial 2 Ml) 20 mg IVP QDAY CRYSTAL Stop: 11/24/24 08:59 Acetaminophen (Ofirmev Inj) 1,000 mg in 100 mls @ 250 mls/hr IV NOW ONE Stop: 10/24/24 21:00 Last Infusion: 10/24/24 21:22 Dose: Infused Ceftriaxone Sodium 1,000 mg/ (Sodium Chloride) 50 mls @ 100 mls/hr IV X1 ONE Stop: 10/24/24 21:06 Last Infusion: 10/24/24 21:23 Dose: Infused Doxycycline Hyclate 100 mg/ (Sodium Chloride) 100 mls @ 100 mls/hr IV BID CRYSTAL Stop: 11/01/24 08:59 Ceftriaxone Sodium/Dextrose (Rocephin/D5w 1gm Iv Premix) 50 mls @ 100 mls/hr IV QDAY CRYSTAL Stop: 11/01/24 08:59 Piperacillin/Tazobactam/Dextrose (Zosyn) 100 mls @ 200 mls/hr IV X1 ONE Stop: 10/25/24 06:14 Last Admin: 10/25/24 06:36 Dose: Not Given Piperacillin Sod/Tazobactam (Sod 4.5 gm/ Sodium Chloride) 100 mls @ 200 mls/hr IV X1 ONE Stop: 10/25/24 06:49 Last Infusion: 10/25/24 07:11 Dose: Infused Ketorolac Tromethamine (Ketorolac Inj 30 Mg/Ml Vial) 7.5 mg IVP X1 ONE Stop: 10/24/24 20:38 Last Admin: 10/24/24 20:51 Dose: 7.5 mg Methylprednisolone Sodium Succinate (Methylprednisolone Sod Succ 62.5 Mg/Ml 2ml Vial) 125 mg IVP X1 ONE Stop: 10/24/24 19:54 Last Admin: 10/24/24 20:51 Dose: 125 mg Morphine Sulfate (Morphine Sulf Inj 10 Mg/Ml Vial) 2 mg IVP X1 ONE Stop: 10/24/24 21:33 Last Admin: 10/25/24 02:54 Dose: Not Given Nitroglycerin (Nitroglycerin Oint 2% 1 Inch Packet) 1 inch TOP X1 ONE Stop: 10/24/24 21:33 Last Admin: 10/25/24 02:53 Dose: Not Given Sodium Chloride (Sodium Chloride Rt 10% 15 Ml Nebu) 5 ml INH X1 ONE Stop: 10/25/24 03:33 Sodium Chloride (Sodium Chloride Rt 10% 15 Ml Nebu) 5 ml INH X1 ONE Stop: 10/25/24 03:38 Assessment & Plan Plan 79-year-old female PMHx of A-fib, HTN, CAD, chronic encephalopathy, unspecified heart failure, admitted for acute hypoxic respiratory failure. #Atrial fibrillation #NSTEMI type II Troponin elevated, peaked at 1.059. Likely NSTEMI type 2, demand ischemia in setting of hypoxemia. History of A-fib, seen on EKG, rate controlled, no ST changes. Echo performed 10/11/2024 shows normal left ventricle size, EF 55%, severe MAC. Left heart cath performed 10/15/24 showed no coronary artery obstruction, left ventricle ejection fraction 60%, heavy MAC. 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 DVT prophylaxis: Eliquis GI prophylaxis: Protonix Diet: Cardiac Lines: Peripheral IV Code status: Full code Plan care discussed with attending Dr. Kraus. Chetan Tesfaye MD PGY?1
--- NOTE | 2024-10-25 11:56 | XR_ITS ---
Examination: CT brain head without contrast. 2-D sagittal coronal reconstructions Date and time of exam:October 25, 2024 1426 hours Comparison October 13, 2024 INDICATIONS: Altered mental status today CTDI: vol (mGy):48.4 DLP: (mGycm):1001 Technique: Multiple CT axial sections of the brain have been obtained, 5 mm slice thickness. Contrast has not been administered. 2-D sagittal, coronal reconstructions have been obtained Low dose protocols were performed. One or more of the following dose reduction techniques were used; automated exposure control, adjustment of the mA and/or KV according to patient size, use of iterative reconstruction technique. Findings: No significant ventricular enlargement. Intra-axial or extra-axial hemorrhage density is not seen. No mass effect or midline shift Basal cisterns are not remarkable. Fourth ventricle is midline. Cranial vault intact. Impression: Negative for acute hemorrhage, mass effect or midline shift Advise clinical correlation follow-up accordingly
--- NOTE | 2024-10-25 14:30 | PD.SURCONS ---
HPI Consult details Consult date: 10/25/24 Reason for consultation narrative: Ventral hernia History of present illness: 79-year-old female with multiple medical comorbidities including hypertension, heart failure, atrial fibrillation on Eliquis was admitted with shortness of breath. Patient was admitted to the hospital about 2 weeks ago with similar findings and was discharged. She is return to the emergency department with shortness of breath. CT scan of chest revealed pulmonary hypertension, no evidence of PE. Abdominal CT showed umbilical hernia without evidence of incarceration or bowel obstruction Meds Home Medications and Allergies Allergies Allergy/AdvReac Type Severity Reaction Status Date / Time No Known Allergies Allergy Unverified 10/11/24 11:51 Exam Vital Signs Temp Pulse Resp BP Pulse Ox O2 Del Method O2 Flow Rate 97.8 F 88 16 96/70 98 Nasal Cannula 3 10/25/24 08:24 10/25/24 11:03 10/25/24 08:44 10/25/24 08:24 10/25/24 08:44 10/25/24 08:24 10/25/24 08:24 Constitutional Constitutional: mild distress Routine Abdominal Exam Abdominal: Present soft, normoactive bowel sounds and hernia (Periumbilical hernia that is chronically incarcerated, no evidence of strangulation); Absent tenderness or distended Results Results: Laboratory Laboratory results: results reviewed Results: Imaging CT scan - abdomen: report reviewed and image reviewed CT scan - pelvis: report reviewed and image reviewed Assessment & Plan Additional Assessment Additional comments: Patient has chronically incarcerated periumbilical hernia without evidence of bowel obstruction or strangulation. Plan No indication for urgent surgical intervention as she has chronically incarcerated hernia. It has not changed since last CT scan that was done about 3 weeks ago. Once patient's medical issues are resolved she can be discharged
--- NOTE | 2024-10-25 14:35 | ESPR_ITS ---
<Statement entered by Balbir Pedroza MD - 10/26/24 16:56> I discussed with and supervised the recruitment intern physician involved in the care of this patient. Patient assessment and plan was discussed with entire medicine team, including my attending. I agree with the assessment and plan as documented by recruitment intern doctor. Patient care was discussed with my attending physician Dr. Socorro Pedroza, PGY-2 Documentation for date of: 10/25/24 Subjective Subjective Interval history: 10/25/2024: Patient is an overnight admit, initially suspected to have acute hypoxic respiratory failure secondary to pneumonia; however, patient has severe pulmonary arterial hypertension secondary likely to valvular heart disease with biatrial enlargement. Patient also is presenting with abdominal pain with presence of umbilical hernia. General surgery was consulted and upon reviewing CT abdomen pelvis there is no surgical intervention needed at this time. Will continue to treat patient with broad-spectrum IV antibiotics; however, prognosis remains guarded and the patient's family will require goals of care discussion. Patient's family is aware and they are discussing amongst themselves the next steps. Exam Vital Signs Temp Pulse Resp BP Pulse Ox O2 Del Method O2 Flow Rate 97.8 F 88 16 96/70 98 Nasal Cannula 3 10/25/24 08:24 10/25/24 11:03 10/25/24 08:44 10/25/24 08:24 10/25/24 08:44 10/25/24 08:24 10/25/24 08:24 Narrative Exam Physical Exam: GENERAL: Somnolent, appears frail and cachectic HEENT: NC/AT. Dry mucosa. PERRLA/EOMI. CARDIO: Heart RRR, no obvious murmurs, no JVD. PULM: No coughing or visible SOB. Lungs CTA B/L. GI: Abdomen soft but tender (patient grimacing), ND, umbilical hernia noted. +BS. SKIN/MSK/EXT: No wounds/discoloration/rashes/edema/amputations noted. +Pedal pulses present B/L. NEURO: Oriented x0 on exam, GCS 8, no focal neurological deficits, moves extremities x4. Objective Labs 10/27/24 04:44 10/27/24 04:44 Labs: Laboratory Results - last 24 hr 10/24/24 10/24/24 10/24/24 20:25 21:00 21:55 WBC 26.2 H RBC 4.20 Hgb 12.9 Hct 37.8 MCV 90 MCH 30.7 MCHC 34.1 RDW Std Deviation 49.6 H Plt Count 219 Neut % (Auto) 87 H Lymph % (Auto) [address] % (Auto) 7 Eos % (Auto) 0 Baso % (Auto) 0 Neut # (Auto) 22.7 H Lymph # (Auto) 1.1 Lane # (Auto) 2.0 H Eos # (Auto) 0.1 Baso # (Auto) 0.1 Immature Gran # (Auto) 0.27 H Absolute Nucleated RBC 0.00 Immature Gran % 1 H Nucleated RBC % 0 ESR D-Dimer 1070 H Puncture Site Left Brachial ABG pH 7.48 H ABG pCO2 33 ABG pO2 67 L ABG HCO3 25 ABG O2 Saturation 95 ABG Base Excess 2 FiO2 21 Sodium 142 Potassium 3.8 Chloride 110 H Carbon Dioxide 24.6 Anion Gap 7 BUN 20 Creatinine 0.6 Estim Creat Clear Calc 80.0 eGFR > 60 BUN/Creatinine Ratio 33 H Glucose 107 H Calculated Osmolality 285 Lactic Acid 1.5 Calcium 10.0 Corrected Calcium 10.3 H Phosphorus Magnesium 1.6 Total Bilirubin 1.2 AST 21 ALT 27 Alkaline Phosphatase 85 Troponin I 1.059 H* C-Reactive Prot, Quant B-Natriuretic Peptide 615 H* Total Protein 5.9 Albumin 3.6 Globulin 2.3 Albumin/Globulin Ratio 1.6 Procalcitonin TSH 1.54 Ur Collection Type Urine Color Urine Clarity Urine pH Ur Specific [place] Urine Protein Urine Glucose (UA) Urine Ketones Urine Blood Urine Nitrite Urine Bilirubin Urine Urobilinogen (Auto) Ur Leukocyte Esterase Urine RBC Urine WBC Ur Squamous Epith Cells Urine Bacteria Ur Culture Indicated? RSV Rapid Negative 10/24/24 10/25/24 10/25/24 22:30 03:06 03:08 WBC 23.4 H RBC 4.15 Hgb 12.6 Hct 37.5 MCV 90 MCH 30.4 MCHC 33.6 RDW Std Deviation 50.7 H Plt Count 214 Neut % (Auto) 96 H Lymph % (Auto) [address] % (Auto) 1 Eos % (Auto) 0 Baso % (Auto) 0 Neut # (Auto) 22.4 H Lymph # (Auto) 0.[address] # (Auto) 0.2 Eos # (Auto) 0.0 Baso # (Auto) 0.0 Immature Gran # (Auto) 0.21 H Absolute Nucleated RBC 0.00 Immature Gran % 1 H Nucleated RBC % 0 ESR 12 D-Dimer Puncture Site ABG pH ABG pCO2 ABG pO2 ABG HCO3 ABG O2 Saturation ABG Base Excess FiO2 Sodium 140 Potassium 4.1 Chloride 109 H Carbon Dioxide 23.8 Anion Gap 7 BUN 19 Creatinine 0.7 Estim Creat Clear Calc 68.5 eGFR > 60 BUN/Creatinine Ratio 27 H Glucose 142 H Calculated Osmolality 283 Lactic Acid Calcium 9.6 Corrected Calcium 10.1 Phosphorus 3.6 Magnesium 1.7 Total Bilirubin 1.3 H AST 16 ALT 26 Alkaline Phosphatase 79 Troponin I 0.944 H* C-Reactive Prot, Quant 7.2 H B-Natriuretic Peptide Total Protein 5.5 L Albumin 3.4 Globulin 2.1 L Albumin/Globulin Ratio 1.6 Procalcitonin 0.29 TSH Ur Collection Type Clean Catch Urine Color Yellow Urine Clarity Clear Urine pH 5.5 Ur Specific [place] 1.033 Urine Protein Trace Urine Glucose (UA) Negative Urine Ketones Negative Urine Blood Negative Urine Nitrite Negative Urine Bilirubin Negative Urine Urobilinogen (Auto) Negative Ur Leukocyte Esterase Negative Urine RBC 1 Urine WBC 2 Ur Squamous Epith Cells 1 Urine Bacteria None Ur Culture Indicated? Not Indicated RSV Rapid 10/25/24 08:11 WBC RBC Hgb Hct MCV MCH MCHC RDW Std Deviation Plt Count Neut % (Auto) Lymph % (Auto) Lane % (Auto) Eos % (Auto) Baso % (Auto) Neut # (Auto) Lymph # (Auto) Lane # (Auto) Eos # (Auto) Baso # (Auto) Immature Gran # (Auto) Absolute Nucleated RBC Immature Gran % Nucleated RBC % ESR D-Dimer Puncture Site ABG pH ABG pCO2 ABG pO2 ABG HCO3 ABG O2 Saturation ABG Base Excess FiO2 Sodium Potassium Chloride Carbon Dioxide Anion Gap BUN Creatinine Estim Creat Clear Calc eGFR BUN/Creatinine Ratio Glucose Calculated Osmolality Lactic Acid Calcium Corrected Calcium Phosphorus Magnesium Total Bilirubin AST ALT Alkaline Phosphatase Troponin I 0.880 H* C-Reactive Prot, Quant B-Natriuretic Peptide Total Protein Albumin Globulin Albumin/Globulin Ratio Procalcitonin TSH Ur Collection Type Urine Color Urine Clarity Urine pH Ur Specific [place] Urine Protein Urine Glucose (UA) Urine Ketones Urine Blood Urine Nitrite Urine Bilirubin Urine Urobilinogen (Auto) Ur Leukocyte Esterase Urine RBC Urine WBC Ur Squamous Epith Cells Urine Bacteria Ur Culture Indicated? RSV Rapid ABG Interpretation ABG results: 10/24/24 21:00 ABG pH 7.48 H ABG pCO2 33 ABG pO2 67 L ABG HCO3 25 ABG O2 Saturation 95 ABG Base Excess 2 Quality Measures Quality Measures VTE prophylaxis Advance care planning discussed with:: child (2 sons and daughter) Assessment & Plan Assessment Current Active Medications: Generic Name Dose Route Start Last Admin Trade Name Freq PRN Reason Stop Dose Admin Acetaminophen 650 mg 10/25/24 00:28 Acetaminophen 325 Mg Tablet PO 11/24/24 00:27 Q6H PRN PAIN SCALE 1-3 (mild Acetaminophen 650 mg 10/25/24 00:28 Acetaminophen 325 Mg Tablet PO 11/24/24 00:27 Q6H PRN Fever >100.4 Albuterol/Ipratropium 3 ml 10/25/24 07:00 10/25/24 08:43 Albuterol/Ipratropium (Duoneb) Rt Krystina 3 Ml Nebu INH 11/24/24 06:59 3 ml Q6HRRT CRYSTAL Administration Apixaban 2.5 mg 10/25/24 09:00 10/25/24 10:04 Apixaban 2.5 Mg Tablet PO 11/24/24 08:59 Not Given BID CRYSTAL Clotrimazole 0 gm 10/25/24 09:00 10/25/24 10:05 Clotrimazole Vag Cr 1% 45 Gm Tube VAGINAL 11/28/24 08:59 Not Given BID CRYSTAL Piperacillin/Tazobactam/Dextrose 50 mls @ 12.5 mls/hr 10/25/24 14:00 Zosyn IV 11/01/24 13:59 Q8HR CRYSTAL Ondansetron HCl 4 mg 10/25/24 00:28 Ondansetron Inj 2 Mg/Ml Inj 2 Ml IV 11/24/24 00:27 Q6H PRN NAUSEA OR VOMITING Protocol Pantoprazole Sodium 40 mg 10/25/24 09:00 10/25/24 10:05 Pantoprazole Inj 40 Mg Vial IVP 11/24/24 08:59 40 mg QDAY CRYSTAL Administration Plan 79-year-old female PMHx of A-fib, HTN, CAD, chronic encephalopathy, unspecified heart failure, pulmonary hypertension, admitted for acute hypoxic respiratory failure. #AHRF #Pulmonary arterial hypertension #Possible underlying pneumonia #Respiratory alkalosis #Chronic secondary metabolic alkalosis Found desatting in 80s and tachypneic at SNF during rounds on the morning of admission. Met 4/4 SIRS criteria on admission, tachypnea and tachycardia improved since. WBC 26.2, Tmax 101, BNP 615 Clear lung sounds on exam, but had trace bilateral lower extremity edema CXR showed mild to moderate CHF, no pneumonia. CT chest showed pulmonary hypertension, no pulmonary embolism. CTA negative for PE. Venous Doppler negative for DVT bilaterally ABG showed pH 7.48, pCO2 33, PaO2 67, bicarb 25. Currently satting well on 3L NC. Negative COVID, influenza A/B. Last echo from 10/11/2024 shows: Normal left ventricular size. Estimated EF 55%. RV is normal in size. RV systolic function is moderately decreased. Estimated RVSP, 83 mmHg. RAP 15. Severe biatrial dilation. Severe mitral annulus calcification with mild stenosis. Moderate MR and TR. Aortic valve sclerosis with Mild to moderate aortic regurgitation. Less than 50% respiratory change in dimension of the inferior vena cava abnormal. Plan: Patient has pulmonary arterial hypertension likely secondary to valvular heart disease; cardiology consulted Will diurese if blood pressure permits with Lasix Fluid restrictions Pending blood, sputum culture #Chronically incarcerated umbilical hernia Patient presenting with abdominal pain On exam, patient does have an umbilical hernia, grimaces upon palpation General surgery was consulted, appreciate recommendations CT abdomen pelvis shows: Marked enlargement cardiac contour. Primary hepatocellular disease. Cholelithiasis Umbilical hernia defect containing bowel but no incarcerated bowel. No bowel obstruction Plan: Continue IV Zosyn General Surgery does not recommend any surgical intervention Will monitor for any acute changes #Acute on chronic encephalopathy She was drowsy, difficult to awaken, likely secondary to AHRF Low suspicion for stroke. No focal neurological deficits Head CT shows negative for acute hemorrhage, mass effect or midline shift Plan: Continue monitor for any acute changes #Atrial fibrillation #Elevated troponin, peaked and downtrending Likely NSTEMI type 2, demand ischemia in setting of hypoxemia EKG shows A-fib, HR 96, no acute ST changes. [id number] score 5 Plan: Continue home eliquis 2.5 mg BID Stop trending troponin #Hypertension Patient has history of hypertension Currently normotensive to hypotensive Plan: Start antihypertensive as indicated. #Fungal Vulvovaginitis On examination, patient has satellite lesions and erythema in the groin region Plan: Continue home clotrimazole topical BID #Chronic malnutrition On home prostat 30 mg oral liquid Plan: Consult physician intensivist Hospital Management: Lines: PIV Bowel: Senna Diet: NPO, pending swallow eval GI prophylaxis: Protonix DVT prophylaxis: Eliquis Disposition: Treating acute hypoxic respiratory failure Code: Full Patient seen and assessed with attending Dr. Quintanilla and senior resident Dr. Yovany Langford, PGY-1 Attending Provider Attestation/Addendum I attest that I was physically present for the evaluation, physical examination, lab and imaging review of the patient with the residents. I discussed the case with the residents and agree with the findings and plans of care as documented above. Patient is an 79 years old female with past medical history of A-fib, hypertension, CAD, chronic encephalopathy, unspecified heart failure, pulmonary hypertension who presented to the ED with complaint of shortness of breath. She was found to have saturation of 80s, tachycardic and tachypneic and was admitted for acute hypoxic respiratory failure, possible pneumonia in setting of PAH. There was also concern for acute on chronic encephalopathy with known reducible abdominal hernia. At bedside, patient is somnolent, oriented x 0, unable to follow commands or answer questions. Abdomen was soft but tender with grimacing. General surgery was consulted, who recommended no surgical intervention at this time. We will continue with IV Zosyn for possible abdominal versus lung infection. Continues to be on Eliquis for A-fib. Cardiology following, appreciate recommendations. Louise Quintanilla MD
[2024-10-25] MEDS: PIPER/TAZO 3.375 GM 50 ML IV ×2 (16:01→21:20)
[2024-10-25] MEDS: APIXABAN 2.5 MG TABLET PO (21:20)
[2024-10-26] VITALS (12 sets, daily range): BP systolic 91–101; BP diastolic 62–72; PULSE 79–99; RESP 15–30; TEMP 36.1–36.6; O2SAT 94–100
[2024-10-26] MEDS: ALBUTEROL/IPRATROPIUM (Duoneb) RT SOL 3 ML NEBU INH ×3 (00:56→18:45)
[2024-10-26 05:37] LABS: Basophils % (Auto) 0 % (0-2.5); Eosinophils % (Auto) 0 % (0-10); Hemoglobin 12.1 g/dL (12.0-16.0); Immature Granulocytes % (Auto) 1 % (0-0); Immature Granulocytes Auto 0.21 Thou/mm3 (0.00-0.00); Lymphocytes # (Auto) 0.5 Thou/mm3 (1.0-4.8); Lymphocytes % (Auto) 2 % (10-50); Mean Corpuscular HGB Conc 33.6 g/dl (31.0-37.0); Mean Corpuscular Hemoglobin 30.4 pg (25.0-35.0); Mean Corpuscular Volume 91 fL (80-100); Monocytes # (Auto) 1.7 Thou/mm3 (0.0-0.8); Monocytes % (Auto) 7 % (0-12); Neutrophils # (Auto) 22.3 Thou/mm3 (1.8-7.7); Neutrophils % (Auto) 90 % (37-80); Nucleated Red Blood Cell % 0 /100 WBC (0); Platelet Count 205 Thou/mm3 (140-440); Red Blood Count 3.98 Miln/mm3 (4.00-5.20); White Blood Count 24.7 Thou/mm3 (3.6-11.0)
[2024-10-26] MEDS: PIPER/TAZO 3.375 GM 50 ML IV ×3 (05:53→21:29)
[2024-10-26 05:54] LABS: INR 1.1 (0.9-1.3); Prothrombin Time 12.1 Seconds (9.0-12.2)
[2024-10-26 06:48] LABS: Alanine Aminotransferase 19 U/L (10-49); Albumin, Serum 3.3 gm/dL (3.4-4.8); Albumin/Globulin Ratio 1.7 (1.2-2.2); Alkaline Phosphatase 69 U/L (46-116); Anion Gap 8 (7-16); Aspartate Amino Transferase < 8 U/L (0-34); BUN/Creatinine Ratio 35 Ratio (12-20); Bilirubin,Total 1.1 mg/dL (0.3-1.2); Blood Urea Nitrogen 21 mg/dL (9-23); Calcium 9.7 mg/dL (8.3-10.6); Calcium (Corrected) 10.3 mg/dL (8.5-10.1); Carbon Dioxide 24.6 mMol/L (20.0-31.0); Chloride 109 mMol/L (98-107); Creatinine (Component) 0.6 mg/dL (0.6-1.3); Estimated Creatinine Clearance 65.4 mL/min (>60); Globulin 1.9 gm/dL (2.3-3.5); Glucose 97 mg/dL (74-106); Magnesium 1.7 mg/dL (1.6-2.6); Osmolality,Calculated 286 (275-295); Phosphorous 2.5 mg/dL (2.4-5.1); Potassium 3.4 mMol/L (3.4-5.1); Sodium 142 mMol/L (136-145); Total Protein 5.2 gm/dL (5.7-8.2); eGFR > 60 See Note
[2024-10-26] MEDS: Magnesium Sulfate 4 GM Ivpb 4 GM/50 ML BAG IV (07:40)
[2024-10-26] MEDS: POTASSIUM CHLORIDE 20 mEq TABCR 40 MEQ PO (07:41)
[2024-10-26] MEDS: PANTOPRAZOLE INJ 40 MG VIAL IVP (09:12)
[2024-10-26] MEDS: APIXABAN 2.5 MG TABLET PO ×2 (09:14→21:29)
--- NOTE | 2024-10-26 14:15 | ESPR_ITS ---
<Statement entered by Balbir Pedroza MD - 10/27/24 06:27> I discussed with and supervised the international account representative physician involved in the care of this patient. Patient assessment and plan was discussed with entire medicine team, including my attending. I agree with the assessment and plan as documented by international account representative doctor. Patient care was discussed with my attending physician Dr. Johnnie Pedroza, PGY-2 Documentation for date of: 10/26/24 Subjective Subjective Interval history: 10/26/2024: No acute overnight events to report. Patient seen and examined hospital and remains somnolent, frail and cachectic. Patient's labs are concerning for leukocytosis without any source at this time. Will continue to monitor for any acute changes and treat with IV antibiotics. Cardiology states that the patient likely has pulmonary arterial hypertension; however, there is no need to do more invasive workup as there is no treatment for this condition at this time. Will have goals of care discussion with the family when possible. Exam Vital Signs Temp Pulse Resp BP Pulse Ox O2 Del Method O2 Flow Rate 97.3 F 95 18 93/63 96 Nasal Cannula 2 10/26/24 12:00 10/26/24 12:54 10/26/24 12:54 10/26/24 12:00 10/26/24 12:54 10/26/24 12:00 10/26/24 12:54 Narrative Exam Physical Exam: GENERAL: Somnolent, appears frail and cachectic HEENT: NC/AT. Dry mucosa. PERRLA/EOMI. CARDIO: Heart RRR, no obvious murmurs, no JVD. PULM: No coughing or visible SOB. Lungs CTA B/L. GI: Abdomen soft but tender (patient grimacing), ND, umbilical hernia noted. +BS. SKIN/MSK/EXT: No wounds/discoloration/rashes/edema/amputations noted. +Pedal pulses present B/L. NEURO: Oriented x0 on exam, GCS 8, no focal neurological deficits, moves extremities x4. Objective Labs 10/27/24 04:44 10/27/24 04:44 Labs: Laboratory Results - last 24 hr 10/26/24 04:30 WBC 24.7 H RBC 3.98 L Hgb 12.1 Hct 36.0 MCV 91 MCH 30.4 MCHC 33.6 RDW Std Deviation 51.0 H Plt Count 205 Neut % (Auto) 90 H Lymph % (Auto) 2 L [place] % (Auto) 7 Eos % (Auto) 0 Baso % (Auto) 0 Neut # (Auto) 22.3 H Lymph # (Auto) 0.5 L [place] # (Auto) 1.7 H Eos # (Auto) 0.0 Baso # (Auto) 0.0 Immature Gran # (Auto) 0.21 H Absolute Nucleated RBC 0.00 Immature Gran % 1 H Nucleated RBC % 0 PT 12.1 INR 1.1 Sodium 142 Potassium 3.4 D Chloride 109 H Carbon Dioxide 24.6 Anion Gap 8 BUN 21 Creatinine 0.6 Estim Creat Clear Calc 65.4 eGFR > 60 BUN/Creatinine Ratio 35 H Glucose 97 Calculated Osmolality 286 Calcium 9.7 Corrected Calcium 10.3 H Phosphorus 2.5 Magnesium 1.7 Total Bilirubin 1.1 AST < 8 ALT 19 Alkaline Phosphatase 69 Total Protein 5.2 L Albumin 3.3 L Globulin 1.9 L Albumin/Globulin Ratio 1.7 ABG Interpretation ABG results: 10/24/24 21:00 ABG pH 7.48 H ABG pCO2 33 ABG pO2 67 L ABG HCO3 25 ABG O2 Saturation 95 ABG Base Excess 2 Quality Measures Quality Measures VTE prophylaxis Advance care planning discussed with:: child Assessment & Plan Assessment Current Active Medications: Generic Name Dose Route Start Last Admin Trade Name Freq PRN Reason Stop Dose Admin Acetaminophen 650 mg 10/25/24 00:28 Acetaminophen 325 Mg Tablet PO 11/24/24 00:27 Q6H PRN PAIN SCALE 1-3 (mild Acetaminophen 650 mg 10/25/24 00:28 Acetaminophen 325 Mg Tablet PO 11/24/24 00:27 Q6H PRN Fever >100.4 Albuterol/Ipratropium 3 ml 10/25/24 07:00 10/26/24 06:49 Albuterol/Ipratropium (Duoneb) Rt Krystina 3 Ml Nebu INH 11/24/24 06:59 3 ml Q6HRRT CRYSTAL Administration Apixaban 2.5 mg 10/25/24 09:00 10/26/24 09:14 Apixaban 2.5 Mg Tablet PO 11/24/24 08:59 2.5 mg BID CRYSTAL Administration Piperacillin/Tazobactam/Dextrose 50 mls @ 12.5 mls/hr 10/25/24 14:00 10/26/24 05:53 Zosyn IV 11/01/24 13:59 12.5 mls/hr Q8HR CRYSTAL Administration Ondansetron HCl 4 mg 10/25/24 00:28 Ondansetron Inj 2 Mg/Ml Inj 2 Ml IV 11/24/24 00:27 Q6H PRN NAUSEA OR VOMITING Protocol Pantoprazole Sodium 40 mg 10/25/24 09:00 10/26/24 09:12 Pantoprazole Inj 40 Mg Vial IVP 11/24/24 08:59 40 mg QDAY CRYSTAL Administration Plan 79-year-old female PMHx of A-fib, HTN, CAD, chronic encephalopathy, unspecified heart failure, pulmonary hypertension, admitted for acute hypoxic respiratory failure. #AHRF #Pulmonary arterial hypertension #Possible underlying pneumonia #Respiratory alkalosis #Chronic secondary metabolic alkalosis Found desatting in 80s and tachypneic at SNF during rounds on the morning of admission. Met 4/4 SIRS criteria on admission, tachypnea and tachycardia improved since. WBC 26.2, Tmax 101, BNP 615 Clear lung sounds on exam, but had trace bilateral lower extremity edema CXR showed mild to moderate CHF, no pneumonia. CT chest showed pulmonary hypertension, no pulmonary embolism. CTA negative for PE. Venous Doppler negative for DVT bilaterally ABG showed pH 7.48, pCO2 33, PaO2 67, bicarb 25. Currently satting well on 3L NC. Negative COVID, influenza A/B. Last echo from 10/11/2024 shows: Normal left ventricular size. Estimated EF 55%. RV is normal in size. RV systolic function is moderately decreased. Estimated RVSP, 83 mmHg. RAP 15. Severe biatrial dilation. Severe mitral annulus calcification with mild stenosis. Moderate MR and TR. Aortic valve sclerosis with Mild to moderate aortic regurgitation. Less than 50% respiratory change in dimension of the inferior vena cava abnormal. Plan: Patient has extensive pulmonary arterial hypertension likely secondary to valvular heart disease; cardiology consulted Will diurese if blood pressure permits with Lasix Fluid restrictions Pending blood, sputum culture Will have goals of care discussion with the patient's family regarding declining status #Chronically incarcerated umbilical hernia Patient presenting with abdominal pain On exam, patient does have an umbilical hernia, grimaces upon palpation General surgery was consulted, appreciate recommendations CT abdomen pelvis shows: Marked enlargement cardiac contour. Primary hepatocellular disease. Cholelithiasis Umbilical hernia defect containing bowel but no incarcerated bowel. No bowel obstruction Plan: Continue IV Zosyn General Surgery does not recommend any surgical intervention Will monitor for any acute changes #Leukocytosis Patient has persistently elevated WBC count, initially presented with WBC of 26.2 now at 24.7 with left shift 90% neutrophil Initially lactic acid 1.5 Patient on 2 L satting 96 to 98% Source of infection remains obscure at this point Urinalysis negative for any signs of bacterial infection Chest x-ray shows no signs of acute infection CTA chest does not mention any pneumonia, CT abdomen pelvis noted Marked enlargement cardiac contour. Primary hepatocellular disease. Cholelithiasis with normal liver function enzymes Umbilical hernia defect containing bowel but no incarcerated bowel No bowel obstruction Plan: Continue to treat empirically #Acute on chronic encephalopathy She was drowsy, difficult to awaken, likely secondary to AHRF Low suspicion for stroke. No focal neurological deficits Head CT shows negative for acute hemorrhage, mass effect or midline shift Seems to be the patient's new baseline; moreover, patient's family does state that she gets more active throughout the day Plan: Continue monitor for any acute changes #Atrial fibrillation #Elevated troponin, peaked and downtrending Likely NSTEMI type 2, demand ischemia in setting of hypoxemia EKG shows A-fib, HR 96, no acute ST changes. [id number] score 5 Plan: Continue home eliquis 2.5 mg BID Stopped trending troponin #Hypertension Patient has history of hypertension Currently normotensive to hypotensive - will hold Plan: Start antihypertensive as indicated. #Fungal Vulvovaginitis On examination, patient has satellite lesions and erythema in the groin region Plan: Discontinued clotrimazole as pharmacy does not have in formulary any more #Chronic malnutrition On home prostat 30 mg oral liquid Plan: Consult try out person Hospital Management: Lines: PIV Bowel: Senna Diet: NPO, pending swallow eval GI prophylaxis: Protonix DVT prophylaxis: Eliquis Disposition: Treating acute hypoxic respiratory failure, goals of care discussion for pulmonary arterial hypertension Code: Full Patient seen and assessed with attending Dr. Quintanilla and senior resident Dr. Yovany Langford, PGY-1 Attending Provider Attestation/Addendum I attest that I was physically present for the evaluation, physical examination, lab and imaging review of the patient with the residents. I discussed the case with the residents and agree with the findings and plans of care as documented above. Louise Quintanilla MD
--- NOTE | 2024-10-26 16:16 | PC.SS ---
Ina Macias is an 79 year-old female admitted to [facility] for SOB. SS met with the pt at bedside, pt was resting and was accompanied by sons, Casey Macias [phone] and Joshtova Harper [phone]. Casey answered on behalf of the pt. Casey confirmed demographic information. Casey reports he is the main DM and Josh is secondary. Casey reports pt was recently DC to [facility]. Plan will be for the pt to return to [facility]. No further needs identified, SS will remain available for any additional needs. Plan: SNF-[facility] DM: Casey Joe PCP: Efra
--- NOTE | 2024-10-26 16:30 | ESPR_ITS ---
<Statement entered by Shane Kraus MD - 10/26/24 17:57> The patient is seen in cardiology rounds today patient elderly female with history multiple problems negative coronary angiogram recent admission with normal coronary arteries and normal left ventricle function, chronic atrial fibrillation rate control has decubitus ulcers and multiple problems came to the hospital from senior living facility with shortness of breath and possibly pneumonia causing her symptoms treated with antibiotic therapy patient does have of note moderate to severe pulmonary hypertension by cardiac echo in the previous hospitalization did not pursue any specific therapy since the patient is quite inactive difficult to assess certain how symptomatic she is from pulmonary hypertension. It could be a mixed bag Group 1 and group 3 since she has history of lung disease as well but mostly Group 1 pulmonary hypertension may require specific therapy if she gets ambulation and has shortness of breath on ambulation but for now manage with no specific drug therapy for now if she does get better and is symptomatic with shortness of breath may consider right heart catheterization sometime later before starting any specific pulmonary artery hypertension drugs. For now no plan to perform right heart catheterization. Documentation for date of: 10/26/24 Subjective Subjective Interval history: No overnight events. Patient seen examined at bedside. Patient more alert, but per family patient remains confused, likely due to infection. Patient denies chest pain, shortness of breath, palpitations. Primary team planning to hold goals of care conversation with family due to poor overall prognosis. Exam Vital Signs Temp Pulse Resp BP Pulse Ox O2 Del Method O2 Flow Rate 97.6 F 81 17 94/67 98 Nasal Cannula 2 10/26/24 16:00 10/26/24 16:00 10/26/24 16:00 10/26/24 16:00 10/26/24 16:00 10/26/24 16:10/26/24 16:00 Narrative Exam PE: Gen: Well-developed and well-nourished. HEENT: NCAT, PERRLA, EOMI, MMM, anicteric conjunctivae. CVS: normal S1 and S2. No M/R/G. Irregular regular rhythm, regular rate. Resp: CTA B/L. No rhonchi, rales, crackles or wheezing. Abd: soft, non-tender, non-distended. Ventral hernia. MSK: Good ROM in BUE & BLE. No edema or rash. Neuro: CN II-XII grossly intact. Strength 5/5 in BUE & BLE. Alert and oriented x2. Psych: appropriate mood and affect. Objective Labs 10/26/24 04:30 10/26/24 04:30 Labs: Laboratory Results - last 24 hr 10/26/24 04:30 WBC 24.7 H RBC 3.98 L Hgb 12.1 Hct 36.0 MCV 91 MCH 30.4 MCHC 33.6 RDW Std Deviation 51.0 H Plt Count 205 Neut % (Auto) 90 H Lymph % (Auto) 2 L Bracken % (Auto) 7 Eos % (Auto) 0 Baso % (Auto) 0 Neut # (Auto) 22.3 H Lymph # (Auto) 0.5 L Bracken # (Auto) 1.7 H Eos # (Auto) 0.0 Baso # (Auto) 0.0 Immature Gran # (Auto) 0.21 H Absolute Nucleated RBC 0.00 Immature Gran % 1 H Nucleated RBC % 0 PT 12.1 INR 1.1 Sodium 142 Potassium 3.4 D Chloride 109 H Carbon Dioxide 24.6 Anion Gap 8 BUN 21 Creatinine 0.6 Estim Creat Clear Calc 65.4 eGFR > 60 BUN/Creatinine Ratio 35 H Glucose 97 Calculated Osmolality 286 Calcium 9.7 Corrected Calcium 10.3 H Phosphorus 2.5 Magnesium 1.7 Total Bilirubin 1.1 AST < 8 ALT 19 Alkaline Phosphatase 69 Total Protein 5.2 L Albumin 3.3 L Globulin 1.9 L Albumin/Globulin Ratio 1.7 ABG Interpretation ABG results: 10/24/24 21:00 ABG pH 7.48 H ABG pCO2 33 ABG pO2 67 L ABG HCO3 25 ABG O2 Saturation 95 ABG Base Excess 2 Quality Measures Quality Measures VTE prophylaxis Advance care planning discussed with:: patient and child Assessment & Plan Assessment Current Active Medications: Generic Name Dose Route Start Last Admin Trade Name Freq PRN Reason Stop Dose Admin Acetaminophen 650 mg 10/25/24 00:28 Acetaminophen 325 Mg Tablet PO 11/24/24 00:27 Q6H PRN PAIN SCALE 1-3 (mild Acetaminophen 650 mg 10/25/24 00:28 Acetaminophen 325 Mg Tablet PO 11/24/24 00:27 Q6H PRN Fever >100.4 Albuterol/Ipratropium 3 ml 10/25/24 07:00 10/26/24 12:54 Albuterol/Ipratropium (Duoneb) Rt Krystina 3 Ml Nebu INH 11/24/24 06:59 Not Given Q6HRRT CRYSTAL Apixaban 2.5 mg 10/25/24 09:00 10/26/24 09:14 Apixaban 2.5 Mg Tablet PO 11/24/24 08:59 2.5 mg BID CRYSTAL Administration Piperacillin/Tazobactam/Dextrose 50 mls @ 12.5 mls/hr 10/25/24 14:00 10/26/24 14:33 Zosyn IV 11/01/24 13:59 12.5 mls/hr Q8HR CRYSTAL Administration Ondansetron HCl 4 mg 10/25/24 00:28 Ondansetron Inj 2 Mg/Ml Inj 2 Ml IV 11/24/24 00:27 Q6H PRN NAUSEA OR VOMITING Protocol Pantoprazole Sodium 40 mg 10/25/24 09:00 10/26/24 09:12 Pantoprazole Inj 40 Mg Vial IVP 11/24/24 08:59 40 mg QDAY CRYSTAL Administration Plan 79-year-old female PMHx of A-fib, HTN, CAD, chronic encephalopathy, unspecified heart failure, admitted for acute hypoxic respiratory failure. #Atrial fibrillation #NSTEMI type II #Pulmonary arterial hypertension Troponin elevated, peaked at 1.059. Likely NSTEMI type 2, demand ischemia in setting of hypoxemia. History of A-fib, seen on EKG, rate controlled, no ST changes. Echo performed 10/11/2024 shows normal left ventricle size, EF 55%, severe MAC, elevated RVSP with atrial dilation indicating pulmonary arterial hypertension. Left heart cath performed 10/15/24 showed no coronary artery obstruction, left ventricle ejection fraction 60%, heavy MAC. Given patient's poor functional status, treatment for pulmonary arterial hypertension not appropriate. 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 DVT prophylaxis: Eliquis GI prophylaxis: Protonix Diet: Cardiac Lines: Peripheral IV Code status: Full code Plan care discussed with attending Dr. Kraus. Chetan Tesfaye MD PGY?1
[2024-10-27] VITALS (8 sets, daily range): BP systolic 91–108; BP diastolic 61–75; PULSE 74–97; RESP 15–29; TEMP 36–36.8; O2SAT 94–100; BMI 24.7
[2024-10-27] MEDS: ALBUTEROL/IPRATROPIUM (Duoneb) RT SOL 3 ML NEBU INH ×3 (00:31→13:23)
[2024-10-27] MEDS: PIPER/TAZO 3.375 GM 50 ML IV ×2 (05:46→13:15)
[2024-10-27 05:55] LABS: Basophils # (Auto) 0.1 Thou/mm3 (0.0-0.2); Basophils % (Auto) 0 % (0-2.5); Eosinophils # (Auto) 0.3 Thou/mm3 (0.0-0.5); Eosinophils % (Auto) 2 % (0-10); Hemoglobin 11.8 g/dL (12.0-16.0); Immature Granulocytes % (Auto) 1 % (0-0); Immature Granulocytes Auto 0.07 Thou/mm3 (0.00-0.00); Lymphocytes # (Auto) 1.1 Thou/mm3 (1.0-4.8); Lymphocytes % (Auto) 9 % (10-50); Mean Corpuscular HGB Conc 33.7 g/dl (31.0-37.0); Mean Corpuscular Hemoglobin 30.7 pg (25.0-35.0); Mean Corpuscular Volume 91 fL (80-100); Monocytes % (Auto) 8 % (0-12); Neutrophils # (Auto) 10.1 Thou/mm3 (1.8-7.7); Neutrophils % (Auto) 80 % (37-80); Nucleated Red Blood Cell % 0 /100 WBC (0); Platelet Count 191 Thou/mm3 (140-440); RDW Standard Deviation 51.8 fL (36.4-46.3); Red Blood Count 3.84 Miln/mm3 (4.00-5.20); White Blood Count 12.6 Thou/mm3 (3.6-11.0)
[2024-10-27 06:47] LABS: Alanine Aminotransferase 17 U/L (10-49); Albumin, Serum 3.1 gm/dL (3.4-4.8); Albumin/Globulin Ratio 1.6 (1.2-2.2); Alkaline Phosphatase 83 U/L (46-116); Anion Gap 8 (7-16); Aspartate Amino Transferase < 10 U/L (0-34); BUN/Creatinine Ratio 33 Ratio (12-20); Blood Urea Nitrogen 20 mg/dL (9-23); Calcium 9.4 mg/dL (8.3-10.6); Calcium (Corrected) 10.1 mg/dL (8.5-10.1); Chloride 109 mMol/L (98-107); Creatinine (Component) 0.6 mg/dL (0.6-1.3); Estimated Creatinine Clearance 65.4 mL/min (>60); Glucose 87 mg/dL (74-106); Osmolality,Calculated 282 (275-295); Phosphorous 2.2 mg/dL (2.4-5.1); Sodium 141 mMol/L (136-145); Total Protein 5.1 gm/dL (5.7-8.2); eGFR > 60 See Note
[2024-10-27] MEDS: APIXABAN 2.5 MG TABLET PO (09:24)
[2024-10-27] MEDS: SOD PHOS ADDITIVE 15 MMOL in SODIUM CHLORIDE 0.9% 250 ML 250 ML 62.5 MMOL IV (09:24)
[2024-10-27] MEDS: PANTOPRAZOLE INJ 40 MG VIAL IVP (09:24)
--- NOTE | 2024-10-27 10:15 | PC.SS ---
SS met with pt and son Casey at bedside, to discuss DC planning. Plan is for pt to return to [facility]. Casey had concern if pt was gonna be able to return. SS reached out to Naomi who stated yes she is clear to return. Casey also had concern with pt belongings. Per Naomi belongings were saved in their Social Workers office and they will bring it to her room when she is there. MANJEET explained there was no DC orders just yet but when they come through SS will work on transport and keep him posted on ETA.
--- NOTE | 2024-10-27 13:09 | ESDS_ITS ---
<Statement entered by Balbir Pedroza MD - 10/28/24 07:03> I discussed with and supervised the software intern physician involved in the care of this patient. Patient assessment and plan was discussed with entire medicine team, including my attending. I agree with the assessment and plan as documented by software intern doctor. Patient care was discussed with my attending physician Dr. [facility] Pedroza, PGY-2 Planned Discharge Date 10/27/24 DS: Providers Provider Date of admission: 10/25/24 00:28 Primary care physician: Shane Kraus MD Admitting Provider: Jhony Calero MD Attending Provider on Admission: Louise Quintanilla MD Consults: 10/25/24 00:31 Referral Registered Dietitian Routine Comment: On home pro-stat 30 cc daily 10/25/24 09:46 Consult to General Surgery Routine Comment: Consulting Provider: Lesley Martin 10/25/24 09:47 Consult to Cardiology Routine Comment: Hx of PAH likely secondary to valvular heart dx Consulting Provider: Shane Kraus 10/25/24 16:55 Referral Speech Therapy Routine Comment: 10/25/24 16:58 Referral Physical Therapy Routine Comment: Physician Instructions: 10/26/24 00:03 Referral Wound Care Urgent Comment: Multiple small sores to buttocks & inner thighs Attending Provider on DC: Dennis Langford MD Discharging Provider: Dennis Langford MD DS: Diagnosis Problem List Completed Was Problem List Reviewed/Reconciled?: Yes Hospital Course Hospital Course Hospital course: 79-year-old female with past medical history of A-fib, hypertension, CAD, chronic encephalopathy, pulmonary hypertension who presented to the ED on 10/25 from [facility] with shortness of breath and apparently desaturating when off oxygen. In the ED, patient had fever of 101, tachypneic, tachycardic with an elevated white blood cell count. Urinalysis was negative, chest x-ray showed mild to moderate CHF and CT of the chest showed pulmonary hypertension but no pulmonary embolism. Patient was admitted initially for suspected pneumonia or CHF exacerbation. Upon reassessment, patient did exhibit some abdominal pain with palpation and there was concern for incarcerated umbilical hernia. General surgery was consulted and based off CT findings diagnosis of chronically incarcerated periumbilical hernia with no evidence of bowel obstruction or strangulation was made. Patient's blood cultures were negative for 48 hours but due to her elevated WBC patient was treated with IV antibiotics and steadily had a downtrend in her WBC. Patient does have pulmonary arterial hypertension as evidenced by her echo findings from last admission. Patient is currently stable for discharge but will likely benefit from a referral to a technical sales director along with goals of care discussion with the family regarding her CODE STATUS. Please take Augmentin 500-125 mg tablet twice a day for 5 days for elevated leukocytosis during hospitalization Follow-up with the [facility] within 1 week; you could benefit from being referred to a Barrel Lathe Operator Inside for your Pulmonary Arterial Hypertension diagnosis Follow-up with Dr. 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 #Leukocytosis #Acute on chronic encephalopathy #Atrial fibrillation #Elevated troponin, peaked and downtrending #Hypertension #Fungal Vulvovaginitis #Chronic malnutrition Dennis Langford, PGY-1 Status at Discharge Overall status at discharge: patient is progressing back to baseline Time Spent with Patient Time attestation: Total time spent providing and/or coordinating discharge services: 45 minutes Time spent: Greater than 30 minutes Exam Vital Signs Temp Pulse Resp BP Pulse Ox O2 Del Method O2 Flow Rate 97.3 F 82 19 94/61 95 Nasal Cannula 0.5 10/27/24 08:00 10/27/24 08:00 10/27/24 08:00 10/27/24 08:00 10/27/24 08:00 10/27/24 08:00 10/27/24 08:00 Narrative Exam Physical Exam: GENERAL: Somnolent, appears frail and cachectic HEENT: NC/AT. Dry mucosa. PERRLA/EOMI. CARDIO: Heart RRR, no obvious murmurs, no JVD. PULM: No coughing or visible SOB. Lungs CTA B/L. GI: Abdomen soft but tender (patient grimacing), ND, umbilical hernia noted. +BS. SKIN/MSK/EXT: No wounds/discoloration/rashes/edema/amputations noted. +Pedal pulses present B/L. NEURO: Oriented x0 on exam, GCS 8, no focal neurological deficits, moves extremities x4. Discharge Plan Plan Patient Disposition: Xfer Skilled Nsg Fac (SNF) Disposition Comment: [facility] Plan Goals: Please take Augmentin 500-125 mg tablet twice a day for 5 days for elevated leukocytosis during hospitalization Follow-up with the [facility] within 1 week; you could benefit from being referred to a [facility] L[facility] Operator [facility] for your Pulmonary Arterial Hypertension diagnosis Follow-up with Dr. Kraus, cardiology, within 1-2 weeks Continue taking your other medications as prescribed If your symptoms worsen or if you develop worsening shortness of breath, chest pain or fainting/dizziness - please come back to the ED immediately Prescriptions/Referrals Prescriptions/Med Rec: New amoxicillin-pot clavulanate [Augmentin] 500-125 mg tablet 1 tab PO BID 5 Days Qty: 10 0RF Continued docusate sodium 100 mg Capsule 100 mg PO PRN PRN (Reason: constipation) Qty: 30 0RF Eliquis 2.5 mg Tablet 2.5 mg PO BID Qty: 60 3RF clotrimazole [Antifungal (clotrimazole)] 1 % cream 1 applic topical BID 14 Days Qty: 15 0RF Rx Instructions: Apply to affected regions, only external use. Referrals: Shane Kraus MD [Primary Care Provider] - Patient/Caregiver Discharge Instructions Discharge Activity: activity as tolerated Education Materials: Pulmonary Hypertension, Understanding Atrial Fibrillation Print Language: Swedish Stand Alone Forms: Nicole Award Info., Patient Portal Info Letter Discharge Order Discharge Orders: Discharge (Routine); Ordered 10/27/24 Ordered By: Dennis Langford Quality Discharge Quality Measures VTE prophylaxis Attestestation MD Attestation I attest that I was physically present for the evaluation, physical examination, lab and imaging review of the patient with the residents. I discussed the case with the residents and agree with the findings and plans of care as documented above. Louise Quintanilla MD
--- NOTE | 2024-10-27 13:50 | PC.SS ---
Addendum entered by Laverne Liang 10/27/24 15:23: ETA set for 0110 Original Note: [facility] trip #[id number], SS requested [place]. Pending eta
--- NOTE | 2024-10-30 15:02 | PC.SS ---
SS received call from Kayli at [facility] who states they did not received d/c orders or summary at time of d/c. SS has faxed patient's information to [facility], per Kayli's request.
== END 2024-10-27 17:23 | disposition skilled nursing facility (03) | DRG 291 ==
LOC: SERX 10-25 00:02 → SERHOLD 10-25 01:15 → S2NX 10-25 16:21
PROVIDERS: Admitting Provider Internal Medicine; Emergency Provider Emergency Medicine; PCP Internal Medicine Cardiovascular Disease; Visit Provider Student in an Organized Health Care Education/Training Program
DX: I11.0 Hypertensive heart disease with heart failure (principal); I50.33 Acute on chronic diastolic (congestive) heart failure; J18.9 Pneumonia, unspecified organism; J96.01 Acute respiratory failure with hypoxia; E87.3 Alkalosis; G93.49 Other encephalopathy; E46 Unspecified protein-calorie malnutrition; I48.20 Chronic atrial fibrillation, unspecified; K42.0 Umbilical hernia with obstruction, without gangrene; I27.21 Secondary pulmonary arterial hypertension; N76.0 Acute vaginitis; K43.9 Ventral hernia without obstruction or gangrene; K80.20 Calculus of gallbladder without cholecystitis without obstruction; D72.829 Elevated white blood cell count, unspecified; I25.10 Atherosclerotic heart disease of native coronary artery without angina pectoris; R79.89 Other specified abnormal findings of blood chemistry; I27.20 Pulmonary hypertension, unspecified; Z68.35 Body mass index [BMI] 35.0-35.9, adult; Z79.01 Long term (current) use of anticoagulants; Z11.52 Encounter for screening for COVID-19
CPT/HCPCS: 36415; 36600; 70450; 71045; 71275; 74176; 80053; 81001; 82803; 83605; 83735; 83880; 84100; 84145; 84443; 84484; 85025; 85379; 85610; 85652; 86140; 87040; 87081; 87205; 87400; 87634; 87811; 92610; 93005; 93970; 94640; 96374; 99291; A4649; A9270; J0131; J0696; J1885; J1940; J2470; J2543; J2919; J3475; J7050; Q9967

== ENCOUNTER 2024-11-08 18:05 | Emergency (ER) | payer MEDICARE, MEDICAID, SELFPAY ==
[2024-11-08 18:12] VITALS: PULSE 68; RESP 16; O2SAT 99
[2024-11-08 18:32] VITALS: BP 119/76; PULSE 77; RESP 15; TEMP 36.8; O2SAT 100
[2024-11-08 19:08] VITALS: BMI 22.6
--- NOTE | 2024-11-08 19:25 | EDRME_ITS ---
Rapid Medical Screening Exam RME Arrival date/time: 11/08/24 18:05 Chief Complaint: Altered Mental Status Time Seen by Provider: 11/08/24 19:40 Vital signs: Vital Signs Temperature 98.2 F 11/08/24 18:32 Pulse Rate 77 11/08/24 18:32 Respiratory Rate 15 11/08/24 18:32 Blood Pressure 119/76 11/08/24 18:32 Pulse Oximetry (%) 100 11/08/24 18:32 Oxygen Delivery Method Nasal Cannula 11/08/24 18:32 RME Narrative: 79-year-old female from [facility], brought in by ambulance at the request of her family, presents with acute altered mental status. Per family, the patient has been intermittently responsive for the past hour prior to arrival, described as waking briefly to answer questions before quickly falling back asleep. Per EMS report, vital signs were within normal limits en route. No reported history of recent trauma, fever, or preceding illness. MD Attestation MD Attestation Scribe Attestation: Melissa Valentin am scribing for and in the presence of Dr. Rutherford. Provider Notation: Although this document has been carefully reviewed, there may still be some phonetic and other typographical errors. These errors are purely grammatical due to imperfections in the software program and should not be co nstrued in any way to compromise the substance of the patient's medical care during this visit.
--- NOTE | 2024-11-08 19:41 | XR_ITS ---
Examination: CT brain head without contrast. 2-D sagittal coronal reconstructions Date and time of exam:October 31, 20242004 hrs. Indications: Altered mental status today CTDI: vol (mGy):45.6 DLP: (mGycm):118 Technique: Multiple CT axial sections of the brain have been obtained, 5 mm slice thickness. Contrast has not been administered. 2-D sagittal, coronal reconstructions have been obtained Low dose protocols were performed. One or more of the following dose reduction techniques were used; automated exposure control, adjustment of the mA and/or KV according to patient size, use of iterative reconstruction technique. Findings: No significant ventricular enlargement. Intra-axial or extra-axial hemorrhage density is not seen. No mass effect or midline shift Basal cisterns are not remarkable. Fourth ventricle is midline. Cranial vault intact. Impression: Negative for acute hemorrhage, mass effect or midline shift Clinical correlation advised and follow-up accordingly
[2024-11-08 20:32] LABS: Basophils # (Auto) 0.1 Thou/mm3 (0.0-0.2); Basophils % (Auto) 1 % (0-2.5); Eosinophils # (Auto) 0.3 Thou/mm3 (0.0-0.5); Eosinophils % (Auto) 5 % (0-10); Hematocrit 37.9 % (36.0-46.0); Hemoglobin 12.6 g/dL (12.0-16.0); Immature Granulocytes % (Auto) 2 % (0-0); Immature Granulocytes Auto 0.13 Thou/mm3 (0.00-0.00); Lymphocytes # (Auto) 1.7 Thou/mm3 (1.0-4.8); Lymphocytes % (Auto) 26 % (10-50); Mean Corpuscular HGB Conc 33.2 g/dl (31.0-37.0); Mean Corpuscular Hemoglobin 30.4 pg (25.0-35.0); Mean Corpuscular Volume 92 fL (80-100); Monocytes # (Auto) 0.9 Thou/mm3 (0.0-0.8); Monocytes % (Auto) 14 % (0-12); Neutrophils # (Auto) 3.4 Thou/mm3 (1.8-7.7); Neutrophils % (Auto) 52 % (37-80); Nucleated Red Blood Cell % 0 /100 WBC (0); Platelet Count 213 Thou/mm3 (140-440); RDW Standard Deviation 52.9 fL (36.4-46.3); Red Blood Count 4.14 Miln/mm3 (4.00-5.20); White Blood Count 6.5 Thou/mm3 (3.6-11.0)
--- NOTE | 2024-11-08 21:09 | EDNOTE_ITS ---
Altered Mental Status RME/HPI General Chief Complaint: Altered Mental Status Stated Complaint: AMS Time Seen by Provider: 11/08/24 19:40 Source: family and EMS Arrival date/time: 11/08/24 18:05 Mode of arrival: EMS Limitations: altered mental status RME / HPI RME / HPI narrative: Dr. Rutherford?s Main ED Evaluation: 79-year-old female from [facility], brought in by ambulance at the request of her family, presents with acute altered mental status. Per family, the patient has been intermittently responsive for the past hour prior to arrival, described as waking briefly to answer questions before quickly falling back asleep. Per EMS report, vital signs were within normal limits en route. No reported history of recent trauma, fever, or preceding illness. Related Data Previous Rx's ?Medication ?Instructions ?Recorded apixaban 2.5 mg tablet (Eliquis) 2.5 mg PO BID #60 tab s 10/16/24 docusate sodium 100 mg capsule 100 mg PO PRN PRN const ipation #30 10/16/24 caps Allergies Allergy/AdvReac Type Severity Reaction Status Date / Time No Known Allergies Allergy Verified 11/08/24 18:17 Review of Systems Review of Systems ROS Unobtainable: unobtainable due to mental status Past Medical History Past Medical History CARDIAC: Positive Cardiac Disorders; Negative Congestive Heart Failure RESPIRATORY: Negative Chronic Obstructive Pulmonary Disease (COPD) or Asthma GENITOURINARY: Negative Renal Disease ENDOCRINE: Negative Diabetes Mellitus Type 1 or Diabetes Mellitus Type 2 HEMATOLOGIC: Negative Sickle Cell Disease Social History SMOKING STATUS: Never smoker ED Exam General Limitations: Present altered mental status General appearance: Present alert, in no apparent distress and obtunded Head Head exam: Present atraumatic Eye Eye exam: Present normal appearance, PERRL and EOMI ENT ENT exam: Present normal exam, normal oropharynx and mucous membranes moist Neck Neck exam: Present normal inspection, full ROM and trachea midline Chest Chest inspection: Present normal inspection and symmetric chest wall rise Respiratory Respiratory exam: Present normal lung sounds bilaterally Cardiovascular Cardiovascular exam: Present regular rate, normal rhythm and normal heart sounds Abdominal Exam Abdominal exam: Present soft and normal bowel sounds Extremities Exam Extremities exam: Present normal inspection and full ROM Back Exam Back exam: Present normal inspection and full ROM Neurological Exam Neurological exam: Present alert and CN II-XII intact Expanded Neurological Exam Patient oriented to: Present person Psychiatric Psychiatric exam: Present normal affect and normal mood Skin Skin exam: Present warm, dry, intact and normal color Course Course Course Narrative: Decision to discharge the patient. The patient and all family were given an opportunity to ask questions and understood their discharge instructions. Discharge instructions specifically included follow up provider and time frame, current and/or new medications and possible side effects, indications for sooner follow up or return to the emergency department, and the expected course of current diagnosis. Quality Measures none Orders Category Date Time Status CT head/brain wo con Stat Exams 11/08/24 19:41 Completed CBC Stat Lab 11/08/24 20:21 Completed CMP [Comprehensive Metabolic Panel] Stat Lab 11/08/24 20:21 Completed Vital Signs Vital signs: Vital Signs Temperature 98.2 F 11/08/24 18:32 Pulse Rate 77 11/08/24 18:32 Respiratory Rate 15 11/08/24 18:32 Blood Pressure 119/76 11/08/24 18:32 Pulse Oximetry (%) 100 11/08/24 18:32 Oxygen Delivery Method Nasal Cannula 11/08/24 18:32 Altered Mental Status MDM Narrative MDM Narrative:: Scribe Attestation: I, Melissa Wick, am scribing for and in the presence of Dr. Rutherford. Provider Notation: Although this document has been carefully reviewed, there may still be some phonetic and other typographical errors. These errors are purely grammatical due to imperfections in the software program and should not be construed in any way to compromise the substance of the patient's medical care during this visit. Patient data External records reviewed:: [facility] previous records and EMS form Clinical information provided by:: EMS and family Social determinants that could affect healthcare access:: none Patient has the following chronic illnesses:: see PMH How is presenting disease/condition affected by chronic disease/condition?: uneffected by Evaluation data The following diagnostics were reviewed and interpreted by me:: lab results and radiology exam(s) Lab and/or radiology exams considered but not ordered:: na Interpretation Summary: I personally reviewed the radiology data and agree with the radiologist's interpretation. Examination: CT brain head without contrast. 2-D sagittal coronal reconstructions Date and time of exam:October 31, 20242004 hrs. Indications: Altered mental status today CTDI: vol (mGy):45.6 DLP: (mGycm):118 Technique: Multiple CT axial sections of the brain have been obtained, 5 mm slice thickness. Contrast has not been administered. 2-D sagittal, coronal reconstructions have been obtained Low dose protocols were performed. One or more of the following dose reduction techniques were used; automated exposure control, adjustment of the mA and/or KV according to patient size, use of iterative reconstruction technique. Findings: No significant ventricular enlargement. Intra-axial or extra-axial hemorrhage density is not seen. No mass effect or midline shift Basal cisterns are not remarkable. Fourth ventricle is midline. Cranial vault intact. Impression: Negative for acute hemorrhage, mass effect or midline shift Clinical correlation advised and follow-up accordingly Dictated By: Nael Zarate MD Medications / Prescriptions Medications or Prescriptions considered but not ordered:: na Medication administrations:: as above, if any Consultations Consultation(s) initiated? (list below): No Diagnosis Differential diagnosis altered mental status: altered mental status, dementia and other (dehydration, electrolyte imbalance, UTI) Most likely diagnosis given after review of the tests above:: see clinical impression Admission Indicated Admission indicated?: not indicated Admission Request Was there a request for admission?: No Disposition Plan Disposition Plan: Discharge Discharge Attestation Discharge Attestation: The patient and all family members were given an opportunity to ask questions and understood the discharge instructions. Discharge instructions specifically effects, indications for sooner follow up or return to the emergency department, and the expected course of current diagnosis. Patient condition: Stable Discharge Plan Plan Patient Disposition: HOME (Self Care) Patient condition on transfer: Stable Prescriptions/Referrals Prescriptions/Med Rec: No Action docusate sodium 100 mg Capsule 100 mg PO PRN PRN (Reason: constipation) Qty: 30 0RF Eliquis 2.5 mg Tablet 2.5 mg PO BID Qty: 60 3RF Referrals: No Primary/Family,Physician [Primary Care Provider] - In 1 week Problem List Clinical Impression: AMS (altered mental status) Patient/Caregiver Discharge Instructions Education Materials: ED Confusion Additional Instructions: Continue to hydrate with fluids so you do not get dehydrated. Return to the emergency department for any worsening symptoms, or any other concerns. Today your CAT scan does not show that you have a tumor or a bleed. Print Language: Citizen Of [place] Stand Alone Forms: Nicole Award Info., Patient Portal Info Letter
[2024-11-08 21:35] LABS: Alanine Aminotransferase 12 U/L (10-49); Albumin, Serum 3.6 gm/dL (3.4-4.8); Albumin/Globulin Ratio 1.8 (1.2-2.2); Alkaline Phosphatase 84 U/L (46-116); Anion Gap 5 (7-16); Aspartate Amino Transferase < 8 U/L (0-34); BUN/Creatinine Ratio 18 Ratio (12-20); Bilirubin,Total 0.8 mg/dL (0.3-1.2); Blood Urea Nitrogen 9 mg/dL (9-23); Calcium 9.8 mg/dL (8.3-10.6); Calcium (Corrected) 10.1 mg/dL (8.5-10.1); Carbon Dioxide 30.1 mMol/L (20.0-31.0); Chloride 109 mMol/L (98-107); Creatinine (Component) 0.5 mg/dL (0.6-1.3); Estimated Creatinine Clearance 67.7 mL/min (>60); Glucose 91 mg/dL (74-106); Osmolality,Calculated 285 (275-295); Potassium 4.5 mMol/L (3.4-5.1); Sodium 144 mMol/L (136-145); Total Protein 5.6 gm/dL (5.7-8.2); eGFR > 60 See Note
[2024-11-08 22:14] VITALS: BP 145/102; PULSE 85; RESP 16; O2SAT 94
[2024-11-08 22:55] VITALS: BP 129/83; PULSE 83; RESP 18; TEMP 36.5; O2SAT 95
--- NOTE | 2024-11-08 23:34 | PC.NURSE ---
report called via telephone to elvin salcido from [facility]
== END 2024-11-08 22:56 | disposition skilled nursing facility (03) ==
PROVIDERS: Emergency Provider Emergency Medicine
DX: R41.82 Altered mental status, unspecified (principal)
CPT/HCPCS: 36415; 70450; 80053; 85025; 99284